=== PATIENT | male | born 1955 | race Caucasian/White ===

== ENCOUNTER → 2016-06-16 | Outpatient (CLI) | payer BC ==
[~2016-06-16] MED LIST: ACET50TAOT PO; ALDA25TA2 PO; ASPI325T PO; ASPI325T28 PO; BACT800T5 PO; BAYE325T12 PO; BUPIVACAINE HCL 0.25% 10 ML VIAL As Ordered ONE; BUPIVACAINE HCL 0.25% 30 ML VIAL As Ordered ONE; CARV3.12 PO; CLEO300C2 PO; CLOP75TA2 PO; CORE25TA PO; CRES20TA PO; CRES5TAB PO; CYCL10TA PO; DOCU100C PO; DOCU10CA PO; FLAG500T PO; FLOM5CAP PO; ISOS30TA4 PO; LEVO750T33 PO; LISI-542 PO; LISI5TAB PO; MAGN400T PO; MAGN400T2 PO; METH-107 PO; MIRA255PW PO; MOM30SS PO; MORP15TASA PO; MULTTAB4 PO; NITR4TASL SL; NORCOTAB PO; NUCY75TA8 PO; OXYC5TAB2 PO; OYSCTAB PO; PANT40TA2 PO; PERC4TAB PO; SENN8.6C PO; SENO8.6T9 PO; SPIR25TA2 PO; TEST1INJ3 IM; TEST200I14 IM; TRAM50TA2 PO; TRIAMCINOLONE ACETONIDE SUSP 40 MG/ML VIAL (J3301) As Ordered ONE; ULTR50TA PO; VITA100066 PO; VITA1CAP2 PO; VITMTA PO; oxyCODONE 5MG TAB As Ordered ONE
--- NOTE | 2016-06-24 01:35 | ECWPNPC ---
PATIENT NAME: KAYLAN MCKOY : 1955 GENDER: MALE VISIT DATE: 06/16/2016 DISCHARGE DATE: 06/16/16 1413 VISIT LOCKED DATE TIME: PHYSICIAN: FILOMENA LAU RESOURCE: FILOMENA LAU REASON FOR APPOINTMENT 1. TPI CURRENT MEDICATIONS TAKING CARVEDILOL 3.125 MG TABLET 1 TABLET WITH FOOD ORALLY TWICE A DAY, NOTES: 06/16/16599 TAKING CRESTOR 20 MG TABLET 1 TABLET ORALLY ONCE A DAY, NOTES: 06/15/162099 TAKING ISOSORBIDE MONONITRATE CR 30 MG TABLET EXTENDED RELEASE 24 HOUR 1 TABLET ORALLY ONCE A DAY, NOTES: 06/16/16599 TAKING TESTOSTERONE CYPIONATE 100 MG/ML SOLUTION 1 ML INTRAMUSCULAR Q 2 WEEKS, NOTES: 3 WEEKS TAKING SPIRONOLACTONE 25 MG TABLET 1/2 TABLET ORALLY ONCE A DAY, NOTES: 06/16/16599 TAKING PANTOPRAZOLE SODIUM 40 MG TABLET DELAYED RELEASE 1 TABLET ORALLY ONCE A DAY, NOTES: 06/16/16599 TAKING PLAVIX 75 MG TABLET 1 TABLET ORALLY ONCE A DAY, NOTES: 06/15/162099 TAKING LISINOPRIL 5 MG TABLET 1 TABLET ORALLY TWICE A DAY, NOTES: 06/16/16599 TAKING MAGNESIUM 400 MG CAPSULE ORALLY TWICE A DAY, NOTES: 06/16/16599 TAKING VITAMIN D 2000 UNIT TABLET ORALLY BID, NOTES: 06/16/16599 TAKING MULTIPLE VITAMIN TABLET 1 TABLET ORALLY ONCE A DAY, NOTES: 06/16/16599 TAKING ASPIRIN 325 MG TABLET 1 TABLET ORALLY ONCE A DAY, NOTES: 06/16/16599 TAKING NITROGLYCERIN 0.4 MG TABLET SUBLINGUAL SUBLINGUAL DIRECTED FOR CHEST DISCOMFORT, NOTES: NONE RECENTLY TAKING DULCOLAX 100 MG TABLET 1 TABLET NEEDED P.O. QHS, NOTES: 06 TAKING SENNA PLUS 8.6-50 MG TABLET 1 TABLET ORALLY ONCE A DAY, NOTES: 06/15/152099 TAKING TAMSULOSIN HCL 0.4 MG CAPSULE EXTENDED RELEASE ORALLY DAILY, NOTES: 06/15/162099 TAKING TRAMADOL HCL 50 MG TABLET 1-2 TABLET ORALLY EVERY 6 HRS PRN PAIN MDD=6, NOTES: 06/15/16 1430 TAKING OXYCODONE-ACETAMINOPHEN 5-325 MG TABLET 1 TABLET NEEDED ORALLY EVERY 6 HRS PRN PAIN MDD=4, NOTES: 06/15/16 1430 TAKING NUCYNTA 75 MG TABLET 1 TABLET ORALLY EVERY 6 HRS PRN PAIN MDD=2, NOTES: 06/15/16 2100 TAKING CYCLOBENZAPRINE HCL 10 MG TABLET 1 TABLET ORALLY BID, NOTES: 06/15/162099 NOT-TAKING FLEXERIL 1 TAB ORAL TWICE A DAY NEEDED NOT-TAKING CIPRO 250 MG TABLET 1 TABLET ORALLY EVERY 12 HRS NOT-TAKING SENNA LAX 8.6 MG TABLET 1 TABLETS AT BEDTIME NEEDED ORALLY ONCE A DAY NOT-TAKING BACTRIM DS 800-160 MG TABLET 1 TABLET ORALLY EVERY 12 HOURS NOT-TAKING CUSTOM DO NOT USE TRAMADOL 50 MG TABLET ONE TAB ORALLY EVERY 4-6 HOURS PRN PAIN NOT-TAKING BACTRIM DS 800-160 MG TABLET 1 TABLET ORALLY EVERY 12 HOURS MEDICATION LIST REVIEWED AND RECONCILED WITH THE PATIENT PAST MEDICAL HISTORY HYPERTENSION HEART ATTACK HYPERCHOLESTEROLEMIA SHOULDER PAIN ALLERGIES AMOXICILLIN: RASH SURGICAL HISTORY BILALTERAL SHOULDER SURGERY CARDIAC STENTS X3 I & D [facility] HOSPITALIZATION/MAJOR DIAGNOSTIC PROCEDURE [facility]OTAL [facility] CARDIAC STENTS 2012 VITAL SIGNS WT 185 LBS, HT 66 IN, BMI 29.86 INDEX, BP 124/77 MM HG, HR 73 /MIN, RR 16 /MIN, TEMP 96.0 F, OXYGEN SAT % 96, NA INITIALS TL 1127, REVIEWED BY: LAYNE. ASSESSMENTS MYALGIA - M79.1 (PRIMARY) PROCEDURES PN TRIGGER POINT INJECTION WITH STEROIDS PRE PROCEDURE DIAGNOSIS 1. MYALGIA 2. PAIN AT BILATERAL NECK AREA, SHOULDER AREA, AND THORACIC AREA. POST PROCEDURE DIAGNOSIS 1. MYALGIA 2. PAIN AT BILATERAL NECK AREA, SHOULDER AREA, AND THORACIC AREA. PROCEDURE TRIGGER POINT INJECTION AT BILATERAL NECK AREA, SHOULDER AREA, AND THORACIC AREA. SURGEON DR. FILOMENA LAU SALVAGE MEND WORKER NONE ANESTHESIA LOCAL PRE PROCEDURE NOTE THE PATIENT HAS A HISTORY OF CHRONIC PAIN AT THE RIGHT AND LEFT NECK AREA, SHOULDER AREA, AND THORACIC AREA. I EVALUATE THE PATIENT AND REVIEWED THE CHART. THERE IS EVIDENCE OF BANDS OF TISSUE WITH RESTRICTION OF MOVEMENT AND PRESENCE OF TRIGGER POINT AT THE AFFECTED AREA. I WENT OVER THE RISKS, ALTERNATIVES, AND BENEFITS ASSOCIATED WITH THIS PROCEDURE. THE PATIENT WOULD LIKE TO PROCEED AND GIVE CONSENT TO PERFORMED THE PROCEDURE. THE PATIENT DENIES UNEXPLAINABLE WEIGHT LOSS, FEVER, CHILLS, OR NEW CHANGES IN URINARY OR BOWEL CONTROL DESCRIPTION OF PROCEDURE THE PATIENT WAS BROUGHT TO THE PROCEDURE ROOM AND PLACED IN THE SITTING POSITION. THE AREA WAS CLEANED WITH ALCOHOL. THE PROCEDURE WAS DONE USING ASEPTIC STERILE TECHNIQUE. I CHECKED LATERALITY AND THE LEVEL WHERE THE PROCEDURE WAS GOING TO BE PERFORMED WITH THE PATIENT AND THE SUPPORTING STAFF AT THE MOMENT OF THE TIME OUT IN THE PROCEDURE ROOM. USING A 25-GAUGE NEEDLE, TRIGGER POINTS WERE INJECTED AT THE RIGHT AND LEFT NECK AREA, SHOULDER AREA, AND THORACIC AREA WITH A TOTAL OF 40 ML OF BUPIVACAINE 0.25% AND KENALOG 40 MG. THERE WAS NO EVIDENCE OF BLOOD, PARESTHESIA OR CEREBROSPINAL FLUID DURING THE PROCEDURE. THE PATIENT WAS SENT TO THE RECOVERY ROOM. THE PATIENT WAS MOVING THE EXTREMITIES AND DOING WELL. THERE WAS NO COMPLICATION DURING THE PROCEDURE POST PROCEDURE NOTE THE PATIENT WILL BE SEEN IN A FOLLOW UP IN THE NEXT FEW WEEKS. INSTRUCTIONS WERE GIVEN, QUESTIONS WERE ANSWERED, AND THE PATIENT EXPRESSED UNDERSTANDING AND AGREES WITH THE PLAN. PROCEDURE CODES 65566 INJECT TRIGGER POINTS, =/> 3 FOLLOW UP 3 WEEKS ELECTRONICALLY SIGNED BY FILOMENA LAU MD ON 06/23/2016 AT 02:37 PM EST DISCLAIMER : THIS IS A VISIT SUMMARY EXTRACTED FROM THE [employer] CHART. IT IS NOT A COPY OF THE [employer] PROGRESS NOTE. MARI
== END ==
LOC: M PAIN 11:20
PROVIDERS: ATTEND Anesthesiology
DX: G89.29 Other chronic pain (principal); M79.1 Myalgia; M54.2 Cervicalgia; M25.511 Pain in right shoulder; M25.512 Pain in left shoulder; M54.6 Pain in thoracic spine; I10 Essential (primary) hypertension; I25.2 Old myocardial infarction; E78.00 Pure hypercholesterolemia, unspecified; Z88.8 Allergy status to other drugs, medicaments and biological substances; Z79.82 Long term (current) use of aspirin; Z79.891 Long term (current) use of opiate analgesic; Z79.899 Other long term (current) drug therapy
CPT/HCPCS: 20553; J3301

== ENCOUNTER → 2016-07-07 | Outpatient (CLI) | payer BC ==
[~2016-07-07] MED LIST changes: -BUPIVACAINE HCL 0.25% 10 ML VIAL As Ordered ONE; -BUPIVACAINE HCL 0.25% 30 ML VIAL As Ordered ONE; -TRIAMCINOLONE ACETONIDE SUSP 40 MG/ML VIAL (J3301) As Ordered ONE; -oxyCODONE 5MG TAB As Ordered ONE
--- NOTE | 2016-07-08 00:04 | ECWPNPC ---
PATIENT NAME: KAYLAN MCKOY : 1955 GENDER: MALE VISIT DATE: 07/07/2016 DISCHARGE DATE: 07/07/16 0959 VISIT LOCKED DATE TIME: PHYSICIAN: ADELINE JOHANSEN RESOURCE: ADELINE JOHANSEN REASON FOR APPOINTMENT 1. POST PROCEDURE-BACK HISTORY OF PRESENT ILLNESS HISTORY OF PRESENT ILLNESS: PAIN THE PATIENT DESCRIBES THE PAIN... FALL RISK SCREENING: SCREENING :NO FALLS IN THE PAST YEAR TODAY'S VISIT: NOTES: S/P TRIGGER POINT INJECTION TO UPPER SHOULDERS COMPLETED ON 06/16/16. NOTES PAIN WAS 8/10 AND PAIN DECREASED TO NEAR 0/10 FOR THE DAY. PAIN WAS BETTER IN THE MORNING AND INCREASED AFTER ACTIVITY AND BY BEDTIME. HAS FAIR MOVEMENT IN ROM OF BOTH ARMS. NOTES PAIN IS MORE CENTERED AT NECK WITH RADIATION INTO BOTH ARMS. IS HAVING INCREASING DIFFICULTY HOLDING OBJECTS AND WITH FINE MOTOT COORDINATION RIGHT GREATER THAN LEFT.. CURRENT MEDICATIONS TAKING CARVEDILOL 3.125 MG TABLET 1 TABLET WITH FOOD ORALLY TWICE A DAY, NOTES: 06/16/16599 TAKING CRESTOR 20 MG TABLET 1 TABLET ORALLY ONCE A DAY, NOTES: 06/15/16 2100 TAKING ISOSORBIDE MONONITRATE CR 30 MG TABLET EXTENDED RELEASE 24 HOUR 1 TABLET ORALLY ONCE A DAY, NOTES: 06/16/16599 TAKING TESTOSTERONE CYPIONATE 100 MG/ML SOLUTION 1 ML INTRAMUSCULAR Q 2 WEEKS, NOTES: 3 WEEKS TAKING SPIRONOLACTONE 25 MG TABLET 1/2 TABLET ORALLY ONCE A DAY, NOTES: 06/16/16599 TAKING PANTOPRAZOLE SODIUM 40 MG TABLET DELAYED RELEASE 1 TABLET ORALLY ONCE A DAY, NOTES: 06/16/16599 TAKING PLAVIX 75 MG TABLET 1 TABLET ORALLY ONCE A DAY, NOTES: 06/15/16 2100 TAKING LISINOPRIL 5 MG TABLET 1 TABLET ORALLY TWICE A DAY, NOTES: 06/16/16599 TAKING MAGNESIUM 400 MG CAPSULE ORALLY TWICE A DAY, NOTES: 06/16/16599 TAKING VITAMIN D 2000 UNIT TABLET ORALLY BID, NOTES: 06/16/16599 TAKING MULTIPLE VITAMIN TABLET 1 TABLET ORALLY ONCE A DAY, NOTES: 06/16/16599 TAKING ASPIRIN 325 MG TABLET 1 TABLET ORALLY ONCE A DAY, NOTES: 06/16/16599 TAKING NITROGLYCERIN 0.4 MG TABLET SUBLINGUAL SUBLINGUAL DIRECTED FOR CHEST DISCOMFORT, NOTES: NONE RECENTLY TAKING SENNA PLUS 8.6-50 MG TABLET 1 TABLET ORALLY ONCE A DAY, NOTES: 06/15/15 2100 TAKING TAMSULOSIN HCL 0.4 MG CAPSULE EXTENDED RELEASE ORALLY DAILY, NOTES: 06/15/16 2100 TAKING TRAMADOL HCL 50 MG TABLET 1-2 TABLET ORALLY EVERY 6 HRS PRN PAIN MDD=6, NOTES: 06/15/16 1430 TAKING OXYCODONE-ACETAMINOPHEN 5-325 MG TABLET 1 TABLET NEEDED ORALLY EVERY 6 HRS PRN PAIN MDD=4, NOTES: 06/15/16 1430 TAKING NUCYNTA 75 MG TABLET 1 TABLET ORALLY EVERY 6 HRS PRN PAIN MDD=2, NOTES: 06/15/16 2100 TAKING CYCLOBENZAPRINE HCL 10 MG TABLET 1 TABLET ORALLY BID, NOTES: 06/15/16 2100 TAKING DOC-Q-LACE 100MG DAILY AT BEDTIME NOT-TAKING FLEXERIL 1 TAB ORAL TWICE A DAY NEEDED NOT-TAKING CIPRO 250 MG TABLET 1 TABLET ORALLY EVERY 12 HRS NOT-TAKING SENNA LAX 8.6 MG TABLET 1 TABLETS AT BEDTIME NEEDED ORALLY ONCE A DAY NOT-TAKING BACTRIM DS 800-160 MG TABLET 1 TABLET ORALLY EVERY 12 HOURS NOT-TAKING CUSTOM DO NOT USE TRAMADOL 50 MG TABLET ONE TAB ORALLY EVERY 4-6 HOURS PRN PAIN NOT-TAKING BACTRIM DS 800-160 MG TABLET 1 TABLET ORALLY EVERY 12 HOURS DISCONTINUED DULCOLAX 100 MG TABLET 1 TABLET NEEDED P.O. QHS, NOTES: 0600 MEDICATION LIST REVIEWED AND RECONCILED WITH THE PATIENT PAST MEDICAL HISTORY HYPERTENSION HEART ATTACK HYPERCHOLESTEROLEMIA SHOULDER PAIN ALLERGIES AMOXICILLIN: RASH SOCIAL HISTORY GENERAL: TOBACCO USE ARE YOU A:NONSMOKER LEARNING BARRIERS / SPECIAL NEEDS ORIENTED TO PLAN OF CARE: PATIENT, PAIN MANAGEMENT PATIENT, ORIENTED TO PLAN OF CARE: PATIENT, PAIN MANAGEMENT PATIENT. NEW PATIENT PAIN DIARY TODAY'S VISITNOTES FROM 0-10, WHAT LEVEL IS YOUR PAIN TODAY?0 PAIN CLINIC PFS, CLERGY, PUBLIC HEALTH REFERRALS PFS REFERRAL NEEDED?NO CLERGY REFERRAL NEEDED?NO PUBLIC HEALTH REFERRAL NEEDED?NO WAS THE PROVIDER NOTIFIED OF ANY PERTINENT INFO?NO PFS REFERRAL NEEDED?NO CLERGY REFERRAL NEEDED?NO PUBLIC HEALTH REFERRAL NEEDED?NO WAS THE PROVIDER NOTIFIED OF ANY PERTINENT INFO?NO REVIEW OF SYSTEMS CONSTITUTIONAL: ANY CHANGE IN YOUR MEDICAL CONDITION? NO . CHILLS NO . FEVER NO . INFECTION: DO YOU HAVE NEW INFECTIONS? NO . DO YOU HAVE HISTORY OF MRSA? NO . MUSCULOSKELETAL: ANY NEW PATTERNS OF PAIN OR NUMBNESS? NO . GASTROENTEROLOGY: ANY NEW CHANGE IN BOWEL CONTROL? NO . GENITOURINARY: ANY NEW CHANGE IN BLADDER CONTROL? NO . IS THERE A CHANCE YOU COULD BE ? NO . HEMATOLOGY/LYMPH: DO YOU TAKE ANY BLOOD THINNERS? (FOR EXAMPLE- COUMADIN, PLAVIX, AGGRENOX, PLATEL, PRADAXA, OR XARELTO) YES PLAVIX . WHEN WAS YOUR LAST DOSE? DATE: TIME: . NEUROLOGY: HAVE YOU FALLEN IN THE PAST 6 MONTHS? NO . ANY NEW EXTREMITY NUMBNESS OR WEAKNESS? NO . CARDIOLOGY: DO YOU HAVE A PACEMAKER OR DEFIBRILLATOR? NO . CHEST PAIN PATIENT DENIES . RESPIRATORY: HAVE YOU BEEN SICK IN THE PAST WEEK? NO . FEVER NO . FLU LIKE SYMPTOMS? NO . COUGH NO . INTEGUMENTARY: DO YOU HAVE ANY RASHES OR OPEN SORES? NO . ALLERGIC/IMMUNO: ARE YOU ALLERGIC TO SHELLFISH OR IV DYE? NO . ANY NEW ALLERGIES? NO . PSYCHIATRIC: DO YOU HAVE THOUGHTS OF HURTING YOURSELF OR SOMEONE ELSE? NO . ARE YOU ABUSED, NEGLECTED, OR IN AN UNSAFE ENVIRONMENT? NO . ENDOCRINOLOGY: ARE YOU DIABETIC? NO . OTHER: DO YOU NEED ANY PRESCRIPTIONS? YES NUCYNTA, DOC-Q-LACE . IF YES, PLEASE LIST: ____ . ANY NEW PROBLEMS WITH YOUR MEDICATIONS? NO . WHEN DID YOU LAST EAT? ____ . WHEN DID YOU LAST DRINK? ____ . WHAT DID YOU LAST DRINK? ____ . NAME OF PERSON DRIVING YOU HOME? ____ . DO YOU HAVE ANY OTHER QUESTIONS OR CONCERNS NO . REVIEWED BY: PROVIDER: ADELINE HERRMANN . VITAL SIGNS WT 196.8 LBS, HT 66 IN, BMI 31.76 INDEX, BP 175/80 MM HG, HR 87 /MIN, RR 18 /MIN, TEMP 97.4 F, OXYGEN SAT % 96%, NA INITIALS SC 09:04, REVIEWED BY: MLF. EXAMINATION GENERAL EXAMINATION: PSYCHALERT , ORIENTED X 3 , APPROPRIATE MOOD AND AFFECT . LUNGS:CLEAR TO AUSCULTATION BILATERALLY. HEART:HEART RATE REGULAR. JOINTS:BILATERAL, SHOULDER , PAIN WITH PALPATION AND RANGE OF MOTION. TRIGGERPOINTS OVER SHOULDERS AND AROUND SHOULDER INCISIONS. NUMBNESS REPORTED WITH RIGHT SHOULDER ELEVATION. MINE SURVEYOR STRENGTH DECREASED RUE>LUE. NEUROLOGIC EXAM:DECREASED SENSATION ENTIRE RIGHT UPPER EXTREMITY, AND OVER C6-7 DERMATONE, C5 DERMATONE LEFT UPPER EXTREMITY. DTR'S 1+ RUE, TRACE TO ABSENT LEFT UPPER EXTREMITY.. ASSESSMENTS MYALGIA - M79.1 (PRIMARY) SHOULDER PAIN, BILATERAL - M25.511 CERVICAL RADICULOPATHY AT C6 - M54.12 CERVICAL DISC DISPLACEMENT - M50.20 TREATMENT MYALGIA REFILL NUCYNTA TABLET, 75 MG, 1 TABLET, ORALLY, EVERY 6 HRS PRN PAIN MDD=2, 30 DAY(S), 60, REFILLS 0, NOTES: 06/15/16 2100 START COLACE CAPSULE, 100 MG, 1 CAPSULE, ORALLY, BID, 30 DAY(S), 60 CAPSULE, REFILLS 4 [facility] MRI SPINE, CERVICAL WITHOUT [id number],SUSAN M 07/07/2016 9:52:10 AM > INCREASING PARETHESIAS, RADICALAR PAIN NOTES: ISTOP REGISTRY REVIEWED AND DEMNOSTRATES COMPLLIANCE. BRINGS IN MEDICATIONS WHICH IS APPROPRIATE FOR WHAT WAS DISPENSED. RECENT URINE TOXICOLOGY REVIEWED. NO UNAUTHORIZED MEDICATIONS. NO ILLICIT SUBSTANCES AND PRESCRIBED MEDICATIONS WERE PRESENT. [facility] RE[facility]ON:KNOWN C6-7 NERVE ROOT COMPRESSION, INCREASING PROBLEMS WITH DISTAL COORDINATION, RUE WEAKNESS, RADICULAR PAIN PROCEDURE CODES FA211 ESTABILISHED PATIENT [facility] FAC[facility] CHARGE FOLLOW UP 6 WEEKS (REASON: CHECK AUTH FOR MRI CERVICAL SPINE) ELECTRONICALLY SIGNED BY KHOA MULLINS ON 07/07/2016 AT 05:57 PM EST DISCLAIMER : THIS IS A VISIT SUMMARY EXTRACTED FROM THE [employer] CHART. IT IS NOT A COPY OF THE [employer] PROGRESS NOTE. MTDD
== END ==
LOC: M PAIN 09:00
PROVIDERS: ATTEND Nurse Practitioner Family
DX: Z09 Encounter for follow-up examination after completed treatment for conditions other than malignant neoplasm (principal); G89.29 Other chronic pain; M79.1 Myalgia; M25.511 Pain in right shoulder; M54.12 Radiculopathy, cervical region; M50.20 Other cervical disc displacement, unspecified cervical region; I10 Essential (primary) hypertension; E78.00 Pure hypercholesterolemia, unspecified; Z88.1 Allergy status to other antibiotic agents; Z79.01 Long term (current) use of anticoagulants; Z79.82 Long term (current) use of aspirin; Z79.891 Long term (current) use of opiate analgesic; Z79.899 Other long term (current) drug therapy; Z86.79 Personal history of other diseases of the circulatory system

== ENCOUNTER → 2016-07-21 | Outpatient (CLI) | payer BC ==
--- NOTE | 2016-07-21 11:31 | REP ---
MRI CERVICAL SPINE WITHOUT CONTRAST: HISTORY: Neck and bilateral shoulder pain. COMPARISON: 12/31/2014. A disc bulge is present at the C3-4 level. There is minimal effacement of the thecal sac without spinal cord compression. Uncinate process hypertrophy is present on the left. This produces minimal narrowing of the left C3 neural foramen. The right C3 neural foramen is patent. A disc bulge with associated osteophyte formation is present at the C4-5 level. There is moderate effacement of the thecal sac without spinal cord compression. Bilateral uncinate process hypertrophy is present. This produces mild narrowing of the C4 neural foramina. A disc bulge with associated osteophyte formation is present at the C5-6 level. The disc bulge is decreased in size. There is moderate effacement of the thecal sac without spinal cord compression. The previously noted minimal spinal cord compression is not seen. Bilateral uncinate process hypertrophy is present. This produces mild narrowing of the C5 neural foramina. A disc bulge is present at the C6-7 level. There is mild effacement of the thecal sac without spinal cord compression. Bilateral uncinate process hypertrophy is present. This produces minimal and moderate narrowing of the right and left C6 neural foramina respectively. There is no other disc bulge or herniation. The remaining neural foramina are patent. The spinal cord is normal in signal intensity. There is no intradural extramedullary lesion. The C4-5 through C6-7 intervertebral discs are decreased in height consistent with disc degeneration. Normal signal intensity is present in the cervical vertebral bodies. IMPRESSION: There is cervical spondylosis at the C3-4 through C6-7 levels without spinal cord compression. The previously noted spinal cord compression at the C5-6 level is not seen. There is no other significant change. Signed by Amaury Barajas MD 07/21/2016 11:34 A
== END ==
LOC: M RAD 08:39
PROVIDERS: ATTEND Nurse Practitioner Family
DX: M47.812 Spondylosis without myelopathy or radiculopathy, cervical region (principal)

== ENCOUNTER → 2016-07-31 | Outpatient (CLI) | payer BC | LOC: M LAB 08:38 | PROVIDERS: ATTEND Family Medicine | DX: E29.1 Testicular hypofunction (principal) ==

== ENCOUNTER → 2016-08-18 | Outpatient (CLI) | payer BC ==
--- NOTE | 2016-08-25 01:33 | ECWPNPC ---
PATIENT NAME: KAYLAN MCKOY : 1955 GENDER: MALE VISIT DATE: 08/18/2016 DISCHARGE DATE: 08/18/16 0959 VISIT LOCKED DATE TIME: PHYSICIAN: ADELINE JOHANSEN RESOURCE: ADELINE JOHANSEN REASON FOR APPOINTMENT 1. CHECK AUTH FOR MRI CERVICAL SPINE HISTORY OF PRESENT ILLNESS HISTORY OF PRESENT ILLNESS: PAIN THE PATIENT DESCRIBES THE PAIN... FALL RISK SCREENING: SCREENING :NO FALLS IN THE PAST YEAR TODAY'S VISIT: NOTES: COMPLETED MRI OF CSPINE - REFERRED TO DR LIN AT [facility]. IS ATTENDING PT AND IS BEING CONSIDERD FOR INJECTION TREATMENT. DOES REMAIN ON PLAVIX. PT IS HELPING. RATES PAIN TODAY 4/10. DESCRIBES PAIN CONSTANT, ACHING, SHARP TENDER AND SORE. COMTINUES TO STRUGGLE WIT ROM OF THE SHOULDERS.. CURRENT MEDICATIONS TAKING CARVEDILOL 3.125 MG TABLET 1 TABLET WITH FOOD ORALLY TWICE A DAY TAKING CRESTOR 20 MG TABLET 1 TABLET ORALLY ONCE A DAY TAKING ISOSORBIDE MONONITRATE CR 30 MG TABLET EXTENDED RELEASE 24 HOUR 1 TABLET ORALLY ONCE A DAY TAKING TESTOSTERONE CYPIONATE 100 MG/ML SOLUTION 1 ML INTRAMUSCULAR Q 2 WEEKS TAKING SPIRONOLACTONE 25 MG TABLET 1/2 TABLET ORALLY ONCE A DAY TAKING PANTOPRAZOLE SODIUM 40 MG TABLET DELAYED RELEASE 1 TABLET ORALLY ONCE A DAY TAKING PLAVIX 75 MG TABLET 1 TABLET ORALLY ONCE A DAY TAKING LISINOPRIL 5 MG TABLET 1 TABLET ORALLY TWICE A DAY TAKING MAGNESIUM 400 MG CAPSULE ORALLY TWICE A DAY TAKING VITAMIN D 2000 UNIT TABLET ORALLY BID TAKING MULTIPLE VITAMIN TABLET 1 TABLET ORALLY ONCE A DAY TAKING ASPIRIN 325 MG TABLET 1 TABLET ORALLY ONCE A DAY TAKING NITROGLYCERIN 0.4 MG TABLET SUBLINGUAL SUBLINGUAL DIRECTED FOR CHEST DISCOMFORT TAKING SENNA PLUS 8.6-50 MG TABLET 1 TABLET ORALLY ONCE A DAY TAKING TAMSULOSIN HCL 0.4 MG CAPSULE EXTENDED RELEASE ORALLY DAILY TAKING TRAMADOL HCL 50 MG TABLET 1-2 TABLET ORALLY EVERY 6 HRS PRN PAIN MDD=6 TAKING OXYCODONE-ACETAMINOPHEN 5-325 MG TABLET 1 TABLET NEEDED ORALLY EVERY 6 HRS PRN PAIN MDD=4 TAKING CYCLOBENZAPRINE HCL 10 MG TABLET 1 TABLET ORALLY BID TAKING NUCYNTA 75 MG TABLET 1 TABLET ORALLY EVERY 6 HRS PRN PAIN MDD=2 TAKING COLACE 100 MG CAPSULE 1 CAPSULE ORALLY BID NOT-TAKING DOC-Q-LACE 100MG DAILY AT BEDTIME NOT-TAKING FLEXERIL 1 TAB ORAL TWICE A DAY NEEDED NOT-TAKING CIPRO 250 MG TABLET 1 TABLET ORALLY EVERY 12 HRS NOT-TAKING SENNA LAX 8.6 MG TABLET 1 TABLETS AT BEDTIME NEEDED ORALLY ONCE A DAY NOT-TAKING BACTRIM DS 800-160 MG TABLET 1 TABLET ORALLY EVERY 12 HOURS NOT-TAKING CUSTOM DO NOT USE TRAMADOL 50 MG TABLET ONE TAB ORALLY EVERY 4-6 HOURS PRN PAIN NOT-TAKING BACTRIM DS 800-160 MG TABLET 1 TABLET ORALLY EVERY 12 HOURS MEDICATION LIST REVIEWED AND RECONCILED WITH THE PATIENT PAST MEDICAL HISTORY HYPERTENSION HEART ATTACK HYPERCHOLESTEROLEMIA SHOULDER PAIN ALLERGIES AMOXICILLIN: RASH SOCIAL HISTORY GENERAL: TOBACCO USE ARE YOU A:NONSMOKER LEARNING BARRIERS / SPECIAL NEEDS ORIENTED TO PLAN OF CARE: PATIENT, PAIN MANAGEMENT PATIENT, ORIENTED TO PLAN OF CARE: PATIENT, PAIN MANAGEMENT PATIENT. NEW PATIENT PAIN DIARY TODAY'S VISITNOTES FROM 0-10, WHAT LEVEL IS YOUR PAIN TODAY?0 PAIN CLINIC PFS, CLERGY, PUBLIC HEALTH REFERRALS PFS REFERRAL NEEDED?NO CLERGY REFERRAL NEEDED?NO PUBLIC HEALTH REFERRAL NEEDED?NO WAS THE PROVIDER NOTIFIED OF ANY PERTINENT INFO?NO PFS REFERRAL NEEDED?NO CLERGY REFERRAL NEEDED?NO PUBLIC HEALTH REFERRAL NEEDED?NO WAS THE PROVIDER NOTIFIED OF ANY PERTINENT INFO?NO REVIEW OF SYSTEMS CONSTITUTIONAL: ANY CHANGE IN YOUR MEDICAL CONDITION? NO . CHILLS NO . FEVER NO . INFECTION: DO YOU HAVE NEW INFECTIONS? NO . DO YOU HAVE HISTORY OF MRSA? NO . MUSCULOSKELETAL: ANY NEW PATTERNS OF PAIN OR NUMBNESS? NO . GASTROENTEROLOGY: ANY NEW CHANGE IN BOWEL CONTROL? NO . GENITOURINARY: ANY NEW CHANGE IN BLADDER CONTROL? NO . IS THERE A CHANCE YOU COULD BE ? NO . HEMATOLOGY/LYMPH: DO YOU TAKE ANY BLOOD THINNERS? (FOR EXAMPLE- COUMADIN, PLAVIX, AGGRENOX, PLATEL, PRADAXA, OR XARELTO) YES, PLAVIX . WHEN WAS YOUR LAST DOSE? DATE:08/18/16 TIME: 0600 . NEUROLOGY: HAVE YOU FALLEN IN THE PAST 6 MONTHS? NO . ANY NEW EXTREMITY NUMBNESS OR WEAKNESS? NO . CARDIOLOGY: DO YOU HAVE A PACEMAKER OR DEFIBRILLATOR? NO . CHEST PAIN NONE RECENT . RESPIRATORY: HAVE YOU BEEN SICK IN THE PAST WEEK? NO . FEVER NO . FLU LIKE SYMPTOMS? NO . COUGH NO . INTEGUMENTARY: DO YOU HAVE ANY RASHES OR OPEN SORES? NO . ALLERGIC/IMMUNO: ARE YOU ALLERGIC TO SHELLFISH OR IV DYE? NO . ANY NEW ALLERGIES? NO . PSYCHIATRIC: DO YOU HAVE THOUGHTS OF HURTING YOURSELF OR SOMEONE ELSE? NO . ARE YOU ABUSED, NEGLECTED, OR IN AN UNSAFE ENVIRONMENT? NO . ENDOCRINOLOGY: ARE YOU DIABETIC? NO . OTHER: DO YOU NEED ANY PRESCRIPTIONS? NO . IF YES, PLEASE LIST: ____ . ANY NEW PROBLEMS WITH YOUR MEDICATIONS? NO . WHEN DID YOU LAST EAT? ____ . WHEN DID YOU LAST DRINK? ____ . WHAT DID YOU LAST DRINK? ____ . NAME OF PERSON DRIVING YOU HOME? ____ . DO YOU HAVE ANY OTHER QUESTIONS OR CONCERNS NO . SKIN: DO YOU HAVE ANY RASHES OR OPEN SORES? ETREMELY DRY AND CRACKED SKIN OVER HANDS . REVIEWED BY: PROVIDER: ADELINE HERRMANN . VITAL SIGNS WT 196.8 LBS, HT 66 IN, BMI 31.76 INDEX, BP 152/96 MM HG, HR 89 /MIN, RR 16 /MIN, TEMP 96.6 F, OXYGEN SAT % 97, NA INITIALS TL 0859, REVIEWED BY: YENNI BP- RN C.S. AWARE- TL. EXAMINATION GENERAL EXAMINATION: PSYCHALERT , ORIENTED X 3 , APPROPRIATE MOOD AND AFFECT . LUNGS:CLEAR TO AUSCULTATION BILATERALLY. HEART:HEART RATE REGULAR. JOINTS:BILATERAL, SHOULDER , PAIN WITH PALPATION AND RANGE OF MOTION. TRIGGERPOINTS OVER SHOULDERS AND AROUND SHOULDER INCISIONS. NUMBNESS REPORTED WITH RIGHT SHOULDER ELEVATION. SWITCHBOARD OPERATOR SUPERVISOR STRENGTH DECREASED RUE>LUE. NEUROLOGIC EXAM:DECREASED SENSATION ENTIRE RIGHT UPPER EXTREMITY, AND OVER C6-7 DERMATONE, C5 DERMATONE LEFT UPPER EXTREMITY. DTR'S 1+ RUE, TRACE TO ABSENT LEFT UPPER EXTREMITY.. ASSESSMENTS MYALGIA - M79.1 (PRIMARY) SHOULDER PAIN, BILATERAL - M25.511 CERVICAL RADICULOPATHY AT C6 - M54.12 CERVICAL DISC DISPLACEMENT - M50.20 TREATMENT MYALGIA NOTES: CONTINUE PHYSICAL THERAPY. FOLLOW UP WITH DR HEATON AND SOS. CALL WHEN MEDS DUE. PROCEDURE CODES FA211 ESTABILISHED PATIENT [facility] FACILITY CHARGE DISPOSITION & COMMUNICATION FOLLOW UP 2-3 MONTHS ELECTRONICALLY SIGNED BY KHOA MULLINS ON 08/22/2016 AT 09:54 AM EDT DISCLAIMER : THIS IS A VISIT SUMMARY EXTRACTED FROM THE [employer] CHART. IT IS NOT A COPY OF THE [employer] PROGRESS NOTE. MARI
== END ==
LOC: M PAIN 09:00
PROVIDERS: ATTEND Nurse Practitioner Family
DX: Z09 Encounter for follow-up examination after completed treatment for conditions other than malignant neoplasm (principal); G89.29 Other chronic pain; M79.1 Myalgia; M25.511 Pain in right shoulder; M54.12 Radiculopathy, cervical region; M50.20 Other cervical disc displacement, unspecified cervical region; I10 Essential (primary) hypertension; Z86.79 Personal history of other diseases of the circulatory system; E78.00 Pure hypercholesterolemia, unspecified; Z88.0 Allergy status to penicillin; Z79.01 Long term (current) use of anticoagulants; Z79.82 Long term (current) use of aspirin; Z79.891 Long term (current) use of opiate analgesic; Z79.899 Other long term (current) drug therapy

== ENCOUNTER → 2016-11-03 | Outpatient (CLI) | payer BC ==
--- NOTE | 2016-11-25 00:31 | ECWPNPC ---
PATIENT NAME: KAYLAN MCKOY : 1955 GENDER: MALE VISIT DATE: 11/03/2016 DISCHARGE DATE: 11/03/16 1129 VISIT LOCKED DATE TIME: PHYSICIAN: ADELINE JOHANSEN RESOURCE: ADELINE JOHANSEN HISTORY OF PRESENT ILLNESS HISTORY OF PRESENT ILLNESS: PAIN THE PATIENT DESCRIBES THE PAIN... FALL RISK SCREENING: SCREENING :NO FALLS IN THE PAST YEAR TODAY'S VISIT: NOTES: RATES PAIN TODAY 2/10. NOTES WORST AREA IS BILATERAL SHOULDERS. IS ATTENDING PT FOR NECK. . CURRENT MEDICATIONS TAKING CARVEDILOL 3.125 MG TABLET 1 TABLET WITH FOOD ORALLY TWICE A DAY TAKING CRESTOR 20 MG TABLET 1 TABLET ORALLY ONCE A DAY TAKING ISOSORBIDE MONONITRATE ER 30 MG TABLET EXTENDED RELEASE 24 HOUR 1 TABLET ORALLY ONCE A DAY TAKING TESTOSTERONE CYPIONATE 100 MG/ML SOLUTION 1 ML INTRAMUSCULAR Q 2 WEEKS TAKING SPIRONOLACTONE 25 MG TABLET 1/2 TABLET ORALLY ONCE A DAY TAKING PANTOPRAZOLE SODIUM 40 MG TABLET DELAYED RELEASE 1 TABLET ORALLY ONCE A DAY TAKING PLAVIX 75 MG TABLET 1 TABLET ORALLY ONCE A DAY TAKING LISINOPRIL 5 MG TABLET 1 TABLET ORALLY TWICE A DAY TAKING MAGNESIUM 400 MG CAPSULE ORALLY TWICE A DAY TAKING VITAMIN D 2000 UNIT TABLET ORALLY BID TAKING MULTIPLE VITAMIN TABLET 1 TABLET ORALLY ONCE A DAY TAKING ASPIRIN 325 MG TABLET 1 TABLET ORALLY ONCE A DAY TAKING NITROGLYCERIN 0.4 MG TABLET SUBLINGUAL SUBLINGUAL DIRECTED FOR CHEST DISCOMFORT TAKING SENNA PLUS 8.6-50 MG TABLET 1 TABLET ORALLY ONCE A DAY TAKING TAMSULOSIN HCL 0.4 MG CAPSULE EXTENDED RELEASE ORALLY DAILY TAKING TRAMADOL HCL 50 MG TABLET 1-2 TABLET ORALLY EVERY 6 HRS PRN PAIN MDD=6 TAKING OXYCODONE-ACETAMINOPHEN 5-325 MG TABLET 1 TABLET NEEDED ORALLY EVERY 6 HRS PRN PAIN MDD=4 TAKING CYCLOBENZAPRINE HCL 10 MG TABLET 1 TABLET ORALLY BID TAKING NUCYNTA 75 MG TABLET 1 TABLET ORALLY EVERY 6 HRS PRN PAIN MDD=2 TAKING COLACE 100 MG CAPSULE 1 CAPSULE ORALLY BID NOT-TAKING BACTRIM DS 800-160 TABLET 1 TABLET ORALLY EVERY 12 HOURS NOT-TAKING DOC-Q-LACE 100MG DAILY AT BEDTIME NOT-TAKING FLEXERIL 1 TAB ORAL TWICE A DAY NEEDED NOT-TAKING CIPRO 250 MG TABLET 1 TABLET ORALLY EVERY 12 HRS NOT-TAKING SENNA LAX 8.6 MG TABLET 1 TABLETS AT BEDTIME NEEDED ORALLY ONCE A DAY NOT-TAKING BACTRIM DS 800-160 MG TABLET 1 TABLET ORALLY EVERY 12 HOURS NOT-TAKING CUSTOM DO NOT USE TRAMADOL 50 MG TABLET ONE TAB ORALLY EVERY 4-6 HOURS PRN PAIN DISCONTINUED BACTRIM DS 800-160 MG TABLET 1 TABLET ORALLY EVERY 12 HOURS NEEDED FOR 7 DAYS WHEN YOU GET A GROIN INFECTION MEDICATION LIST REVIEWED AND RECONCILED WITH THE PATIENT PAST MEDICAL HISTORY HYPERTENSION HEART ATTACK HYPERCHOLESTEROLEMIA SHOULDER PAIN ALLERGIES AMOXICILLIN: RASH REVIEW OF SYSTEMS CONSTITUTIONAL: ANY CHANGE IN YOUR MEDICAL CONDITION? UTI A MONTH AGO TREATED WITH BACTRIM DS . CHILLS NO . FEVER NO . INFECTION: DO YOU HAVE NEW INFECTIONS? NO . DO YOU HAVE HISTORY OF MRSA? NO . MUSCULOSKELETAL: ANY NEW PATTERNS OF PAIN OR NUMBNESS? NO . GASTROENTEROLOGY: ANY NEW CHANGE IN BOWEL CONTROL? NO . GENITOURINARY: ANY NEW CHANGE IN BLADDER CONTROL? NO . IS THERE A CHANCE YOU COULD BE ? NO . HEMATOLOGY/LYMPH: DO YOU TAKE ANY BLOOD THINNERS? (FOR EXAMPLE- COUMADIN, PLAVIX, AGGRENOX, PLATEL, PRADAXA, OR XARELTO) YES, PLAVIX . WHEN WAS YOUR LAST DOSE? DATE: TIME: 11/03/16 0600 . NEUROLOGY: HAVE YOU FALLEN IN THE PAST 6 MONTHS? NO . ANY NEW EXTREMITY NUMBNESS OR WEAKNESS? NO . CARDIOLOGY: DO YOU HAVE A PACEMAKER OR DEFIBRILLATOR? NO . ANGINA NO . RESPIRATORY: HAVE YOU BEEN SICK IN THE PAST WEEK? NO . FEVER NO . FLU LIKE SYMPTOMS? NO . COUGH NO . INTEGUMENTARY: DO YOU HAVE ANY RASHES OR OPEN SORES? NO . ALLERGIC/IMMUNO: ARE YOU ALLERGIC TO SHELLFISH OR IV DYE? NO . ANY NEW ALLERGIES? NO . PSYCHIATRIC: DO YOU HAVE THOUGHTS OF HURTING YOURSELF OR SOMEONE ELSE? NO . ARE YOU ABUSED, NEGLECTED, OR IN AN UNSAFE ENVIRONMENT? NO . ENDOCRINOLOGY: ARE YOU DIABETIC? NO . OTHER: DO YOU NEED ANY PRESCRIPTIONS? YES . IF YES, PLEASE LIST: NUCYNTA . ANY NEW PROBLEMS WITH YOUR MEDICATIONS? NO . WHEN DID YOU LAST EAT? ____ . WHEN DID YOU LAST DRINK? ____ . WHAT DID YOU LAST DRINK? ____ . NAME OF PERSON DRIVING YOU HOME? ____ . DO YOU HAVE ANY OTHER QUESTIONS OR CONCERNS NO . REVIEWED BY: PROVIDER: ADELINE WALKER PAIL BAILER . VITAL SIGNS WT 185 LBS, HT 66 IN, BMI 29.86 INDEX, BP 142/81 MM HG, HR 72 /MIN, RR 18 /MIN, TEMP 98.3 F, OXYGEN SAT % 95%, NA INITIALS AW 1043, REVIEWED BY: AD. EXAMINATION GENERAL EXAMINATION: PSYCHALERT , ORIENTED X 3 , APPROPRIATE MOOD AND AFFECT . LUNGS:CLEAR TO AUSCULTATION BILATERALLY. HEART:HEART RATE REGULAR. JOINTS:BILATERAL, SHOULDER , PAIN WITH PALPATION AND RANGE OF MOTION. TRIGGERPOINTS OVER SHOULDERS AND AROUND SHOULDER INCISIONS. NUMBNESS REPORTED WITH RIGHT SHOULDER ELEVATION. BRINE MIXER OPERATOR STRENGTH DECREASED RUE>LUE. NEUROLOGIC EXAM:DECREASED SENSATION ENTIRE RIGHT UPPER EXTREMITY, AND OVER C6-7 DERMATONE, C5 DERMATONE LEFT UPPER EXTREMITY. DTR'S 1+ RUE, TRACE TO ABSENT LEFT UPPER EXTREMITY.. ASSESSMENTS MYALGIA - M79.1 (PRIMARY) SHOULDER PAIN, BILATERAL - M25.511 CERVICAL RADICULOPATHY AT C6 - M54.12 CERVICAL DISC DISPLACEMENT - M50.20 TREATMENT MYALGIA REFILL NUCYNTA TABLET, 75 MG, 1 TABLET, ORALLY, EVERY 6 HRS PRN PAIN MDD=2, 30 DAY(S), 60, REFILLS 0 NOTES: COMPLETE PHYSICAL THERAPY. CONTINUE WALKING, EXERCISES AND STRETCHES. CONTINUE CURRENT MEDS. CLINICAL NOTES: ISTOP REGISTRY REVIEWED AND DEMNOSTRATES COMPLLIANCE. BRINGS IN MEDICATIONS WHICH IS APPROPRIATE FOR WHAT WAS DISPENSED. RECENT URINE TOXICOLOGY REVIEWED. NO UNAUTHORIZED MEDICATIONS. NO ILLICIT SUBSTANCES AND PRESCRIBED MEDICATIONS WERE PRESENT. PROCEDURE CODES FA211 ESTABILISHED PATIENT [facility] CHARGE DISPOSITION & COMMUNICATION FOLLOW UP 3 MONTHS (REASON: NECK, SHOULDER PAIN) ELECTRONICALLY SIGNED BY KHOA MULLINS ON 11/24/2016 AT 08:05 PM EDT DISCLAIMER : THIS IS A VISIT SUMMARY EXTRACTED FROM THE [employer] CHART. IT IS NOT A COPY OF THE [employer] PROGRESS NOTE. MARI
== END ==
LOC: M PAIN 10:40
PROVIDERS: ATTEND Nurse Practitioner Family
DX: M79.1 Myalgia (principal); M25.511 Pain in right shoulder; M54.12 Radiculopathy, cervical region; M50.20 Other cervical disc displacement, unspecified cervical region; Z79.82 Long term (current) use of aspirin; Z79.891 Long term (current) use of opiate analgesic; Z79.899 Other long term (current) drug therapy; Z88.0 Allergy status to penicillin

== ENCOUNTER → 2016-11-17 | Outpatient (CLI) | payer BC ==
[2016-11-17 06:43] LABS: MEAN CORPUSCULAR HGB CONC 32.9 g/dl (32.0-36.5); MEAN CORPUSCULAR VOLUME 91.3 fl (80.0-96.0); RED CELL DISTRIBUTION WIDTH 13.2 % (11.5-14.5); WHITE BLOOD COUNT 4.7 K/mm3 (4.0-10.0)
[2016-11-17 06:58] LABS: ALBUMIN 3.7 GM/DL (3.2-5.2); ALBUMIN/GLOBULIN RATIO 1.09 (1.00-1.93); BILIRUBIN,TOTAL 0.5 MG/DL (0.2-1.0); CALCIUM LEVEL 8.5 MG/DL (8.8-10.2); CREATININE FOR GFR 1.3 MG/DL (0.70-1.30); GLOMERULAR FILTRATION RATE 59.7 (>49); POTASSIUM SERUM 4.6 MEQ/L (3.5-5.1); TOTAL PROTEIN 7.1 GM/DL (6.4-8.2)
== END ==
LOC: M LAB 06:11
PROVIDERS: ATTEND Physician Assistant
DX: I25.10 Atherosclerotic heart disease of native coronary artery without angina pectoris (principal); I25.5 Ischemic cardiomyopathy; E78.2 Mixed hyperlipidemia

== ENCOUNTER → 2017-02-01 | Outpatient (CLI) | payer BC ==
[~2017-02-01] MED LIST changes: -DOCU100C PO; +DOCU100C16 PO; +LEVO750T13 PO; -LEVO750T33 PO; -METH-107 PO; +METH1TAB40 PO; +NUCY75TA3 PO; -NUCY75TA8 PO
--- NOTE | 2017-02-11 23:54 | ECWPNPC ---
PATIENT NAME: KAYLAN MCKOY : 1955 GENDER: MALE VISIT DATE: 02/01/2017 DISCHARGE DATE: 02/01/17912 VISIT LOCKED DATE TIME: PHYSICIAN: ADELINE JOHANSEN RESOURCE: ADELINE JOHANSEN REASON FOR APPOINTMENT 1. SHOULDERS HISTORY OF PRESENT ILLNESS HISTORY OF PRESENT ILLNESS: PAIN THE PATIENT DESCRIBES THE PAIN... FALL RISK SCREENING: SCREENING :NO FALLS IN THE PAST YEAR TODAY'S VISIT: NOTES: RATES PAIN TODAY 3/10. DESCRIBES PAIN INTERMITTANT, ACHING, SHARP, STABBING TENDER AND SORE. PAIN IN CENTERED IN BOTH SHOULDERS. REPORTS MEDICATIONS ALLOW FOR SLEEP AND RELIEF OF PAIN. CONTINES WITH HIS HOME EXERCISE PROGRAM. CURRENT MEDICATIONS TAKING CARVEDILOL 3.125 MG TABLET 1 TABLET WITH FOOD ORALLY TWICE A DAY TAKING CRESTOR 20 MG TABLET 1 TABLET ORALLY ONCE A DAY TAKING ISOSORBIDE MONONITRATE ER 30 MG TABLET EXTENDED RELEASE 24 HOUR 1 TABLET ORALLY ONCE A DAY TAKING TESTOSTERONE CYPIONATE 100 MG/ML SOLUTION 1 ML INTRAMUSCULAR Q 2 WEEKS TAKING SPIRONOLACTONE 25 MG TABLET 1/2 TABLET ORALLY ONCE A DAY TAKING PANTOPRAZOLE SODIUM 40 MG TABLET DELAYED RELEASE 1 TABLET ORALLY ONCE A DAY TAKING PLAVIX 75 MG TABLET 1 TABLET ORALLY ONCE A DAY TAKING LISINOPRIL 5 MG TABLET 1 TABLET ORALLY TWICE A DAY TAKING MAGNESIUM 400 MG CAPSULE ORALLY TWICE A DAY TAKING VITAMIN D 2000 UNIT TABLET ORALLY BID TAKING MULTIPLE VITAMIN TABLET 1 TABLET ORALLY ONCE A DAY TAKING ASPIRIN 325 MG TABLET 1 TABLET ORALLY ONCE A DAY TAKING NITROGLYCERIN 0.4 MG TABLET SUBLINGUAL SUBLINGUAL DIRECTED FOR CHEST DISCOMFORT TAKING SENNA PLUS 8.6-50 MG TABLET 1 TABLET ORALLY ONCE A DAY TAKING TAMSULOSIN HCL 0.4 MG CAPSULE EXTENDED RELEASE ORALLY DAILY TAKING OXYCODONE-ACETAMINOPHEN 5-325 MG TABLET 1 TABLET NEEDED ORALLY EVERY 6 HRS PRN PAIN MDD=4 TAKING CYCLOBENZAPRINE HCL 10 MG TABLET 1 TABLET ORALLY BID TAKING COLACE 100 MG CAPSULE 1 CAPSULE ORALLY BID TAKING NUCYNTA 75 MG TABLET 1 TABLET ORALLY EVERY 6 HRS PRN PAIN MDD=2 TAKING TRAMADOL HCL 50 MG TABLET 1-2 TABLET ORALLY EVERY 6 HRS PRN PAIN MDD=6 NOT-TAKING BACTRIM DS 800-160 TABLET 1 TABLET ORALLY EVERY 12 HOURS NOT-TAKING DOC-Q-LACE 100MG DAILY AT BEDTIME NOT-TAKING FLEXERIL 1 TAB ORAL TWICE A DAY NEEDED NOT-TAKING CIPRO 250 MG TABLET 1 TABLET ORALLY EVERY 12 HRS NOT-TAKING SENNA LAX 8.6 MG TABLET 1 TABLETS AT BEDTIME NEEDED ORALLY ONCE A DAY NOT-TAKING BACTRIM DS 800-160 MG TABLET 1 TABLET ORALLY EVERY 12 HOURS NOT-TAKING CUSTOM DO NOT USE TRAMADOL 50 MG TABLET ONE TAB ORALLY EVERY 4-6 HOURS PRN PAIN MEDICATION LIST REVIEWED AND RECONCILED WITH THE PATIENT PAST MEDICAL HISTORY HYPERTENSION HEART ATTACK HYPERCHOLESTEROLEMIA SHOULDER PAIN ALLERGIES AMOXICILLIN: RASH SURGICAL HISTORY BILALTERAL SHOULDER SURGERY CARDIAC STENTS X3 I & D SCROTAL MASS HOSPITALIZATION/MAJOR DIAGNOSTIC PROCEDURE SCROTAL MASS CARDIAC STENTS 2013 REVIEW OF SYSTEMS REVIEWED BY: PROVIDER: ADELINE HERRMANN . CONSTITUTIONAL: ANY CHANGE IN YOUR MEDICAL CONDITION? NO . CHILLS NO . FEVER NO . INFECTION: DO YOU HAVE NEW INFECTIONS? NO . DO YOU HAVE HISTORY OF MRSA? NO . MUSCULOSKELETAL: ANY NEW PATTERNS OF PAIN OR NUMBNESS? NO . GASTROENTEROLOGY: ANY NEW CHANGE IN BOWEL CONTROL? NO . GENITOURINARY: ANY NEW CHANGE IN BLADDER CONTROL? NO . IS THERE A CHANCE YOU COULD BE ? NO . HEMATOLOGY/LYMPH: DO YOU TAKE ANY BLOOD THINNERS? (FOR EXAMPLE- COUMADIN, PLAVIX, AGGRENOX, PLATEL, PRADAXA, OR XARELTO) YES, PLAVIX . WHEN WAS YOUR LAST DOSE? DATE: TIME: . NEUROLOGY: HAVE YOU FALLEN IN THE PAST 6 MONTHS? NO . ANY NEW EXTREMITY NUMBNESS OR WEAKNESS? NO . CARDIOLOGY: DO YOU HAVE A PACEMAKER OR DEFIBRILLATOR? NO . RESPIRATORY: HAVE YOU BEEN SICK IN THE PAST WEEK? NO . FEVER NO . FLU LIKE SYMPTOMS? NO . COUGH NO . INTEGUMENTARY: DO YOU HAVE ANY RASHES OR OPEN SORES? NO . ALLERGIC/IMMUNO: ARE YOU ALLERGIC TO SHELLFISH OR IV DYE? NO . ANY NEW ALLERGIES? NO . PSYCHIATRIC: DO YOU HAVE THOUGHTS OF HURTING YOURSELF OR SOMEONE ELSE? NO . ARE YOU ABUSED, NEGLECTED, OR IN AN UNSAFE ENVIRONMENT? NO . ENDOCRINOLOGY: ARE YOU DIABETIC? NO . OTHER: DO YOU NEED ANY PRESCRIPTIONS? YES, NUCYNTA, TRAMADOL . IF YES, PLEASE LIST: ____ . ANY NEW PROBLEMS WITH YOUR MEDICATIONS? NO . WHEN DID YOU LAST EAT? ____ . WHEN DID YOU LAST DRINK? ____ . WHAT DID YOU LAST DRINK? ____ . NAME OF PERSON DRIVING YOU HOME? ____ . DO YOU HAVE ANY OTHER QUESTIONS OR CONCERNS NO . VITAL SIGNS WT 191.6 LBS, HT 66 IN, BMI 30.92 INDEX, BP 136/89 MM HG, HR 73 /MIN, RR 18 /MIN, TEMP 97.8 F, OXYGEN SAT % 96%, NA INITIALS CM 0840, REVIEWED BY: EM. EXAMINATION GENERAL EXAMINATION: PSYCHALERT , ORIENTED X 3 , APPROPRIATE MOOD AND AFFECT . LUNGS:CLEAR TO AUSCULTATION BILATERALLY. HEART:HEART RATE REGULAR. JOINTS:BILATERAL, SHOULDER , PAIN WITH PALPATION AND RANGE OF MOTION. TRIGGERPOINTS OVER SHOULDERS AND AROUND SHOULDER INCISIONS. NUMBNESS REPORTED WITH RIGHT SHOULDER ELEVATION. SENIOR MANAGER MERGERS & ACQUISITIONS STRENGTH DECREASED RUE>LUE. NEUROLOGIC EXAM:DECREASED SENSATION ENTIRE RIGHT UPPER EXTREMITY, AND OVER C6-7 DERMATONE, C5 DERMATONE LEFT UPPER EXTREMITY. DTR'S 1+ RUE, TRACE TO ABSENT LEFT UPPER EXTREMITY.. ASSESSMENTS MYALGIA - M79.1 (PRIMARY) SHOULDER PAIN, BILATERAL - M25.511 CERVICAL RADICULOPATHY AT C6 - M54.12 CERVICAL DISC DISPLACEMENT - M50.20 CHRONIC PRESCRIPTION OPIATE USE - Z79.891 TREATMENT MYALGIA REFILL NUCYNTA TABLET, 75 MG, 1 TABLET, ORALLY, EVERY 6 HRS PRN PAIN MDD=2, 30 DAY(S), 60, REFILLS 0 REFILL TRAMADOL HCL TABLET, 50 MG, 1-2 TABLET, ORALLY, EVERY 6 HRS PRN PAIN MDD=6, 30 DAY(S), 180, REFILLS 3 NOTES: CONTINUE EXERCISES AND STRETCHES. CONTINUE CURRENT MEDS. CLINICAL NOTES: ISTOP REGISTRY REVIEWED AND DEMNOSTRATES COMPLLIANCE. BRINGS IN MEDICATIONS WHICH IS APPROPRIATE FOR WHAT WAS DISPENSED. RECENT URINE TOXICOLOGY REVIEWED. NO UNAUTHORIZED MEDICATIONS. NO ILLICIT SUBSTANCES AND PRESCRIBED MEDICATIONS WERE PRESENT. PROCEDURE CODES FA211 ESTABILISHED PATIENT [facility] CHARGE DISPOSITION & COMMUNICATION FOLLOW UP 3 MONTHS (REASON: SHOULDER PAIN) ELECTRONICALLY SIGNED BY KHOA MULLINS ON 02/11/2017 AT 04:10 PM EDT DISCLAIMER : THIS IS A VISIT SUMMARY EXTRACTED FROM THE [employer] CHART. IT IS NOT A COPY OF THE [employer] PROGRESS NOTE. MARI
== END ==
LOC: M PAIN 08:40
PROVIDERS: ATTEND Nurse Practitioner Family
DX: M79.1 Myalgia (principal); M25.511 Pain in right shoulder; M25.512 Pain in left shoulder; M54.12 Radiculopathy, cervical region; M50.20 Other cervical disc displacement, unspecified cervical region; I10 Essential (primary) hypertension; E78.00 Pure hypercholesterolemia, unspecified; I25.2 Old myocardial infarction; Z79.891 Long term (current) use of opiate analgesic; Z79.899 Other long term (current) drug therapy; Z79.82 Long term (current) use of aspirin; Z88.0 Allergy status to penicillin

== ENCOUNTER → 2017-03-01 | Outpatient (CLI) | payer BC ==
--- NOTE | 2017-03-01 08:57 | REP ---
Right wrist four views : There is no fracture or dislocation. Mineralization and joint spaces are normal. There are no calcifications or foreign bodies. Impression: Negative right wrist . Signed by Edu Sterling MD 03/01/2017 08:49 A
--- NOTE | 2017-03-01 08:58 | REP ---
Right hand four views : There is no fracture or dislocation. Mineralization and joint spaces are normal. There are no calcifications or foreign bodies. Impression: Negative right hand . Signed by Edu Sterling MD 03/01/2017 08:49 A
[2017-03-01 09:09] LABS: URIC ACID 5.7 MG/DL (3.5-7.2)
== END ==
LOC: M LAB 07:47
PROVIDERS: ATTEND Family Medicine
DX: M10.9 Gout, unspecified (principal)

== ENCOUNTER → 2017-05-07 | Outpatient (CLI) | payer BC | LOC: M PAIN 08:30 | PROVIDERS: ATTEND Nurse Practitioner Family | DX: M79.1 Myalgia (principal); M25.511 Pain in right shoulder; M54.12 Radiculopathy, cervical region; M50.20 Other cervical disc displacement, unspecified cervical region; I10 Essential (primary) hypertension; E78.00 Pure hypercholesterolemia, unspecified; I25.2 Old myocardial infarction; R07.89 Other chest pain; Z79.01 Long term (current) use of anticoagulants; Z79.82 Long term (current) use of aspirin; Z79.891 Long term (current) use of opiate analgesic; Z79.899 Other long term (current) drug therapy; Z88.0 Allergy status to penicillin; Z95.5 Presence of coronary angioplasty implant and graft ==

== ENCOUNTER → 2017-05-22 | Outpatient (CLI) | payer BC ==
[2017-05-22 07:16] LABS: MEAN CORPUSCULAR HEMOGLOBIN 30.4 pg (27.0-33.0); MEAN CORPUSCULAR HGB CONC 33.7 g/dl (32.0-36.5); MEAN CORPUSCULAR VOLUME 90.2 fl (80.0-96.0); PLATELET COUNT, AUTOMATED 293 10^3/uL (150-450); RED CELL DISTRIBUTION WIDTH 13.2 % (11.5-14.5); WHITE BLOOD COUNT 4.2 10^3/uL (4.0-10.0)
[2017-05-22 07:39] LABS: ALBUMIN 3.8 GM/DL (3.2-5.2); ALBUMIN/GLOBULIN RATIO 1.12 (1.00-1.93); ALKALINE PHOSPHATASE 83 U/L (45-117); ALT/SGPT 36 U/L (12-78); ANION GAP 10 MEQ/L (8-16); AST/SGOT 23 U/L (7-37); BILIRUBIN,TOTAL 0.6 MG/DL (0.2-1.0); BLOOD UREA NITROGEN 17 MG/DL (7-18); CALCIUM LEVEL 8.7 MG/DL (8.8-10.2); CARBON DIOXIDE LEVEL 27 MEQ/L (21-32); CHLORIDE LEVEL 103 MEQ/L (98-107); GLOMERULAR FILTRATION RATE > 60.0 (>49); GLUCOSE, FASTING 118 MG/DL (80-110); POTASSIUM SERUM 4.2 MEQ/L (3.5-5.1); SODIUM LEVEL 140 MEQ/L (136-145); TOTAL PROTEIN 7.2 GM/DL (6.4-8.2)
== END ==
LOC: M LAB 06:22
PROVIDERS: ATTEND Physician Assistant
DX: I25.10 Atherosclerotic heart disease of native coronary artery without angina pectoris (principal); E78.2 Mixed hyperlipidemia; I25.5 Ischemic cardiomyopathy

== ENCOUNTER → 2017-08-02 | Outpatient (CLI) | payer BC | LOC: M PAIN 15:00 | DX: M79.1 Myalgia (principal); M25.511 Pain in right shoulder; M54.12 Radiculopathy, cervical region; M50.20 Other cervical disc displacement, unspecified cervical region; I10 Essential (primary) hypertension; I25.2 Old myocardial infarction; Z79.82 Long term (current) use of aspirin; Z79.891 Long term (current) use of opiate analgesic; Z79.899 Other long term (current) drug therapy; Z88.0 Allergy status to penicillin; Z95.818 Presence of other cardiac implants and grafts | CPT/HCPCS: G0463 ==

== ENCOUNTER → 2017-08-22 | Outpatient (CLI) | payer BC ==
[2017-08-22 07:09] LABS: HEMATOCRIT 47.4 % (42.0-52.0); MEAN CORPUSCULAR HEMOGLOBIN 31.1 pg (27.0-33.0); MEAN CORPUSCULAR HGB CONC 33.8 g/dl (32.0-36.5); PLATELET COUNT, AUTOMATED 226 10^3/uL (150-450); RED BLOOD COUNT 5.15 10^6/uL (4.30-6.10); RED CELL DISTRIBUTION WIDTH 14.9 % (11.5-14.5)
[2017-08-22 07:20] LABS: INR 0.94; PROTHROMBIN TIME 12.7 SECONDS (12.4-14.5)
[2017-08-22 07:30] LABS: ESTIMATED AVERAGE GLUCOSE 157 MG/DL (60-110); HEMOGLOBIN A1c 7.1 %
[2017-08-22 07:45] LABS: ALBUMIN/GLOBULIN RATIO 1.25 (1.00-1.93); ALKALINE PHOSPHATASE 61 U/L (45-117); ALT/SGPT 39 U/L (12-78); ANION GAP 7 MEQ/L (8-16); AST/SGOT 16 U/L (7-37); BILIRUBIN,TOTAL 0.7 MG/DL (0.2-1.0); BLOOD UREA NITROGEN 23 MG/DL (7-18); CALCIUM LEVEL 8.7 MG/DL (8.8-10.2); CARBON DIOXIDE LEVEL 27 MEQ/L (21-32); CHLORIDE LEVEL 106 MEQ/L (98-107); CHOLESTEROL LEVEL 177 MG/DL (<200); CHOLESTEROL RISK RATIO 3.339 (<5); CREATININE FOR GFR 1.31 MG/DL (0.70-1.30); GLUCOSE, FASTING 125 MG/DL (70-100); HDL CHOLESTEROL 53 MG/DL (>40); LDL CHOLESTEROL 86.6 MG/DL (<100); NON-HDL-C 124 MG/DL; POTASSIUM SERUM 4.6 MEQ/L (3.5-5.1); SODIUM LEVEL 140 MEQ/L (136-145); TOTAL PROTEIN 7.2 GM/DL (6.4-8.2); TRIGLYCERIDES LEVEL 187 MG/DL (<150)
== END ==
LOC: M LAB 06:36
DX: Z01.818 Encounter for other preprocedural examination (principal); I10 Essential (primary) hypertension
CPT/HCPCS: 71046

== ENCOUNTER → 2017-11-27 | Outpatient (CLI) | payer BC | LOC: M PAIN 08:30 | DX: M79.1 Myalgia (principal); M25.511 Pain in right shoulder; I10 Essential (primary) hypertension; M96.1 Postlaminectomy syndrome, not elsewhere classified; K59.03 Drug induced constipation; E78.00 Pure hypercholesterolemia, unspecified; Z79.01 Long term (current) use of anticoagulants; Z79.82 Long term (current) use of aspirin; Z79.891 Long term (current) use of opiate analgesic; Z79.899 Other long term (current) drug therapy; Z88.0 Allergy status to penicillin | CPT/HCPCS: G0463 ==

== ENCOUNTER → 2018-01-29 | Outpatient (CLI) | payer BC | LOC: M PAIN 08:30 | DX: M79.1 Myalgia (principal); M25.511 Pain in right shoulder; M96.1 Postlaminectomy syndrome, not elsewhere classified; K59.03 Drug induced constipation; I10 Essential (primary) hypertension; E78.00 Pure hypercholesterolemia, unspecified; M19.90 Unspecified osteoarthritis, unspecified site; Z79.82 Long term (current) use of aspirin; Z79.01 Long term (current) use of anticoagulants; Z79.891 Long term (current) use of opiate analgesic; Z79.899 Other long term (current) drug therapy; Z88.1 Allergy status to other antibiotic agents; Z86.79 Personal history of other diseases of the circulatory system | CPT/HCPCS: G0463 ==

== ENCOUNTER → 2018-02-28 | Outpatient (CLI) | payer BC ==
[2018-02-28 07:33] LABS: HEMATOCRIT 42.1 % (42.0-52.0); HEMOGLOBIN 14.2 g/dl (13.5-17.5); MEAN CORPUSCULAR HEMOGLOBIN 30.5 pg (27.0-33.0); MEAN CORPUSCULAR HGB CONC 33.7 g/dl (32.0-36.5); MEAN CORPUSCULAR VOLUME 90.3 fl (80.0-96.0); PLATELET COUNT, AUTOMATED 259 10^3/uL (150-450); RED BLOOD COUNT 4.66 10^6/uL (4.30-6.10); RED CELL DISTRIBUTION WIDTH 12.5 % (11.5-14.5); WHITE BLOOD COUNT 3.9 10^3/uL (4.0-10.0)
[2018-02-28 08:15] LABS: ALBUMIN 3.8 GM/DL (3.2-5.2); ALBUMIN/GLOBULIN RATIO 1.19 (1.00-1.93); ALKALINE PHOSPHATASE 71 U/L (45-117); ALT/SGPT 38 U/L (12-78); ANION GAP 9 MEQ/L (8-16); AST/SGOT 23 U/L (7-37); BILIRUBIN,TOTAL 0.5 MG/DL (0.2-1.0); BLOOD UREA NITROGEN 18 MG/DL (7-18); CALCIUM LEVEL 8.5 MG/DL (8.8-10.2); CARBON DIOXIDE LEVEL 26 MEQ/L (21-32); CHLORIDE LEVEL 105 MEQ/L (98-107); CHOLESTEROL LEVEL 163 MG/DL (<200); CHOLESTEROL RISK RATIO 4.657 (<5); CREATININE FOR GFR 1.07 MG/DL (0.70-1.30); GLOMERULAR FILTRATION RATE > 60.0 (>49); GLUCOSE, FASTING 127 MG/DL (70-100); HDL CHOLESTEROL 35 MG/DL (>40); LDL CHOLESTEROL 55 MG/DL (<100); NON-HDL-C 128 MG/DL; POTASSIUM SERUM 4.1 MEQ/L (3.5-5.1); SODIUM LEVEL 140 MEQ/L (136-145); TRIGLYCERIDES LEVEL 363 MG/DL (<150)
== END ==
LOC: M LAB 06:31
DX: I25.10 Atherosclerotic heart disease of native coronary artery without angina pectoris (principal); E78.2 Mixed hyperlipidemia; I25.5 Ischemic cardiomyopathy
CPT/HCPCS: 80053

== ENCOUNTER → 2018-03-18 | Outpatient (CLI) | payer BC ==
[~2018-03-18] MED LIST changes: -ACET50TAOT PO; -ALDA25TA2 PO; -ASPI325T PO; -ASPI325T28 PO; -BACT800T5 PO; -BAYE325T12 PO; -CARV3.12 PO; -CLEO300C2 PO; -CLOP75TA2 PO; -CORE25TA PO; -CRES20TA PO; -CRES5TAB PO; -CYCL10TA PO; -DOCU100C16 PO; -DOCU10CA PO; +E-Z-GAS II EFFERVESCENT PACKET (SODIUM BICARB./CITRIC ACID/SIMETHICONE) As Ordered; +E-Z-HD 98% w/w 340GM SUSP BTL As Ordered; +E-Z-PAQUE 96% w/w SUSP 176GM BTL As Ordered; -FLAG500T PO; -FLOM5CAP PO; -ISOS30TA4 PO; -LEVO750T13 PO; -LISI-542 PO; -LISI5TAB PO; -MAGN400T PO; -MAGN400T2 PO; -METH1TAB40 PO; -MIRA255PW PO; -MOM30SS PO; -MORP15TASA PO; -MULTTAB4 PO; -NITR4TASL SL; -NORCOTAB PO; -NUCY75TA3 PO; -OXYC5TAB2 PO; -OYSCTAB PO; -PANT40TA2 PO; -PERC4TAB PO; -SENN8.6C PO; -SENO8.6T9 PO; -SPIR25TA2 PO; -TEST1INJ3 IM; -TEST200I14 IM; -TRAM50TA2 PO; -ULTR50TA PO; -VITA100066 PO; -VITA1CAP2 PO; -VITMTA PO
== END ==
LOC: M RAD 08:24
DX: R13.13 Dysphagia, pharyngeal phase (principal)
CPT/HCPCS: 74220

== ENCOUNTER 2018-03-29 12:43 | Emergency (ER) | payer BC ==
[2018-03-29 14:36] LABS: BASO % 0.3 % (0.0-1.0); EOS # 0.2 10^3/uL (0.0-0.50); EOS % 2.1 % (0.0-3.0); HEMATOCRIT 40.3 % (42.0-52.0); HEMOGLOBIN 13.3 g/dl (13.5-17.5); IMMATURE GRANULOCYTE % 0.4 % (0-3.0); LYMPH # 1.2 10^3/uL (1.5-4.5); MEAN CORPUSCULAR HEMOGLOBIN 30.8 pg (27.0-33.0); MEAN CORPUSCULAR VOLUME 93.3 fl (80.0-96.0); MONO % 13.8 % (0.0-5.0); NEUTROPHILS # 4.9 10^3/uL (1.8-7.7); NEUTROPHILS % 67.4 % (36.0-66.0); PLATELET COUNT, AUTOMATED 235 10^3/uL (150-450); RED BLOOD COUNT 4.32 10^6/uL (4.30-6.10); RED CELL DISTRIBUTION WIDTH 12.5 % (11.5-14.5); WHITE BLOOD COUNT 7.3 10^3/uL (4.0-10.0)
[2018-03-29] MEDS: dexameTHASONE 20 MG/5 ML VIAL (J1100) IV (14:42)
[2018-03-29] MEDS: NS 1,000 ML IV (14:43)
[2018-03-29] MEDS: fentaNYL 100 MCG/2 ML INJECTION (J3010) IM (14:47)
[2018-03-29 15:01] LABS: CONTROL LINE MONO INT CTR LINE PRESENT; MONO SCRN NEGATIVE (NEGATIVE)
[2018-03-29 15:07] LABS: ERYTHROCYTE SEDIMENTATION RATE 56 mm/hr (0-20)
[2018-03-29 15:15] LABS: ANION GAP 5 MEQ/L (8-16); BLOOD UREA NITROGEN 15 MG/DL (7-18); C REACTIVE PROTEIN QUANTITATIV 9.27 MG/DL (0.00-0.30); CALCIUM LEVEL 8.6 MG/DL (8.8-10.2); CARBON DIOXIDE LEVEL 30 MEQ/L (21-32); CHLORIDE LEVEL 103 MEQ/L (98-107); CREATININE FOR GFR 0.94 MG/DL (0.70-1.30); FREE THYROXINE INDEX 2.4 % (1.4-3.8); GLOMERULAR FILTRATION RATE > 60.0 (>49); GLUCOSE, FASTING 111 MG/DL (70-100); POTASSIUM SERUM 4.4 MEQ/L (3.5-5.1); SODIUM LEVEL 138 MEQ/L (136-145); T UPTAKE 30 % (33-40)
[2018-03-29] MEDS ORDERED: ISOVUE-370 76% 100ML VIAL (Q9967) As Ordered (15:17)
== END 2018-03-29 16:55 | disposition home or self-care (01) ==
LOC: M ED 12:43
DX: R13.10 Dysphagia, unspecified (principal); I25.10 Atherosclerotic heart disease of native coronary artery without angina pectoris; E11.9 Type 2 diabetes mellitus without complications; I11.9 Hypertensive heart disease without heart failure; I25.2 Old myocardial infarction; Z95.5 Presence of coronary angioplasty implant and graft; Z87.891 Personal history of nicotine dependence; Z88.0 Allergy status to penicillin; Z88.8 Allergy status to other drugs, medicaments and biological substances; Z79.899 Other long term (current) drug therapy; Z79.02 Long term (current) use of antithrombotics/antiplatelets; Z79.82 Long term (current) use of aspirin
CPT/HCPCS: J1100

== ENCOUNTER → 2018-04-02 | Outpatient (CLI) | payer BC | LOC: M PAIN 08:30 | DX: M79.18 Myalgia, other site (principal); M25.511 Pain in right shoulder; M96.1 Postlaminectomy syndrome, not elsewhere classified; K59.03 Drug induced constipation; I10 Essential (primary) hypertension; E78.00 Pure hypercholesterolemia, unspecified; M19.90 Unspecified osteoarthritis, unspecified site; Z79.01 Long term (current) use of anticoagulants; Z79.82 Long term (current) use of aspirin; Z79.891 Long term (current) use of opiate analgesic; Z79.899 Other long term (current) drug therapy; Z88.1 Allergy status to other antibiotic agents; Z86.79 Personal history of other diseases of the circulatory system | CPT/HCPCS: G0463 ==

== ENCOUNTER 2018-04-05 08:12 | Emergency (ER) | payer BC ==
[2018-04-05 09:13] LABS: BASO % 0.4 % (0.0-1.0); EOS # 0.1 10^3/uL (0.0-0.50); EOS % 0.8 % (0.0-3.0); HEMATOCRIT 41.6 % (42.0-52.0); HEMOGLOBIN 13.8 g/dl (13.5-17.5); IMMATURE GRANULOCYTE % 3.6 % (0-3.0); LYMPH # 1.2 10^3/uL (1.5-4.5); LYMPH % 14.8 % (24.0-44.0); MEAN CORPUSCULAR HEMOGLOBIN 30.6 pg (27.0-33.0); MEAN CORPUSCULAR HGB CONC 33.2 g/dl (32.0-36.5); MEAN CORPUSCULAR VOLUME 92.2 fl (80.0-96.0); MONO # 0.6 10^3/uL (0.0-0.8); MONO % 8.1 % (0.0-5.0); NEUTROPHILS # 5.6 10^3/uL (1.8-7.7); NEUTROPHILS % 72.3 % (36.0-66.0); PLATELET COUNT, AUTOMATED 353 10^3/uL (150-450); RED BLOOD COUNT 4.51 10^6/uL (4.30-6.10); RED CELL DISTRIBUTION WIDTH 12.8 % (11.5-14.5); WHITE BLOOD COUNT 7.8 10^3/uL (4.0-10.0)
[2018-04-05 09:24] LABS: INR 0.96; PROTHROMBIN TIME 12.9 SECONDS (12.1-14.4)
[2018-04-05 09:49] LABS: ERYTHROCYTE SEDIMENTATION RATE 9 mm/hr (0-20)
[2018-04-05 09:50] LABS: ALBUMIN 3.5 GM/DL (3.2-5.2); ALKALINE PHOSPHATASE 59 U/L (45-117); ALT/SGPT 47 U/L (12-78); ANION GAP 8 MEQ/L (8-16); AST/SGOT 14 U/L (7-37); BILIRUBIN,DIRECT 0.1 MG/DL (0.0-0.2); BILIRUBIN,TOTAL 0.4 MG/DL (0.2-1.0); BLOOD UREA NITROGEN 21 MG/DL (7-18); C REACTIVE PROTEIN QUANTITATIV < 0.30 MG/DL (0.00-0.30); CALCIUM LEVEL 8.8 MG/DL (8.8-10.2); CARBON DIOXIDE LEVEL 27 MEQ/L (21-32); CHLORIDE LEVEL 106 MEQ/L (98-107); CPK CREATINE PHOSPHOKINASE 52 U/L (39-308); CREATININE FOR GFR 0.98 MG/DL (0.70-1.30); GLOMERULAR FILTRATION RATE > 60.0 (>49); GLUCOSE, FASTING 133 MG/DL (70-100); LIPASE 111 U/L (73-393); MB/CK RELATIVE INDEX 3.46 (< OR =4); NT-PRO BNP 136 PG/ML (<125); POTASSIUM SERUM 4.5 MEQ/L (3.5-5.1); SODIUM LEVEL 141 MEQ/L (136-145); TOTAL PROTEIN 6.2 GM/DL (6.4-8.2); TROPONIN I < 0.02 NG/ML (< 0.10)
[2018-04-05] MEDS ORDERED: ISOVUE-370 76% 100ML VIAL (Q9967) As Ordered (10:20)
[2018-04-05 15:27] LABS: CPK CREATINE PHOSPHOKINASE 43 U/L (39-308); MB/CK RELATIVE INDEX 3.26 (< OR =4); TROPONIN I < 0.02 NG/ML (< 0.10)
== END 2018-04-05 16:00 | disposition home or self-care (01) ==
LOC: M ED 08:12
DX: R07.9 Chest pain, unspecified (principal); J06.9 Acute upper respiratory infection, unspecified; I10 Essential (primary) hypertension; E78.5 Hyperlipidemia, unspecified; Z95.5 Presence of coronary angioplasty implant and graft; Z87.891 Personal history of nicotine dependence; Z88.0 Allergy status to penicillin; Z88.8 Allergy status to other drugs, medicaments and biological substances; Z79.899 Other long term (current) drug therapy; Z79.52 Long term (current) use of systemic steroids; Z79.02 Long term (current) use of antithrombotics/antiplatelets; Z79.82 Long term (current) use of aspirin
CPT/HCPCS: Q9967

== ENCOUNTER 2018-05-10 07:59 | Day surgery (SDC) | payer BC ==
[~2018-05-10 07:59] MED LIST changes: -E-Z-GAS II EFFERVESCENT PACKET (SODIUM BICARB./CITRIC ACID/SIMETHICONE) As Ordered; -E-Z-HD 98% w/w 340GM SUSP BTL As Ordered; -E-Z-PAQUE 96% w/w SUSP 176GM BTL As Ordered; +PROPOFOL 200 MG/20 ML VIAL As Ordered
[2018-05-10] MEDS: NS 1,000 ML IV (08:37)
[2018-05-10] MEDS ORDERED: LIDOCAINE 2% INJ 100 MG/5 ML SDV (FOR ANES.) As Ordered (09:09)
[2018-05-10] MEDS ORDERED: fentaNYL 100 MCG/2 ML INJECTION (J3010) As Ordered (09:11)
[2018-05-10] MEDS ORDERED: PROPOFOL 200 MG/20 ML VIAL As Ordered (10:08)
== END 2018-05-10 11:59 | disposition home or self-care (01) ==
LOC: M OPP 07:59
DX: Z12.11 Encounter for screening for malignant neoplasm of colon (principal); D12.2 Benign neoplasm of ascending colon; K64.8 Other hemorrhoids; K20.8 Other esophagitis; I25.10 Atherosclerotic heart disease of native coronary artery without angina pectoris; I25.2 Old myocardial infarction; I10 Essential (primary) hypertension; E78.00 Pure hypercholesterolemia, unspecified; M19.90 Unspecified osteoarthritis, unspecified site; Z95.5 Presence of coronary angioplasty implant and graft; Z87.891 Personal history of nicotine dependence; Z79.899 Other long term (current) drug therapy; Z79.82 Long term (current) use of aspirin; Z79.01 Long term (current) use of anticoagulants; Z88.0 Allergy status to penicillin; Z88.8 Allergy status to other drugs, medicaments and biological substances; Z82.49 Family history of ischemic heart disease and other diseases of the circulatory system
CPT/HCPCS: 45380

== ENCOUNTER → 2018-07-03 | Outpatient (CLI) | payer BC ==
[~2018-07-03] MED LIST changes: +ACET500T15 PO; +ALDA25TA2 PO; +ASPI-222 PO; +ASPI325T PO; +BACT800T5 PO; +BAYE325T12 PO; +CARV3.12 PO; +CLEO300C2 PO; +CLOP75TA2 PO; +CORE25TA PO; +CRES20TA PO; +CRES5TAB PO; +CYCL10TA PO; +DOCU100C16 PO; +DOCU10CA PO; +FLAG500T PO; +FLOM0.4C39 PO; +ISOS30TA4 PO; +LEVO750T13 PO; +LISI-542 PO; +LISI5TAB PO; +MAGN400T PO; +MAGN400T2 PO; +METH1TAB40 PO; +MIRA255PW PO; +MOM30SS PO; +MORP15TASA PO; +MULTTAB4 PO; +NITR4TASL SL; +NORCOTAB PO; +NUCY75TA11 PO; +OXYC5TAB2 PO; +OYSCTAB PO; +PANT40TA2 PO; +PANT40TA3 PO; +PERC4TAB PO; +PERCOCET PO; +PRED10TA2 PO; +PRED20TA PO; -PROPOFOL 200 MG/20 ML VIAL As Ordered; +SENN8.6C PO; +SENN8.6T28 PO; +SENO8.6T9 PO; +SPIR-10 PO; +TEST1INJ3 IM; +TEST200I14 IM; +TRAM50TA2 PO; +ULTR50TA PO; +VITA100066 PO; +VITA1CAP2 PO; +VITMTA PO
--- NOTE | 2018-07-04 01:06 | ECWPNPC ---
PATIENT NAME: KAYLAN MCKOY : 1955 GENDER: MALE VISIT DATE: 07/03/2018 DISCHARGE DATE: 07/03/18 1042 VISIT LOCKED DATE TIME: PHYSICIAN: ANA OVIEDO RESOURCE: ANA OVIEDO REASON FOR APPOINTMENT 1. SW PT, NECK/SHOULDER PAIN HISTORY OF PRESENT ILLNESS HISTORY OF PRESENT ILLNESS: HERE FOR F/U OF CHRONIC NECK AND BILAT. SHOULDER PAIN.HISTORY OF CERVICAL SURGERY 2018 AND BILAT. SHOULDER REPLACEMENT.HAS CHRONIC INTERMITTENT ACHING AND SHARP PAIN.PAIN IS AGGEVATED BY LIFTING AND SHOVELING.CURENTLY USING NUCYNTA 75MG AT HS AND PEROCET 5/325 OR TRAMADOL DURING DAYTIME FOR PAIN.FINDS MEDIATION EFFECTIVE AT REDUCING PAIN AND KEEPING HIM COMFORTABLE.DENIES SIDE EFFECTS.CONTINUES TO WORK MEDICATION ASSISTANT.RATING PAIN VAS 6/10. PAIN THE PATIENT DESCRIBES THE PAIN... FALL RISK SCREENING: SCREENING :NO FALLS IN THE PAST YEAR CURRENT MEDICATIONS TAKING CARVEDILOL 3.125 MG TABLET 1 TABLET WITH FOOD ORALLY TWICE A DAY TAKING CRESTOR 20 MG TABLET 1 TABLET ORALLY ONCE A DAY TAKING SPIRONOLACTONE 25 MG TABLET 1/2 TABLET ORALLY ONCE A DAY TAKING PANTOPRAZOLE SODIUM 40 MG TABLET DELAYED RELEASE 1 TABLET ORALLY ONCE A DAY TAKING PLAVIX 75 MG TABLET 1 TABLET ORALLY ONCE A DAY TAKING LISINOPRIL 5 MG TABLET 1 TABLET ORALLY TWICE A DAY TAKING MAGNESIUM 400 MG CAPSULE ORALLY TWICE A DAY TAKING VITAMIN D 2000 UNIT TABLET ORALLY BID TAKING MULTIPLE VITAMIN TABLET 1 TABLET ORALLY ONCE A DAY TAKING ASPIRIN 325 MG TABLET 1 TABLET ORALLY ONCE A DAY TAKING NITROGLYCERIN 0.4 MG TABLET SUBLINGUAL SUBLINGUAL DIRECTED FOR CHEST DISCOMFORT TAKING SENNA PLUS 8.6-50 MG TABLET 1 TABLET ORALLY ONCE A DAY TAKING TAMSULOSIN HCL 0.4 MG CAPSULE EXTENDED RELEASE ORALLY DAILY TAKING CYCLOBENZAPRINE HCL 10 MG TABLET 1 TABLET ORALLY BID TAKING COLACE 100 MG CAPSULE 1 CAPSULE ORALLY BID TAKING NUCYNTA 75 MG TABLET 1 TABLET ORALLY EVERY 6 HRS PRN PAIN MDD=2 TAKING OXYCODONE-ACETAMINOPHEN 5-325 MG TABLET 1 TABLET NEEDED ORALLY MDD=2 TAKING TRAMADOL HCL 50 MG TABLET 1 TABLET NEEDED ORALLY EVERY 6 HRS NOT-TAKING ISOSORBIDE MONONITRATE ER 30 MG TABLET EXTENDED RELEASE 24 HOUR 1 TABLET ORALLY ONCE A DAY NOT-TAKING TESTOSTERONE CYPIONATE 100 MG/ML SOLUTION 1 ML INTRAMUSCULAR Q 2 WEEKS NOT-TAKING MOVANTIK 25 MG TABLET 1 TABLET IN THE MORNING ORALLY ONCE A DAY DISCONTINUED PREDNISONE 5 MG TABLET 2 1/2 TABLETS ORALLY ONCE A DAY, NOTES: ON TAPERIONG DOSE NOW DISCONTINUED PLAQUENIL 200 MG TABLET 1 TABLET WITH FOOD OR MILK ORALLY ONCE A DAY DISCONTINUED CIPRO 500 MG TABLET 1 TABLET ORALLY EVERY 12 HRS DISCONTINUED BENZONATATE 100 MG CAPSULE 1 CAPSULE NEEDED ORALLY THREE TIMES A DAY MEDICATION LIST REVIEWED AND RECONCILED WITH THE PATIENT PAST MEDICAL HISTORY HYPERTENSION HEART ATTACK HYPERCHOLESTEROLEMIA SHOULDER PAIN-BILATERAL ARTHRITS NECK PAIN ALLERGIES AMOXICILLIN: RASH METHOTREXATE: HEADACHES SURGICAL HISTORY BILALTERAL SHOULDER SURGERY CARDIAC STENTS X3 I & D SCROTAL MASS SPINAL FUSION C4,C5,C6 08/2017 FAMILY HISTORY FATHER: , DIAGNOSED WITH STROKE MOTHER: , DIAGNOSED WITH DIABETES, HYPERTENSION, HEART DISEASE 2 SON(S) , 2 DAUGHTER(S) . MOM-HYPERPERLIPEDEMIAOLDEST DAUGHTER-DIABETIC,HTN, HPERLIPEMEDIA. SOCIAL HISTORY GENERAL: TOBACCO USE ARE YOU A:NONSMOKER ALCOHOL SCREENING DID YOU HAVE A DRINK CONTAINING ALCOHOL IN THE PAST YEAR?NO POINTS0 INTERPRETATIONNEGATIVE RECREATIONAL DRUG USE DRUG USE?NO CAFFEINE CAFFEINE USE?YES HOW OFTEN AND HOW MUCH? 3CUPS COFFEE/DAY ANABAPTIST [id number] [employer]ANG[employer] LANGUAGES SPOKEN:[place]NADI[place] EDUCATION LEVEL OF EDUCATION:[employer] LEARNING BARRIERS / SPECIAL NEEDS CHANGE FROM LAST VISIT?NO BARRIERS TO LEARNING?NO HEARING IMPAIRED?NO VISION IMPAIRED?YES COGNITIVELY IMPAIRED?NO :CORRECTIVE LENSES READINESS TO LEARN?NO LEARNING PREFERENCES?NO LEARNING CAPABILITIES PRESENT?YES EMOTIONAL BARRIERS?NO SPECIAL DEVICES?NO BOWLING BALL PATCHER NEEDED?NO DOMESTIC VIOLENCE DO YOU FEEL SAFE IN YOUR ENVIRONMENT?YES NEW PATIENT PAIN DIARY TODAY'S VISITNOTES PAIN CLINIC PFS, CLERGY, PUBLIC HEALTH REFERRALS PFS REFERRAL NEEDED?NO CLERGY REFERRAL NEEDED?NO PUBLIC HEALTH REFERRAL NEEDED?NO WAS THE PROVIDER NOTIFIED OF ANY PERTINENT INFO?NO N/A HAS THE PATIENT BEEN EDUCATED REGARDING HIS/HER PLAN OF CARE?YES HAS THE PATIENT BEEN EDUCATED REGARDING PAIN, THE RISK FOR PAIN, THE IMPORTANCE OF EFFECTIVE PAIN MANAGEMENT, AND THE PAIN ASSESSMENT PROCESS?YES ADVANCE DIRECTIVE ADVANCE DIRECTIVE DISCUSSED WITH PATIENT:YES CRISTHIAN [phone](C) 04/02/18904 REVIEWED WITH PT. RILEY WITH PT [facility]. HOSPITALIZATION/MAJOR DIAGNOSTIC PROCEDURE SCROTAL MASS CARDIAC STENTS 2013 NECK FUSION 08/2017 REVIEW OF SYSTEMS REVIEWED BY: PROVIDER: ANA HERRMANN . CONSTITUTIONAL: ANY CHANGE IN YOUR MEDICAL CONDITION? NO . CHILLS NO . FEVER NO . INFECTION: DO YOU HAVE NEW INFECTIONS? NO . DO YOU HAVE HISTORY OF MRSA? NO . MUSCULOSKELETAL: ANY NEW PATTERNS OF PAIN OR NUMBNESS? NO . GASTROENTEROLOGY: ANY NEW CHANGE IN BOWEL CONTROL? NO . GENITOURINARY: ANY NEW CHANGE IN BLADDER CONTROL? NO . IS THERE A CHANCE YOU COULD BE ? NO . HEMATOLOGY/LYMPH: DO YOU TAKE ANY BLOOD THINNERS? (FOR EXAMPLE- COUMADIN, PLAVIX, AGGRENOX, PLATEL, PRADAXA, OR XARELTO) YES, PLAVIX LAST TAKEN 07/03/18 0630 . WHEN WAS YOUR LAST DOSE? DATE: TIME: . NEUROLOGY: HAVE YOU FALLEN IN THE PAST 6 MONTHS? NO . ANY NEW EXTREMITY NUMBNESS OR WEAKNESS? NO . CARDIOLOGY: DO YOU HAVE A PACEMAKER OR DEFIBRILLATOR? NO . RESPIRATORY: HAVE YOU BEEN SICK IN THE PAST WEEK? NO . FEVER NO . FLU LIKE SYMPTOMS? NO . COUGH NO . INTEGUMENTARY: DO YOU HAVE ANY RASHES OR OPEN SORES? NO . ALLERGIC/IMMUNO: ARE YOU ALLERGIC TO SHELLFISH OR IV DYE? NO . ANY NEW ALLERGIES? NO . PSYCHIATRIC: DO YOU HAVE THOUGHTS OF HURTING YOURSELF OR SOMEONE ELSE? NO . ARE YOU ABUSED, NEGLECTED, OR IN AN UNSAFE ENVIRONMENT? NO . ENDOCRINOLOGY: ARE YOU DIABETIC? NO . OTHER: DO YOU NEED ANY PRESCRIPTIONS? YES, NUCYNTA, TRAMADOL . IF YES, PLEASE LIST: ____ . ANY NEW PROBLEMS WITH YOUR MEDICATIONS? NO . WHEN DID YOU LAST EAT? ____ . WHEN DID YOU LAST DRINK? ____ . WHAT DID YOU LAST DRINK? ____ . NAME OF PERSON DRIVING YOU HOME? ____ . DO YOU HAVE ANY OTHER QUESTIONS OR CONCERNS NO . VITAL SIGNS WT 202.6 LBS, HT 66 IN, BMI 32.70 INDEX, BP 157/87 MM HG, HR 76 /MIN, RR 18 /MIN, TEMP 97.0 F, OXYGEN SAT % 97%, NA INITIALS SC 09:47. EXAMINATION GENERAL EXAMINATION: GENERAL APPEARANCE:AWAKE,ALERT ,PLEAASANT . PSYCHAFFECT NORMAL . LUNGS:LUNG COLLINS ARE CLEAR TO AUSCULTATION BILATERALLY. GOOD MOVEMENT OF AIR . HEART:S1, S2 IN A REGULAR RATE AND RHYTHM. NO SIGNIFICANT MURMURS, RUBS OR GALLOPS NOTED . CERVICALTENDER OVER CERVICAL SPINE AND CERVICAL PARASPINALS.. ASSESSMENTS MYALGIA - M79.1 (PRIMARY) SHOULDER PAIN, BILATERAL - M25.511 CERVICALGIA - M54.2 CHRONIC PRESCRIPTION OPIATE USE - Z79.891 TREATMENT MYALGIA REFILL NUCYNTA TABLET, 75 MG, 1 TABLET, ORALLY, EVERY 6 HRS PRN PAIN MDD=2, 30 DAY(S), 60, REFILLS 0 CONTINUE COLACE CAPSULE, 100 MG, 1 CAPSULE, ORALLY, BID CONTINUE CYCLOBENZAPRINE HCL TABLET, 10 MG, 1 TABLET, ORALLY, BID CONTINUE OXYCODONE-ACETAMINOPHEN TABLET, 5-325 MG, 1 TABLET NEEDED, ORALLY, MDD=2 START TRAMADOL HCL TABLET, 50 MG, 1 TABLET NEEDED, ORALLY, EVERY 6 HRS PRN MDD4, 30 DAY(S), 120, REFILLS 2 NOTES: ISTOP REGISTRY REVIEWED AND DEMONSTRATES COMPLLIANCE. (REF #[id number] ) BRINGS IN MEDICATIONS WHICH IS APPROPRIATE FOR WHAT WAS DISPENSED. RECENT URINE TOXICOLOGY REVIEWED. NO UNAUTHORIZED MEDICATIONS. NO ILLICIT SUBSTANCES AND PRESCRIBED MEDICATIONS WERE PRESENT. URINE TOX TODAY, RISKS AND BENEFITS OF NARCOTIC/OPIOD MEDICATIONS WERE REVIEWED WITH PATIENT - THIS INCLUDES BUT IS NOT LIMITED TO RISK OF DEPENDANCE/DEVELOPMENT OF ADDICTION, MOOD DISTURBANCE AND DEPRESSION, OSTEOPOROSIS, HORMONAL AND LABIDAL CHANGES, RESPIRATORY DEPRESSION AND . PATIENT IS ADVISED NOT TO DRIVE OR DRINK ALCOHOL WHILE ON THESE MEDICATIONSCONTINUE TRYING TO REPLACE OXYCODONE WITH TRAMADOL. DISPOSITION & COMMUNICATION FOLLOW UP 3 MONTHS ELECTRONICALLY SIGNED BY ALIZE MENEZES ON 07/03/2018 AT 10:42 AM EST DISCLAIMER : THIS IS A VISIT SUMMARY EXTRACTED FROM THE [employer] CHART. IT IS NOT A COPY OF THE [employer] PROGRESS NOTE. ALIZED
== END ==
LOC: M PAIN 09:30
PROVIDERS: ATTEND Nurse Practitioner Family
DX: M79.10 Myalgia, unspecified site (principal); M25.511 Pain in right shoulder; M54.2 Cervicalgia; I10 Essential (primary) hypertension; E78.00 Pure hypercholesterolemia, unspecified; M19.90 Unspecified osteoarthritis, unspecified site; Z79.01 Long term (current) use of anticoagulants; Z79.82 Long term (current) use of aspirin; Z79.891 Long term (current) use of opiate analgesic; Z79.899 Other long term (current) drug therapy; Z88.1 Allergy status to other antibiotic agents; Z88.8 Allergy status to other drugs, medicaments and biological substances; Z86.79 Personal history of other diseases of the circulatory system

== ENCOUNTER → 2018-08-19 | Outpatient (CLI) | payer BC ==
[2018-08-19 11:00] LABS: BASO % 0.9 % (0.0-1.0); EOS # 0.1 10^3/uL (0.0-0.50); EOS % 3.2 % (0.0-3.0); HEMATOCRIT 43.4 % (42.0-52.0); HEMOGLOBIN 14.5 g/dl (13.5-17.5); LYMPH # 1.4 10^3/uL (1.5-4.5); LYMPH % 41.9 % (24.0-44.0); MEAN CORPUSCULAR HEMOGLOBIN 30.3 pg (27.0-33.0); MEAN CORPUSCULAR HGB CONC 33.4 g/dl (32.0-36.5); MEAN CORPUSCULAR VOLUME 90.8 fl (80.0-96.0); MONO # 0.4 10^3/uL (0.0-0.8); MONO % 12.5 % (0.0-5.0); NEUTROPHILS # 1.4 10^3/uL (1.8-7.7); NEUTROPHILS % 41.5 % (36.0-66.0); PLATELET COUNT, AUTOMATED 238 10^3/uL (150-450); RED BLOOD COUNT 4.78 10^6/uL (4.30-6.10); WHITE BLOOD COUNT 3.4 10^3/uL (4.0-10.0)
[2018-08-19 11:27] LABS: ERYTHROCYTE SEDIMENTATION RATE 9 mm/hr (0-20)
[2018-08-19 11:35] LABS: C REACTIVE PROTEIN QUANTITATIV < 0.30 MG/DL (0.00-0.30); RHEUMATOID FACTOR QUANT < 10.0 IU/ML (<15.0); URIC ACID 6.2 MG/DL (3.5-7.2)
--- NOTE | 2018-08-19 12:21 | REP ---
BILATERAL HANDS, EIGHT VIEWS: HISTORY: Polyarthritis. RIGHT HAND: There is no acute fracture or dislocation. There is narrowing of the interphalangeal joint space of the first digit with associated osteophyte formation. A subchondral cyst is present in the head of the second metacarpal. There is slight irregularity of the head of the third metacarpal. The remaining joint spaces are normal in appearance. IMPRESSION: Degenerative change as described above. LEFT HAND: There is no acute or dislocation. There is narrowing of the first carpometacarpal joint space. The remaining joint spaces are normal in appearance. IMPRESSION: Degenerative change as described above. Electronically Signed by Amaury Barajas MD 08/19/2018 12:27 P
--- NOTE | 2018-08-20 02:22 | REP ---
Clinical: Polyarthritis and left hip pain. Technique: Five views of the bilateral sacroiliac joints. Findings: The bilateral sacroiliac joints are symmetric and normal. No significant arthritic degenerative changes are appreciated. Osseous structures are intact. Impression: Normal bilateral sacroiliac joints. Electronically Signed by Alpesh Bello MD 08/20/2018 02:14 A
--- NOTE | 2018-08-20 02:24 | REP ---
Clinical: Left hip pain. Technique: Neutral and frog lateral views of the left hip. Findings: Mild arthritic degenerative changes include increased sclerosis to the acetabulum with associated joint space narrowing and subtle spurring along the acetabular roof and along the femoral head/neck junction. No subchondral erosive or cystic changes. No periarticular calcifications. Impression: Mild arthritic degenerative changes. Electronically Signed by Alpesh Bello MD 08/20/2018 02:16 A
--- NOTE | 2018-08-20 02:41 | REP ---
Clinical: Arthritis and hip pain. Technique: AP, lateral, coned-down views of the lumbosacral spine. Findings: There is no evidence for acute fracture / compression injury or subluxation. Moderate multilevel degenerative changes include endplate sclerosis, disc space narrowing, marginal spurring and hypertrophic facet changes. Impression: Moderate multilevel degenerative changes. Electronically Signed by Alpesh Bello MD 08/20/2018 02:32 A
[2018-08-22 00:06] LABS: ANA (HEP2) Negative (.); CYCLIC CITRULLINATED PEPTIDE 3 units (0-19)
== END ==
LOC: M LAB 10:27
PROVIDERS: ATTEND Internal Medicine Rheumatology
DX: M13.0 Polyarthritis, unspecified (principal); M25.552 Pain in left hip

== ENCOUNTER → 2018-09-12 | Outpatient (CLI) | payer BC ==
[~2018-09-12] MED LIST changes: -CRES20TA PO; +CRES20TA2 PO; +HYDR-3715 PO; -MIRA255PW PO; -NORCOTAB PO; -PERC4TAB PO; +POLY1POW4 PO; +VITA-183 PO; -VITA1CAP2 PO
--- NOTE | 2018-09-12 11:26 | REP ---
LEFT KNEE, FIVE VIEWS: HISTORY: Knee pain. There is no acute fracture or dislocation. There minimal narrowing of the medial knee joint space. The lateral knee joint space and patellofemoral joint space are normal in appearance. IMPRESSION: Degenerative change as described above. Electronically Signed by Amaury Barajas MD 09/12/2018 11:28 A
== END ==
LOC: M RAD 08:53
PROVIDERS: ATTEND Family Medicine
DX: M17.12 Unilateral primary osteoarthritis, left knee (principal)

== ENCOUNTER → 2018-10-01 | Outpatient (CLI) | payer BC ==
--- NOTE | 2018-10-03 01:39 | ECWPNPC ---
PATIENT NAME: KAYLAN MCKOY : 1955 GENDER: MALE VISIT DATE: 10/01/2018 DISCHARGE DATE: 10/01/18926 VISIT LOCKED DATE TIME: PHYSICIAN: LORE GREEN RESOURCE: LORE GREEN REASON FOR APPOINTMENT 1. NECK/SHOULDERS HISTORY OF PRESENT ILLNESS HISTORY OF PRESENT ILLNESS: PAIN THE PATIENT DESCRIBES THE PAINDURING THE LAST MONTH 63 YR OLD MALE HERE FOR ROUTINE F/U OF RNECK AND SHOULDER PAIN. HIS VAS 4/10.HE IS TRYING TO DECREASE HIS PERCOCET AND USES IT 3-4 TIMES A WEEK. HE SAYS SHE DOES NOT NEED ANY REFILLS TODAY. FALL RISK SCREENING: SCREENING :NO FALLS REPORTED IN THE LAST YEAR CURRENT MEDICATIONS TAKING COLACE 100 MG CAPSULE 1 CAPSULE ORALLY BID TAKING CYCLOBENZAPRINE HCL 10 MG TABLET 1 TABLET ORALLY BID TAKING CARVEDILOL 3.125 MG TABLET 1 TABLET WITH FOOD ORALLY TWICE A DAY TAKING CRESTOR 20 MG TABLET 1 TABLET ORALLY ONCE A DAY TAKING SPIRONOLACTONE 25 MG TABLET 1/2 TABLET ORALLY ONCE A DAY TAKING PANTOPRAZOLE SODIUM 40 MG TABLET DELAYED RELEASE 1 TABLET ORALLY ONCE A DAY TAKING PLAVIX 75 MG TABLET 1 TABLET ORALLY ONCE A DAY TAKING LISINOPRIL 5 MG TABLET 1 TABLET ORALLY TWICE A DAY TAKING MAGNESIUM 400 MG CAPSULE ORALLY TWICE A DAY TAKING VITAMIN D 2000 UNIT TABLET ORALLY BID TAKING MULTIPLE VITAMIN TABLET 1 TABLET ORALLY ONCE A DAY TAKING ASPIRIN 325 MG TABLET 1 TABLET ORALLY ONCE A DAY TAKING NITROGLYCERIN 0.4 MG TABLET SUBLINGUAL SUBLINGUAL DIRECTED FOR CHEST DISCOMFORT TAKING SENNA PLUS 8.6-50 MG TABLET 1 TABLET ORALLY ONCE A DAY TAKING TRAMADOL HCL 50 MG TABLET 1 TABLET NEEDED ORALLY EVERY 6 HRS PRN MDD4 TAKING OXYCODONE-ACETAMINOPHEN 5-325 MG TABLET 1 TABLET NEEDED ORALLY MDD=2 TAKING NUCYNTA 75 MG TABLET 1 TABLET ORALLY EVERY 6 HRS PRN PAIN MDD=2 NOT-TAKING TAMSULOSIN HCL 0.4 MG CAPSULE EXTENDED RELEASE ORALLY DAILY NOT-TAKING ISOSORBIDE MONONITRATE ER 30 MG TABLET EXTENDED RELEASE 24 HOUR 1 TABLET ORALLY ONCE A DAY NOT-TAKING TESTOSTERONE CYPIONATE 100 MG/ML SOLUTION 1 ML INTRAMUSCULAR Q 2 WEEKS NOT-TAKING MOVANTIK 25 MG TABLET 1 TABLET IN THE MORNING ORALLY ONCE A DAY MEDICATION LIST REVIEWED AND RECONCILED WITH THE PATIENT PAST MEDICAL HISTORY HYPERTENSION HEART ATTACK HYPERCHOLESTEROLEMIA SHOULDER PAIN-BILATERAL ARTHRITS NECK PAIN ALLERGIES AMOXICILLIN: RASH METHOTREXATE: HEADACHES SURGICAL HISTORY BILALTERAL SHOULDER SURGERY CARDIAC STENTS X3 I & D SCROTAL MASS SPINAL FUSION C4,C5,C6 08/2017 FAMILY HISTORY FATHER: , DIAGNOSED WITH STROKE MOTHER: , DIABETES, HYPERTENSION, HEART DISEASE 2 SON(S) , 2 DAUGHTER(S) . MOM-HYPERPERLIPEDEMIA\\NOLDEST DAUGHTER-DIABETIC,HTN, HPERLIPEMEDIA\\NSISTER AND OLDER BROTHER- HEART DISEASE. SOCIAL HISTORY GENERAL: TOBACCO USE ARE YOU A:FORMER SMOKER HOW LONG HAS IT BEEN SINCE YOU LAST SMOKED?> 10 YEARS LATEX QUESTIONNAIRE LATEX ALLERGY : HAVE YOU EVER DEVELOPED ANY TYPE OF REACTION AFTER HANDLING LATEX PRODUCTS SUCH RUBBER GLOVES, CONDOMS, DIAPHRAGMS, BALLOONS, SOCKS, OR UNDERWEAR?NO LATEX ALLERGY : HAVE YOU EVER DEVELOPED ANY TYPE OF REACTION DURING OR AFTER DENTAL APPOINTMENT, VAGINAL/RECTAL EXAMINATION, SURGICAL PROCEDURE, OR ANY OTHER EXPOSURE?NO LATEX RISK : HAVE YOU EVER HAD ANY DIFFICULTY BREATHING OR HIVES AFTER EATING OR HANDLING ANY FRUITS, OR VEGETABLES; SUCH KIWI, BANANAS, STONE FRUITS, OR CHESTNUTSNO LATEX RISK : DO YOU HAVE A PREVIOUS PERSONAL HISTORY OF MORE THAN NINE SURGERIES, SPINA BIFIDA, OR REPEATED CATHERTIZATIONS? NO LATEX RISK : ARE YOU FREQUENTLY EXPOSED TO LATEX PRODUCTS IN YOUR OCCUPATION?NO DATE ASKED : 09/03/2018 ALCOHOL SCREENING DID YOU HAVE A DRINK CONTAINING ALCOHOL IN THE PAST YEAR?NO POINTS0 INTERPRETATIONNEGATIVE RECREATIONAL DRUG USE DRUG USE?NO CAFFEINE CAFFEINE USE?YES HOW OFTEN AND HOW MUCH? 3CUPS COFFEE/DAY ORIENTAL ORTHODOX [id number] TENRIISM LANGUAGE LANGUAGES SPOKEN:BANGLADESHI EDUCATION LEVEL OF EDUCATION:COLLEGE ASSOSSIATES LEARNING BARRIERS / SPECIAL NEEDS CHANGE FROM LAST VISIT?NO BARRIERS TO LEARNING?NO HEARING IMPAIRED?NO VISION IMPAIRED?YES :CORRECTIVE LENSES COGNITIVELY IMPAIRED?NO READINESS TO LEARN?NO LEARNING PREFERENCES?NO LEARNING CAPABILITIES PRESENT?YES EMOTIONAL BARRIERS?NO SPECIAL DEVICES?NO LOAN PROCESSOR NEEDED?NO DOMESTIC VIOLENCE DO YOU FEEL SAFE IN YOUR ENVIRONMENT?YES NEW PATIENT PAIN DIARY TODAY'S VISITNOTES PAIN CLINIC PFS, CLERGY, PUBLIC HEALTH REFERRALS PFS REFERRAL NEEDED?NO CLERGY REFERRAL NEEDED?NO PUBLIC HEALTH REFERRAL NEEDED?NO WAS THE PROVIDER NOTIFIED OF ANY PERTINENT INFO?NO N/A HAS THE PATIENT BEEN EDUCATED REGARDING HIS/HER PLAN OF CARE?YES HAS THE PATIENT BEEN EDUCATED REGARDING PAIN, THE RISK FOR PAIN, THE IMPORTANCE OF EFFECTIVE PAIN MANAGEMENT, AND THE PAIN ASSESSMENT PROCESS?YES ADVANCE DIRECTIVE ADVANCE DIRECTIVE DISCUSSED WITH PATIENT:YES HCP-[facility]ORE [phone](C) 04/02/18904 REVIEWED WITH PT. RITOD WITH PT 07/03/18 0958 BV. HOSPITALIZATION/MAJOR DIAGNOSTIC PROCEDURE SCROTAL MASS CARDIAC STENTS 2013 NECK FUSION 08/2017 REVIEW OF SYSTEMS REVIEWED BY: PROVIDER: CH . CONSTITUTIONAL: ANY CHANGE IN YOUR MEDICAL CONDITION? YES - LEFT HIP AND KNEE ARTHRITIS. STATES IS SUPPOSED TO BE HAVING AN MRI OF THE KNEE AND THEN TREATMENT. . CHILLS NO . FEVER NO . INFECTION: DO YOU HAVE NEW INFECTIONS? NO . DO YOU HAVE HISTORY OF MRSA? NO . MUSCULOSKELETAL: ANY NEW PATTERNS OF PAIN OR NUMBNESS? NO . GASTROENTEROLOGY: ANY NEW CHANGE IN BOWEL CONTROL? NO . GENITOURINARY: ANY NEW CHANGE IN BLADDER CONTROL? NO . IS THERE A CHANCE YOU COULD BE ? NO . HEMATOLOGY/LYMPH: DO YOU TAKE ANY BLOOD THINNERS? (FOR EXAMPLE- COUMADIN, PLAVIX, AGGRENOX, PLATEL, PRADAXA, OR XARELTO) YES - PLAVIX . WHEN WAS YOUR LAST DOSE? DATE: TIME: . NEUROLOGY: HAVE YOU FALLEN IN THE PAST 12 MONTHS? NO . ANY NEW EXTREMITY NUMBNESS OR WEAKNESS? YES - LEFT KNEE WEAKNESS . CARDIOLOGY: DO YOU HAVE A PACEMAKER OR DEFIBRILLATOR? NO . RESPIRATORY: HAVE YOU BEEN SICK IN THE PAST WEEK? NO . FEVER NO . FLU LIKE SYMPTOMS? NO . COUGH NO . INTEGUMENTARY: DO YOU HAVE ANY RASHES OR OPEN SORES? NO . ALLERGIC/IMMUNO: ARE YOU ALLERGIC TO IV DYE? NO . ANY NEW ALLERGIES? NO . PSYCHIATRIC: DO YOU HAVE THOUGHTS OF HURTING YOURSELF OR SOMEONE ELSE? NO . ARE YOU ABUSED, NEGLECTED, OR IN AN UNSAFE ENVIRONMENT? NO . ENDOCRINOLOGY: ARE YOU DIABETIC? NO . OTHER: DO YOU NEED ANY PRESCRIPTIONS? NO . IF YES, PLEASE LIST: ____ . ANY NEW PROBLEMS WITH YOUR MEDICATIONS? NO . WHEN DID YOU LAST EAT? ____ . WHEN DID YOU LAST DRINK? ____ . WHAT DID YOU LAST DRINK? ____ . NAME OF PERSON DRIVING YOU HOME? ____ . DO YOU HAVE ANY OTHER QUESTIONS OR CONCERNS NO . VITAL SIGNS WT 197.4 LBS, HT 66 IN, BMI 31.86 INDEX, BP 167/91 MM HG, HR 82 /MIN, RR 18 /MIN, TEMP 97.1 F, OXYGEN SAT % 97%, NA INITIALS SC 09:10. EXAMINATION GENERAL EXAMINATION: GENERAL APPEARANCE:NO ACUTE DISTRESS, WELL NOURISHED AND HYDRATED. PSYCHAPPROPRIATE MOOD AND AFFECT . NECK: FROM TENDER TO PALPATION ALONG BILATERAL PARACERVICAL MUSCLES.. LUNGS:CLEAR TO AUSCULTATION BILATERALLY, NO WHEEZES, RHONCHI, RALES. HEART:NO MURMURS, REGULAR RATE AND RHYTHM. ASSESSMENTS SHOULDER PAIN, BILATERAL - M25.511 (PRIMARY) MYALGIA - M79.1 CERVICAL RADICULOPATHY AT C6 - M54.12 TREATMENT SHOULDER PAIN, BILATERAL CLINICAL NOTES: ISTOP REGISTRY REVIEWED AND DEMONSTRATES COMPLLIANCE. (REF # [id number] ) BRINGS IN MEDICATIONS WHICH IS APPROPRIATE FOR WHAT WAS DISPENSED. RECENT URINE TOXICOLOGY REVIEWED. NO UNAUTHORIZED MEDICATIONS. NO ILLICIT SUBSTANCES AND PRESCRIBED MEDICATIONS WERE PRESENT. , RISKS AND BENEFITS OF NARCOTIC/OPIOD MEDICATIONS WERE REVIEWED WITH PATIENT - THIS INCLUDES BUT IS NOT LIMITED TO RISK OF DEPENDANCE/DEVELOPMENT OF ADDICTION, MOOD DISTURBANCE AND DEPRESSION, OSTEOPOROSIS, HORMONAL AND LABIDAL CHANGES, RESPIRATORY DEPRESSION AND . PATIENT IS ADVISED NOT TO DRIVE OR DRINK ALCOHOL WHILE ON THESE MEDICATIONSCONTINUE WITH MEDICATION TREATMENT AND CONTINUE TO DECREASE PERCOCET. DECLINED PROCEDURES AT THIS POINT. PROCEDURE CODES FA211 ESTABILISHED PATIENT [facility] CHARGE DISPOSITION & COMMUNICATION FOLLOW UP 3 MONTHS ELECTRONICALLY SIGNED BY ALIZE SÁNCHEZ ON 10/01/2018 AT 04:14 PM EDT DISCLAIMER : THIS IS A VISIT SUMMARY EXTRACTED FROM THE [employer] CHART. IT IS NOT A COPY OF THE [employer] PROGRESS NOTE. MTDD
== END ==
LOC: M PAIN 08:30
PROVIDERS: ATTEND Nurse Practitioner Family
DX: M25.511 Pain in right shoulder (principal); M54.12 Radiculopathy, cervical region; M79.18 Myalgia, other site; I10 Essential (primary) hypertension; E78.00 Pure hypercholesterolemia, unspecified; M19.90 Unspecified osteoarthritis, unspecified site; Z79.01 Long term (current) use of anticoagulants; Z79.82 Long term (current) use of aspirin; Z79.899 Other long term (current) drug therapy; Z88.1 Allergy status to other antibiotic agents; Z88.8 Allergy status to other drugs, medicaments and biological substances; Z87.891 Personal history of nicotine dependence; Z86.79 Personal history of other diseases of the circulatory system

== ENCOUNTER → 2018-11-21 | Outpatient (CLI) | payer BC ==
[2018-11-21 06:46] LABS: HEMATOCRIT 45.9 % (42.0-52.0); HEMOGLOBIN 15.2 g/dl (13.5-17.5); MEAN CORPUSCULAR HEMOGLOBIN 31.3 pg (27.0-33.0); MEAN CORPUSCULAR HGB CONC 33.1 g/dl (32.0-36.5); MEAN CORPUSCULAR VOLUME 94.4 fl (80.0-96.0); PLATELET COUNT, AUTOMATED 230 10^3/uL (150-450); RED BLOOD COUNT 4.86 10^6/uL (4.30-6.10); WHITE BLOOD COUNT 7.6 10^3/uL (4.0-10.0)
[2018-11-21 07:26] LABS: ALBUMIN 3.6 GM/DL (3.2-5.2); ALT/SGPT 42 U/L (12-78); BILIRUBIN,TOTAL 0.4 MG/DL (0.2-1.0); BLOOD UREA NITROGEN 27 MG/DL (7-18); CALCIUM LEVEL 8.3 MG/DL (8.8-10.2); CARBON DIOXIDE LEVEL 27 MEQ/L (21-32); CHLORIDE LEVEL 107 MEQ/L (98-107); CHOLESTEROL LEVEL 193 MG/DL (<200); CHOLESTEROL RISK RATIO 3.574 (<5); CREATININE FOR GFR 1.07 MG/DL (0.70-1.30); GLOMERULAR FILTRATION RATE > 60.0 (>49); GLUCOSE, FASTING 105 MG/DL (70-100); HDL CHOLESTEROL 54 MG/DL (>40); LDL CHOLESTEROL 88 MG/DL (<100); NON-HDL-C 139 MG/DL; POTASSIUM SERUM 4.3 MEQ/L (3.5-5.1); PROSTATIC SPECIFIC AG MONITOR 0.23 NG/ML (< 4.00); SODIUM LEVEL 140 MEQ/L (136-145); TOTAL PROTEIN 6.9 GM/DL (6.4-8.2); TRIGLYCERIDES LEVEL 253 MG/DL (<150)
[2018-11-21 10:05] LABS: TESTOSTERONE 276 NG/DL (241-827)
== END ==
LOC: M LAB 06:20
PROVIDERS: ATTEND Family Medicine
DX: N40.0 Benign prostatic hyperplasia without lower urinary tract symptoms (principal); I10 Essential (primary) hypertension; R53.83 Other fatigue

== ENCOUNTER → 2018-12-31 | Outpatient (CLI) | payer BC ==
--- NOTE | 2019-01-02 00:41 | ECWPNPC ---
PATIENT NAME: KAYLAN MCKOY : 1955 GENDER: MALE VISIT DATE: 12/31/2018 DISCHARGE DATE: 12/31/18919 VISIT LOCKED DATE TIME: PHYSICIAN: OSVALDO MCKINNEY RESOURCE: OSVALDO MCKINNEY REASON FOR APPOINTMENT 1. NECK/SHOULDERS HISTORY OF PRESENT ILLNESS HISTORY OF PRESENT ILLNESS: PAIN THE PATIENT DESCRIBES THE PAIN... 63 YEAR OLD MALE IN FOR CHRONIC PAIN FOLLOW UP. HE RATES HIS PAIN AT A 4/10 CURRENTLY. HE STATES THE MEDICATIONS ARE WORKING WELL. HE DOES REPORT A MED SIDE EFFECT OF CONSTIPATION BUT FURTHER STATES HE IS CURRENTLY TAKING COLACE FOR THIS. HE HAS AN APPT AT THE END OF JANUARY TO DISCUSS SHOULDER SURGERY ON THE LEFT SIDE. FALL RISK SCREENING: SCREENING :NO FALLS REPORTED IN THE LAST YEAR CURRENT MEDICATIONS TAKING COLACE 100 MG CAPSULE 1 CAPSULE ORALLY BID TAKING CYCLOBENZAPRINE HCL 10 MG TABLET 1 TABLET ORALLY BID TAKING CARVEDILOL 3.125 MG TABLET 1 TABLET WITH FOOD ORALLY TWICE A DAY TAKING CRESTOR 20 MG TABLET 1 TABLET ORALLY ONCE A DAY TAKING SPIRONOLACTONE 25 MG TABLET 1/2 TABLET ORALLY ONCE A DAY TAKING PANTOPRAZOLE SODIUM 40 MG TABLET DELAYED RELEASE 1 TABLET ORALLY ONCE A DAY TAKING PLAVIX 75 MG TABLET 1 TABLET ORALLY ONCE A DAY TAKING MAGNESIUM 400 MG CAPSULE ORALLY TWICE A DAY TAKING VITAMIN D 2000 UNIT TABLET ORALLY BID TAKING MULTIPLE VITAMIN TABLET 1 TABLET ORALLY ONCE A DAY TAKING ASPIRIN 325 MG TABLET 1 TABLET ORALLY ONCE A DAY TAKING NITROGLYCERIN 0.4 MG TABLET SUBLINGUAL SUBLINGUAL DIRECTED FOR CHEST DISCOMFORT TAKING SENNA PLUS 8.6-50 MG TABLET 1 TABLET ORALLY ONCE A DAY TAKING TRAMADOL HCL 50 MG TABLET 1 TABLET NEEDED ORALLY EVERY 6 HRS PRN MDD4 TAKING NUCYNTA 75 MG TABLET 1 TABLET ORALLY EVERY 6 HRS PRN PAIN MDD=2 TAKING OXYCODONE-ACETAMINOPHEN 5-325 MG TABLET 1 TABLET EVERY 8 HOURS NEEDED ORALLY 1 TAB Q8H PRN MDD3 #60 TAB SHOULD LAST 30 DAYS TAKING ENTRESTO 24-26 MG TABLET 1 TABLET ORALLY TWICE A DAY TAKING LEVOTHYROXINE SODIUM 75 MCG TABLET 1 TABLET ON AN EMPTY STOMACH IN THE MORNING ORALLY ONCE A DAY NOT-TAKING TAMSULOSIN HCL 0.4 MG CAPSULE EXTENDED RELEASE ORALLY DAILY NOT-TAKING ISOSORBIDE MONONITRATE ER 30 MG TABLET EXTENDED RELEASE 24 HOUR 1 TABLET ORALLY ONCE A DAY NOT-TAKING TESTOSTERONE CYPIONATE 100 MG/ML SOLUTION 1 ML INTRAMUSCULAR Q 2 WEEKS NOT-TAKING MOVANTIK 25 MG TABLET 1 TABLET IN THE MORNING ORALLY ONCE A DAY DISCONTINUED LISINOPRIL 5 MG TABLET 1 TABLET ORALLY TWICE A DAY MEDICATION LIST REVIEWED AND RECONCILED WITH THE PATIENT PAST MEDICAL HISTORY HYPERTENSION HEART ATTACK HYPERCHOLESTEROLEMIA SHOULDER PAIN-BILATERAL ARTHRITS NECK PAIN ALLERGIES AMOXICILLIN: RASH METHOTREXATE: HEADACHES SURGICAL HISTORY BILALTERAL SHOULDER SURGERY CARDIAC STENTS X3 I & D SCROTAL MASS SPINAL FUSION C4,C5,C6 08/2017 FAMILY HISTORY FATHER: , DIAGNOSED WITH STROKE MOTHER: , DIABETES, HYPERTENSION, HEART DISEASE 2 SON(S) , 2 DAUGHTER(S) . MOM-HYPERPERLIPEDEMIA\\NOLDEST DAUGHTER-DIABETIC,HTN, HPERLIPEMEDIA\\NSISTER AND OLDER BROTHER- HEART DISEASE. SOCIAL HISTORY GENERAL: TOBACCO USE ARE YOU A:FORMER SMOKER HOW LONG HAS IT BEEN SINCE YOU LAST SMOKED?> 10 YEARS EDUCATION LEVEL OF EDUCATION:[employer] LANGUAGE LANGUAGES SPOKEN:EGYPTIAN DOMESTIC VIOLENCE DO YOU FEEL SAFE IN YOUR ENVIRONMENT?YES NEW PATIENT PAIN DIARY TODAY'S VISITNOTES RECREATIONAL DRUG USE DRUG USE?NO LEARNING BARRIERS / SPECIAL NEEDS CHANGE FROM LAST VISIT?NO BARRIERS TO LEARNING?NO HEARING IMPAIRED?NO VISION IMPAIRED?YES :CORRECTIVE LENSES COGNITIVELY IMPAIRED?NO READINESS TO LEARN?NO LEARNING PREFERENCES?NO LEARNING CAPABILITIES PRESENT?YES EMOTIONAL BARRIERS?NO SPECIAL DEVICES?NO EL TEACHER NEEDED?NO PAIN CLINIC PFS, CLERGY, PUBLIC HEALTH REFERRALS PFS REFERRAL NEEDED?NO CLERGY REFERRAL NEEDED?NO PUBLIC HEALTH REFERRAL NEEDED?NO WAS THE PROVIDER NOTIFIED OF ANY PERTINENT INFO?NO N/A HAS THE PATIENT BEEN EDUCATED REGARDING HIS/HER PLAN OF CARE?YES HAS THE PATIENT BEEN EDUCATED REGARDING PAIN, THE RISK FOR PAIN, THE IMPORTANCE OF EFFECTIVE PAIN MANAGEMENT, AND THE PAIN ASSESSMENT PROCESS?YES LATEX QUESTIONNAIRE LATEX ALLERGY : HAVE YOU EVER DEVELOPED ANY TYPE OF REACTION AFTER HANDLING LATEX PRODUCTS SUCH RUBBER GLOVES, CONDOMS, DIAPHRAGMS, BALLOONS, SOCKS, OR UNDERWEAR?NO LATEX ALLERGY : HAVE YOU EVER DEVELOPED ANY TYPE OF REACTION DURING OR AFTER DENTAL APPOINTMENT, VAGINAL/RECTAL EXAMINATION, SURGICAL PROCEDURE, OR ANY OTHER EXPOSURE?NO LATEX RISK : HAVE YOU EVER HAD ANY DIFFICULTY BREATHING OR HIVES AFTER EATING OR HANDLING ANY FRUITS, OR VEGETABLES; SUCH KIWI, BANANAS, STONE FRUITS, OR CHESTNUTSNO LATEX RISK : DO YOU HAVE A PREVIOUS PERSONAL HISTORY OF MORE THAN NINE SURGERIES, SPINA BIFIDA, OR REPEATED CATHERIZATIONS? NO LATEX RISK : ARE YOU FREQUENTLY EXPOSED TO LATEX PRODUCTS IN YOUR OCCUPATION?NO DATE ASKED : 09/03/2018 CAFFEINE CAFFEINE USE?YES HOW OFTEN AND HOW MUCH? 3CUPS COFFEE/DAY ADVANCE DIRECTIVE ADVANCE DIRECTIVE DISCUSSED WITH PATIENT:YES HCP-[facility] [phone](C) SCIENTOLOGIST [id number] QUAKER ALCOHOL SCREENING DID YOU HAVE A DRINK CONTAINING ALCOHOL IN THE PAST YEAR?NO POINTS0 INTERPRETATIONNEGATIVE 04/02/18904 REVIEWED WITH PT. ADREVIEWED WITH PT 07/03/1858 BV. HOSPITALIZATION/MAJOR DIAGNOSTIC PROCEDURE SCROTAL MASS CARDIAC STENTS 2013 NECK FUSION 08/2017 REVIEW OF SYSTEMS REVIEWED BY: PROVIDER: LUCIEN COUCH . CONSTITUTIONAL: ANY CHANGE IN YOUR MEDICAL CONDITION? YES, HYPOTHYROIDISM . CHILLS NO . FEVER NO . INFECTION: DO YOU HAVE NEW INFECTIONS? NO . DO YOU HAVE HISTORY OF MRSA? NO . MUSCULOSKELETAL: ANY NEW PATTERNS OF PAIN OR NUMBNESS? YES ,LEFT SHOULDER RADIATING DOWN LEFT ARM WORSENING X 2 MOS . GASTROENTEROLOGY: ANY NEW CHANGE IN BOWEL CONTROL? NO . GENITOURINARY: ANY NEW CHANGE IN BLADDER CONTROL? NO . IS THERE A CHANCE YOU COULD BE ? NO . HEMATOLOGY/LYMPH: DO YOU TAKE ANY BLOOD THINNERS? (FOR EXAMPLE- COUMADIN, PLAVIX, AGGRENOX, PLATEL, PRADAXA, OR XARELTO) YES, PLAVIX . WHEN WAS YOUR LAST DOSE? DATE: TIME: . NEUROLOGY: HAVE YOU FALLEN IN THE PAST 12 MONTHS? NO . ANY NEW EXTREMITY NUMBNESS OR WEAKNESS? NO . CARDIOLOGY: DO YOU HAVE A PACEMAKER OR DEFIBRILLATOR? NO . RESPIRATORY: HAVE YOU BEEN SICK IN THE PAST WEEK? YES, BRONCHITIS TX'D W ABX RESOLVED . FEVER YES . FLU LIKE SYMPTOMS? NO . COUGH YES . INTEGUMENTARY: DO YOU HAVE ANY RASHES OR OPEN SORES? NO . ALLERGIC/IMMUNO: ARE YOU ALLERGIC TO IV DYE? NO . ANY NEW ALLERGIES? NO . PSYCHIATRIC: DO YOU HAVE THOUGHTS OF HURTING YOURSELF OR SOMEONE ELSE? NO . ARE YOU ABUSED, NEGLECTED, OR IN AN UNSAFE ENVIRONMENT? NO . ENDOCRINOLOGY: ARE YOU DIABETIC? NO . OTHER: DO YOU NEED ANY PRESCRIPTIONS? YES, FLEXARIL, NUCYNTA, SENNA . IF YES, PLEASE LIST: ____ . ANY NEW PROBLEMS WITH YOUR MEDICATIONS? NO . WHEN DID YOU LAST EAT? ____ . WHEN DID YOU LAST DRINK? ____ . WHAT DID YOU LAST DRINK? ____ . NAME OF PERSON DRIVING YOU HOME? ____ . DO YOU HAVE ANY OTHER QUESTIONS OR CONCERNS NO . VITAL SIGNS WT 197 LBS, HT 66 IN, BMI 31.79 INDEX, BP 147/78 MM HG, HR 81 /MIN, RR 18 /MIN, TEMP 94.9 F, OXYGEN SAT % 96%, NA INITIALS SC 09:04, REVIEWED BY: EM. EXAMINATION GENERAL EXAMINATION: GENERALNO ACUTE DISTRESS, WELL NOURISHED AND HYDRATED. PSYCHAPPROPRIATE MOOD AND AFFECT . LUNGS:CLEAR TO AUSCULTATION BILATERALLY, NO WHEEZES, RHONCHI, RALES. HEART:NO MURMURS, REGULAR RATE AND RHYTHM. ASSESSMENTS SHOULDER PAIN, BILATERAL - M25.511 (PRIMARY) TREATMENT SHOULDER PAIN, BILATERAL CLINICAL NOTES: 63 YEAR OLD MALE IN FOR CHRONIC PAIN FOLLOW UP. GIVEN PRESENTING SYMPTOMS AND RESULTS OF PHYSICAL EXAMINATION RECOMMENDED CONTINUATION OF CURRENT MEDICATION REGIMEN WITH FOLLOW UP IN 2 MONTHS. PATIENT HAS EXPRESSED UNDERSTANDING OF AND WAS IN AGREEMENT WITH TX PLAN. GIVEN TIME TO ASK QUESTIONS AND EXPRESS CONCERNS. ISTOP REGISTRY REVIEWED AND DEMONSTRATES COMPLLIANCE. (REF #[id number] ) BRINGS IN MEDICATIONS WHICH IS APPROPRIATE FOR WHAT WAS DISPENSED. RECENT URINE TOXICOLOGY REVIEWED. NO UNAUTHORIZED MEDICATIONS. NO ILLICIT SUBSTANCES AND PRESCRIBED MEDICATIONS WERE PRESENT. , RISKS AND BENEFITS OF NARCOTIC/OPIOD MEDICATIONS WERE REVIEWED WITH PATIENT - THIS INCLUDES BUT IS NOT LIMITED TO RISK OF DEPENDANCE/DEVELOPMENT OF ADDICTION, MOOD DISTURBANCE AND DEPRESSION, OSTEOPOROSIS, HORMONAL AND LABIDAL CHANGES, RESPIRATORY DEPRESSION AND . PATIENT IS ADVISED NOT TO DRIVE OR DRINK ALCOHOL WHILE ON THESE MEDICATIONS. PROCEDURE CODES FA211 ESTABILISHED PATIENT [facility] CHARGE DISPOSITION & COMMUNICATION FOLLOW UP 2 MONTHS (REASON: CHRONIC PAIN ) ELECTRONICALLY SIGNED BY ALIZE ADAIR ON 01/01/2019 AT 10:01 AM EDT DISCLAIMER : THIS IS A VISIT SUMMARY EXTRACTED FROM THE [employer] CHART. IT IS NOT A COPY OF THE [employer] PROGRESS NOTE. MARI
== END ==
LOC: M PAIN 08:45
PROVIDERS: ATTEND Family Medicine
DX: M25.511 Pain in right shoulder (principal); I10 Essential (primary) hypertension; I25.2 Old myocardial infarction; E78.00 Pure hypercholesterolemia, unspecified; M25.512 Pain in left shoulder; M19.90 Unspecified osteoarthritis, unspecified site; M54.2 Cervicalgia; Z87.891 Personal history of nicotine dependence; Z79.02 Long term (current) use of antithrombotics/antiplatelets; Z79.891 Long term (current) use of opiate analgesic; Z79.899 Other long term (current) drug therapy; Z88.1 Allergy status to other antibiotic agents; Z88.8 Allergy status to other drugs, medicaments and biological substances; Z95.5 Presence of coronary angioplasty implant and graft; Z98.1 Arthrodesis status

== ENCOUNTER → 2019-01-09 | Outpatient (CLI) | payer BC ==
[2019-01-09 07:16] LABS: HEMATOCRIT 44.2 % (42.0-52.0); HEMOGLOBIN 14.4 g/dl (13.5-17.5); MEAN CORPUSCULAR HGB CONC 32.6 g/dl (32.0-36.5); MEAN CORPUSCULAR VOLUME 95.3 fl (80.0-96.0); PLATELET COUNT, AUTOMATED 293 10^3/uL (150-450); RED BLOOD COUNT 4.64 10^6/uL (4.30-6.10); WHITE BLOOD COUNT 4.4 10^3/uL (4.0-10.0)
[2019-01-09 07:45] LABS: ALBUMIN 3.8 GM/DL (3.2-5.2); ALT/SGPT 37 U/L (12-78); BILIRUBIN,TOTAL 0.3 MG/DL (0.2-1.0); BLOOD UREA NITROGEN 12 MG/DL (7-18); CALCIUM LEVEL 8.9 MG/DL (8.8-10.2); CARBON DIOXIDE LEVEL 31 MEQ/L (21-32); CHLORIDE LEVEL 105 MEQ/L (98-107); CHOLESTEROL LEVEL 172 MG/DL (<200); CREATININE FOR GFR 1.04 MG/DL (0.70-1.30); GLOMERULAR FILTRATION RATE > 60.0 (>49); GLUCOSE, FASTING 144 MG/DL (70-100); HDL CHOLESTEROL 39 MG/DL (>40); LDL CHOLESTEROL 72 MG/DL (<100); MAGNESIUM LEVEL 2.5 MG/DL (1.8-2.4); NON-HDL-C 133 MG/DL; POTASSIUM SERUM 4.2 MEQ/L (3.5-5.1); SODIUM LEVEL 140 MEQ/L (136-145); TOTAL PROTEIN 7.1 GM/DL (6.4-8.2); TRIGLYCERIDES LEVEL 305 MG/DL (<150)
== END ==
LOC: M LAB 06:25
PROVIDERS: ATTEND Physician Assistant
DX: I25.10 Atherosclerotic heart disease of native coronary artery without angina pectoris (principal)

== ENCOUNTER → 2019-01-09 | Outpatient (CLI) | payer BC ==
[2019-01-09 07:17] LABS: HEMATOCRIT 42.5 % (42.0-52.0); HEMOGLOBIN 14.1 g/dl (13.5-17.5); MEAN CORPUSCULAR HEMOGLOBIN 30.9 pg (27.0-33.0); MEAN CORPUSCULAR HGB CONC 33.2 g/dl (32.0-36.5); PLATELET COUNT, AUTOMATED 300 10^3/uL (150-450); RED BLOOD COUNT 4.57 10^6/uL (4.30-6.10); WHITE BLOOD COUNT 4.4 10^3/uL (4.0-10.0)
[2019-01-09 07:56] LABS: ALBUMIN 3.9 GM/DL (3.2-5.2); ALT/SGPT 37 U/L (12-78); BILIRUBIN,TOTAL 0.3 MG/DL (0.2-1.0); BLOOD UREA NITROGEN 13 MG/DL (7-18); CALCIUM LEVEL 9.1 MG/DL (8.8-10.2); CARBON DIOXIDE LEVEL 31 MEQ/L (21-32); CHLORIDE LEVEL 105 MEQ/L (98-107); CHOLESTEROL LEVEL 162 MG/DL (<200); CHOLESTEROL RISK RATIO 4.263 (<5); CREATININE FOR GFR 1.05 MG/DL (0.70-1.30); GLOMERULAR FILTRATION RATE > 60.0 (>49); GLUCOSE, FASTING 147 MG/DL (70-100); HDL CHOLESTEROL 38 MG/DL (>40); LDL CHOLESTEROL 66 MG/DL (<100); NON-HDL-C 124 MG/DL; POTASSIUM SERUM 4.3 MEQ/L (3.5-5.1); SODIUM LEVEL 141 MEQ/L (136-145); THYROID STIMULATING HORMONE 0.954 uIU/ML (0.358-3.740); TOTAL PROTEIN 6.8 GM/DL (6.4-8.2); TRIGLYCERIDES LEVEL 288 MG/DL (<150)
[2019-01-09 09:17] LABS: TESTOSTERONE 303 NG/DL (241-827); TOTAL 25(OH) VITAMIN D 41.4 NG/ML (30.0-100.0)
== END ==
LOC: M LAB 06:21
PROVIDERS: ATTEND Family Medicine
DX: E11.9 Type 2 diabetes mellitus without complications (principal); D64.9 Anemia, unspecified

== ENCOUNTER → 2019-03-05 | Outpatient (CLI) | payer BC ==
[~2019-03-05] MED LIST changes: -ASPI-222 PO; +ASPI-527 PO
[2019-03-05 10:28] LABS: ALT/SGPT 41 U/L (12-78); BILIRUBIN,TOTAL 0.4 MG/DL (0.2-1.0); BLOOD UREA NITROGEN 13 MG/DL (7-18); CALCIUM LEVEL 8.9 MG/DL (8.8-10.2); CARBON DIOXIDE LEVEL 26 MEQ/L (21-32); CHLORIDE LEVEL 106 MEQ/L (98-107); CHOLESTEROL LEVEL 164 MG/DL (<200); CHOLESTEROL RISK RATIO 3.813 (<5); CREATININE FOR GFR 0.93 MG/DL (0.70-1.30); GLOMERULAR FILTRATION RATE > 60.0 (>49); GLUCOSE, FASTING 107 MG/DL (70-100); HDL CHOLESTEROL 43 MG/DL (>40); LDL CHOLESTEROL 77 MG/DL (<100); MAGNESIUM LEVEL 2.3 MG/DL (1.8-2.4); NON-HDL-C 121 MG/DL; POTASSIUM SERUM 4.3 MEQ/L (3.5-5.1); SODIUM LEVEL 142 MEQ/L (136-145); TRIGLYCERIDES LEVEL 218 MG/DL (<150)
== END ==
LOC: M LAB 07:49
PROVIDERS: ATTEND Physician Assistant
DX: I25.10 Atherosclerotic heart disease of native coronary artery without angina pectoris (principal); I25.5 Ischemic cardiomyopathy; E78.2 Mixed hyperlipidemia

== ENCOUNTER → 2019-04-07 | Outpatient (CLI) | payer BC ==
[2019-04-07 07:15] LABS: BLOOD UREA NITROGEN 13 MG/DL (7-18); CALCIUM LEVEL 8.8 MG/DL (8.8-10.2); CARBON DIOXIDE LEVEL 26 MEQ/L (21-32); CHLORIDE LEVEL 106 MEQ/L (98-107); CREATININE FOR GFR 0.98 MG/DL (0.70-1.30); GLOMERULAR FILTRATION RATE > 60.0 (>49); GLUCOSE, FASTING 101 MG/DL (70-100); SODIUM LEVEL 140 MEQ/L (136-145)
== END ==
LOC: M LAB 06:17
PROVIDERS: ATTEND Physician Assistant
DX: I25.5 Ischemic cardiomyopathy (principal)

== ENCOUNTER → 2019-04-08 | Outpatient (CLI) | payer BC ==
--- NOTE | 2019-04-10 01:46 | ECWPNPC ---
PATIENT NAME: KAYLAN MCKOY : 1955 GENDER: MALE VISIT DATE: 04/08/2019 DISCHARGE DATE: 04/08/19913 VISIT LOCKED DATE TIME: PHYSICIAN: OSVALDO MCKINNEY RESOURCE: OSVALDO MCKINNEY REASON FOR APPOINTMENT 1. CHRONIC PAIN HISTORY OF PRESENT ILLNESS HISTORY OF PRESENT ILLNESS: PAIN THE PATIENT DESCRIBES THE PAIN... 64-YEAR-OLD MALE IN FOR CHRONIC PAIN FOLLOW-UP. HE RATES HIS PAIN CURRENTLY AT A 9 OUT OF 10 AND DESCRIBES IT ACHING, SHARP, SHOOTING, CONSTANT HE FURTHER STATES IT IS CONTINUOUS LASTING ALL DAY AND WAKES HIM FROM HIS SLEEP. HE FEELS MEDICATIONS ARE WORKING WELL AND DENIES MED SIDE EFFECTS AT THIS TIME. HE DOES ADMIT TO AN UPCOMING SHOULDER SURGERY ON MAY 02. FALL RISK SCREENING: SCREENING :NO FALLS REPORTED IN THE LAST YEAR CURRENT MEDICATIONS TAKING CARVEDILOL 3.125 MG TABLET 1 TABLET WITH FOOD ORALLY TWICE A DAY TAKING CRESTOR 20 MG TABLET 1 TABLET ORALLY ONCE A DAY TAKING SPIRONOLACTONE 25 MG TABLET 1/2 TABLET ORALLY ONCE A DAY TAKING PANTOPRAZOLE SODIUM 40 MG TABLET DELAYED RELEASE 1 TABLET ORALLY ONCE A DAY TAKING PLAVIX 75 MG TABLET 1 TABLET ORALLY ONCE A DAY TAKING MAGNESIUM 400 MG CAPSULE ORALLY TWICE A DAY TAKING VITAMIN D 2000 UNIT TABLET ORALLY BID TAKING MULTIPLE VITAMIN TABLET 1 TABLET ORALLY ONCE A DAY TAKING ASPIRIN 325 MG TABLET 1 TABLET ORALLY ONCE A DAY TAKING NITROGLYCERIN 0.4 MG TABLET SUBLINGUAL SUBLINGUAL DIRECTED FOR CHEST DISCOMFORT TAKING SENNA PLUS 8.6-50 MG TABLET 1 TABLET ORALLY ONCE A DAY TAKING TRAMADOL HCL 50 MG TABLET 1 TABLET NEEDED ORALLY EVERY 6 HRS PRN MDD4 TAKING ENTRESTO 24-26 MG TABLET 1 TABLET ORALLY TWICE A DAY TAKING LEVOTHYROXINE SODIUM 75 MCG TABLET 1 TABLET ON AN EMPTY STOMACH IN THE MORNING ORALLY ONCE A DAY TAKING NUCYNTA 75 MG TABLET 1 TABLET ORALLY EVERY 6 HRS PRN PAIN MDD=2 TAKING CYCLOBENZAPRINE HCL 10 MG TABLET 1 TABLET ORALLY BID TAKING COLACE 100 MG CAPSULE 1 CAPSULE ORALLY BID TAKING OXYCODONE-ACETAMINOPHEN 5-325 MG TABLET 1 TABLET EVERY 8 HOURS NEEDED ORALLY 1 TAB Q8H PRN MDD3 #60 TAB SHOULD LAST 30 DAYS NOT-TAKING TAMSULOSIN HCL 0.4 MG CAPSULE EXTENDED RELEASE ORALLY DAILY NOT-TAKING ISOSORBIDE MONONITRATE ER 30 MG TABLET EXTENDED RELEASE 24 HOUR 1 TABLET ORALLY ONCE A DAY NOT-TAKING TESTOSTERONE CYPIONATE 100 MG/ML SOLUTION 1 ML INTRAMUSCULAR Q 2 WEEKS NOT-TAKING MOVANTIK 25 MG TABLET 1 TABLET IN THE MORNING ORALLY ONCE A DAY MEDICATION LIST REVIEWED AND RECONCILED WITH THE PATIENT PAST MEDICAL HISTORY HYPERTENSION HEART ATTACK HYPERCHOLESTEROLEMIA SHOULDER PAIN-BILATERAL ARTHRITS NECK PAIN ALLERGIES AMOXICILLIN: RASH METHOTREXATE: HEADACHES SURGICAL HISTORY BILALTERAL SHOULDER SURGERY CARDIAC STENTS X3 I & D SCROTAL MASS SPINAL FUSION C4,C5,C6 08/2017 LEFT SHOULDER REPLACEMENT 04/2019 FAMILY HISTORY FATHER: , DIAGNOSED WITH UNSPECIFIED CEREBRAL ARTERY OCCLUSION WITH CEREBRAL INFARCTION MOTHER: , UNSPECIFIED HEART DISEASE, DIABETES, HYPERTENSION 2 SON(S) , 2 DAUGHTER(S) . MOM-HYPERPERLIPEDEMIA\\NOLDEST DAUGHTER-DIABETIC,HTN, HPERLIPEMEDIA\\NSISTER AND OLDER BROTHER- HEART DISEASE. SOCIAL HISTORY GENERAL: TOBACCO USE ARE YOU A:FORMER SMOKER HOW LONG HAS IT BEEN SINCE YOU LAST SMOKED?> 10 YEARS EDUCATION LEVEL OF EDUCATION:[employer] LANGUAGE LANGUAGES SPOKEN:ICELANDIC DOMESTIC VIOLENCE DO YOU FEEL SAFE IN YOUR ENVIRONMENT?YES NEW PATIENT PAIN DIARY TODAY'S VISITNOTES RECREATIONAL DRUG USE DRUG USE?NO LEARNING BARRIERS / SPECIAL NEEDS CHANGE FROM LAST VISIT?NO BARRIERS TO LEARNING?NO HEARING IMPAIRED?NO VISION IMPAIRED?YES COGNITIVELY IMPAIRED?NO :CORRECTIVE LENSES READINESS TO LEARN?NO LEARNING PREFERENCES?NO LEARNING CAPABILITIES PRESENT?YES EMOTIONAL BARRIERS?NO SPECIAL DEVICES?NO HEALTH INFORMATION ASSISTANT NEEDED?NO PAIN CLINIC PFS, CLERGY, PUBLIC HEALTH REFERRALS PFS REFERRAL NEEDED?NO CLERGY REFERRAL NEEDED?NO PUBLIC HEALTH REFERRAL NEEDED?NO WAS THE PROVIDER NOTIFIED OF ANY PERTINENT INFO?NO N/A HAS THE PATIENT BEEN EDUCATED REGARDING HIS/HER PLAN OF CARE?YES HAS THE PATIENT BEEN EDUCATED REGARDING PAIN, THE RISK FOR PAIN, THE IMPORTANCE OF EFFECTIVE PAIN MANAGEMENT, AND THE PAIN ASSESSMENT PROCESS?YES LATEX QUESTIONNAIRE LATEX ALLERGY : HAVE YOU EVER DEVELOPED ANY TYPE OF REACTION AFTER HANDLING LATEX PRODUCTS SUCH RUBBER GLOVES, CONDOMS, DIAPHRAGMS, BALLOONS, SOCKS, OR UNDERWEAR?NO LATEX ALLERGY : HAVE YOU EVER DEVELOPED ANY TYPE OF REACTION DURING OR AFTER DENTAL APPOINTMENT, VAGINAL/RECTAL EXAMINATION, SURGICAL PROCEDURE, OR ANY OTHER EXPOSURE?NO LATEX RISK : HAVE YOU EVER HAD ANY DIFFICULTY BREATHING OR HIVES AFTER EATING OR HANDLING ANY FRUITS, OR VEGETABLES; SUCH KIWI, BANANAS, STONE FRUITS, OR CHESTNUTSNO LATEX RISK : DO YOU HAVE A PREVIOUS PERSONAL HISTORY OF MORE THAN NINE SURGERIES, SPINA BIFIDA, OR REPEATED CATHERIZATIONS? NO LATEX RISK : ARE YOU FREQUENTLY EXPOSED TO LATEX PRODUCTS IN YOUR OCCUPATION?NO DATE ASKED : 09/03/2018 CAFFEINE CAFFEINE USE?YES HOW OFTEN AND HOW MUCH? 3CUPS COFFEE/DAY ADVANCE DIRECTIVE ADVANCE DIRECTIVE DISCUSSED WITH PATIENT:YES [facility] [phone](C) JAIN [id number] ZOROASTRIAN ALCOHOL SCREENING DID YOU HAVE A DRINK CONTAINING ALCOHOL IN THE PAST YEAR?NO POINTS0 INTERPRETATIONNEGATIVE 04/02/18 0905 REVIEWED WITH PT. ADREVIEWED WITH PT 07/03/18 0958 BVREVIEWED WITH PATIENT 04/08/19 0857 JS. HOSPITALIZATION/MAJOR DIAGNOSTIC PROCEDURE SCROTAL MASS CARDIAC STENTS 2013 NECK FUSION 08/2017 REVIEW OF SYSTEMS REVIEWED BY: PROVIDER: LUCIEN COUCH . CONSTITUTIONAL: ANY CHANGE IN YOUR MEDICAL CONDITION? NO . CHILLS NO . FEVER NO . INFECTION: DO YOU HAVE NEW INFECTIONS? NO . DO YOU HAVE HISTORY OF MRSA? NO . MUSCULOSKELETAL: ANY NEW PATTERNS OF PAIN OR NUMBNESS? YES, STATES LEFT SHOULDER PAIN IS WORSENING - SCHEDULED FOR SHOULDER REPLACEMENT NEXT MONTH . GASTROENTEROLOGY: ANY NEW CHANGE IN BOWEL CONTROL? NO . GENITOURINARY: ANY NEW CHANGE IN BLADDER CONTROL? NO . IS THERE A CHANCE YOU COULD BE ? NO . HEMATOLOGY/LYMPH: DO YOU TAKE ANY BLOOD THINNERS? (FOR EXAMPLE- COUMADIN, PLAVIX, AGGRENOX, PLATEL, PRADAXA, OR XARELTO) YES, PLAVIX . WHEN WAS YOUR LAST DOSE? DATE: 04/08/19TIME: 0630 . NEUROLOGY: HAVE YOU FALLEN IN THE PAST 12 MONTHS? NO . ANY NEW EXTREMITY NUMBNESS OR WEAKNESS? NO . CARDIOLOGY: DO YOU HAVE A PACEMAKER OR DEFIBRILLATOR? NO . RESPIRATORY: HAVE YOU BEEN SICK IN THE PAST WEEK? NO . FEVER NO . FLU LIKE SYMPTOMS? NO . COUGH NO . INTEGUMENTARY: DO YOU HAVE ANY RASHES OR OPEN SORES? NO . ALLERGIC/IMMUNO: ARE YOU ALLERGIC TO IV DYE? NO . ANY NEW ALLERGIES? NO . PSYCHIATRIC: DO YOU HAVE THOUGHTS OF HURTING YOURSELF OR SOMEONE ELSE? NO . ARE YOU ABUSED, NEGLECTED, OR IN AN UNSAFE ENVIRONMENT? NO . ENDOCRINOLOGY: ARE YOU DIABETIC? NO . OTHER: DO YOU NEED ANY PRESCRIPTIONS? YES, FLEXERIL, COLACE, NUCYNTA . IF YES, PLEASE LIST: ____ . ANY NEW PROBLEMS WITH YOUR MEDICATIONS? NO . WHEN DID YOU LAST EAT? ____ . WHEN DID YOU LAST DRINK? ____ . WHAT DID YOU LAST DRINK? ____ . NAME OF PERSON DRIVING YOU HOME? ____ . DO YOU HAVE ANY OTHER QUESTIONS OR CONCERNS NO . VITAL SIGNS WT 196.8 LBS, HT 66 IN, BMI 31.76 INDEX, BP 122/79 MM HG, HR 86 /MIN, RR 18 /MIN, TEMP 96.4 F, OXYGEN SAT % 97%, SAFE IN ENV? (Y/N) YES, NA INITIALS SC 09:09, REVIEWED BY: JYOTI. EXAMINATION GENERAL EXAMINATION: GENERALNO ACUTE DISTRESS, WELL NOURISHED AND HYDRATED. PSYCHAPPROPRIATE MOOD AND AFFECT . LUNGS:CLEAR TO AUSCULTATION BILATERALLY, NO WHEEZES, RHONCHI, RALES. HEART:NO MURMURS, REGULAR RATE AND RHYTHM. ASSESSMENTS SHOULDER PAIN, BILATERAL - M25.511 (PRIMARY) TREATMENT SHOULDER PAIN, BILATERAL REFILL NUCYNTA TABLET, 75 MG, 1 TABLET, ORALLY, EVERY 6 HRS PRN PAIN MDD=2, 30 DAY(S), 60, REFILLS 0 REFILL CYCLOBENZAPRINE HCL TABLET, 10 MG, 1 TABLET, ORALLY, BID, 30 DAYS, 60 TABLET, REFILLS 3 REFILL COLACE CAPSULE, 100 MG, 1 CAPSULE, ORALLY, BID, 30 DAYS, 60 CAPSULE, REFILLS 3 CLINICAL NOTES: 64-YEAR-OLD MALE IN FOR CHRONIC PAIN FOLLOW-UP. GIVEN PRESENTING SYMPTOMS AND RESULTS OF PHYSICAL EXAMINATION RECOMMENDED CONTINUATION OF CURRENT MEDICATION REGIMEN WITH FOLLOW-UP IN 3 MONTHS. PATIENT HAS EXPRESSED UNDERSTANDING OF AND WAS IN AGREEMENT WITH TREATMENT PLAN. GIVEN TIME TO ASK QUESTIONS AND EXPRESS CONCERNS., ISTOP REGISTRY REVIEWED AND DEMONSTRATES COMPLLIANCE. (REF # [id number] ) BRINGS IN MEDICATIONS WHICH IS APPROPRIATE FOR WHAT WAS DISPENSED. RECENT URINE TOXICOLOGY REVIEWED. NO UNAUTHORIZED MEDICATIONS. NO ILLICIT SUBSTANCES AND PRESCRIBED MEDICATIONS WERE PRESENT. -. PROCEDURE CODES FA211 ESTABILISHED PATIENT FORMERLY [facility] CHARGE DISPOSITION & COMMUNICATION FOLLOW UP 3 MONTHS (REASON: CHRONIC PAIN) ELECTRONICALLY SIGNED BY ALIZE ADAIR ON 04/09/2019 AT 08:27 AM EDT DISCLAIMER : THIS IS A VISIT SUMMARY EXTRACTED FROM THE [employer] CHART. IT IS NOT A COPY OF THE [employer] PROGRESS NOTE. MARI
== END ==
LOC: M PAIN 08:45
PROVIDERS: ATTEND Family Medicine
DX: M25.511 Pain in right shoulder (principal); I10 Essential (primary) hypertension; E78.00 Pure hypercholesterolemia, unspecified; I25.2 Old myocardial infarction; M25.512 Pain in left shoulder; M54.2 Cervicalgia; M19.90 Unspecified osteoarthritis, unspecified site; Z87.891 Personal history of nicotine dependence; Z79.02 Long term (current) use of antithrombotics/antiplatelets; Z79.891 Long term (current) use of opiate analgesic; Z79.82 Long term (current) use of aspirin; Z79.899 Other long term (current) drug therapy; Z88.0 Allergy status to penicillin; Z88.8 Allergy status to other drugs, medicaments and biological substances; Z95.5 Presence of coronary angioplasty implant and graft; Z98.1 Arthrodesis status; Z96.612 Presence of left artificial shoulder joint

== ENCOUNTER → 2019-04-15 | Outpatient (CLI) | payer BC ==
[2019-04-15 07:21] LABS: HEMATOCRIT 42.8 % (42.0-52.0); HEMOGLOBIN 14.6 g/dl (13.5-17.5); MEAN CORPUSCULAR HEMOGLOBIN 30.8 pg (27.0-33.0); MEAN CORPUSCULAR HGB CONC 34.1 g/dl (32.0-36.5); MEAN CORPUSCULAR VOLUME 90.3 fl (80.0-96.0); PLATELET COUNT, AUTOMATED 261 10^3/uL (150-450); RED BLOOD COUNT 4.74 10^6/uL (4.30-6.10); WHITE BLOOD COUNT 4.5 10^3/uL (4.0-10.0)
[2019-04-15 07:32] LABS: INR 1.04; PROTHROMBIN TIME 13.3 SECONDS (11.8-14.0)
[2019-04-15 07:42] LABS: HEMOGLOBIN A1c 6.6 %
[2019-04-15 07:59] LABS: ALBUMIN 3.8 GM/DL (3.2-5.2); ALT/SGPT 38 U/L (12-78); BILIRUBIN,TOTAL 0.5 MG/DL (0.2-1.0); BLOOD UREA NITROGEN 13 MG/DL (7-18); CALCIUM LEVEL 8.9 MG/DL (8.8-10.2); CARBON DIOXIDE LEVEL 27 MEQ/L (21-32); CHLORIDE LEVEL 108 MEQ/L (98-107); CHOLESTEROL LEVEL 129 MG/DL (<200); CHOLESTEROL RISK RATIO 3.583 (<5); CREATININE FOR GFR 1.02 MG/DL (0.70-1.30); GLOMERULAR FILTRATION RATE > 60.0 (>49); GLUCOSE, FASTING 130 MG/DL (70-100); HDL CHOLESTEROL 36 MG/DL (>40); LDL CHOLESTEROL 44 MG/DL (<100); NON-HDL-C 93 MG/DL; POTASSIUM SERUM 4.1 MEQ/L (3.5-5.1); SODIUM LEVEL 141 MEQ/L (136-145); THYROID STIMULATING HORMONE 0.014 uIU/ML (0.358-3.740); TOTAL PROTEIN 6.6 GM/DL (6.4-8.2); TRIGLYCERIDES LEVEL 245 MG/DL (<150)
--- NOTE | 2019-04-15 09:18 | REP ---
Two-view chest: 04/15/2019. Indication: Preoperative assessment. Comparison: 04/05/2018. Findings: Minimal plate-like atelectasis of the right lower lobe is redemonstrated. The lungs are otherwise clear. There is no pleural effusion or pneumothorax. Postoperative sequelae are redemonstrated. The cardiac silhouette is unremarkable. Impression: No acute cardiopulmonary process. Electronically Signed by Gary Schneider DO 04/15/2019 09:10 A
== END ==
LOC: M LAB 06:44
PROVIDERS: ATTEND Family Medicine
DX: Z01.818 Encounter for other preprocedural examination (principal); I10 Essential (primary) hypertension; E11.9 Type 2 diabetes mellitus without complications

== ENCOUNTER → 2019-05-01 | Outpatient (CLI) | payer BC ==
[2019-05-01 07:30] LABS: BLOOD UREA NITROGEN 15 MG/DL (7-18); CALCIUM LEVEL 9.1 MG/DL (8.8-10.2); CARBON DIOXIDE LEVEL 27 MEQ/L (21-32); CHLORIDE LEVEL 109 MEQ/L (98-107); CREATININE FOR GFR 0.99 MG/DL (0.70-1.30); GLOMERULAR FILTRATION RATE > 60.0 (>49); GLUCOSE, FASTING 129 MG/DL (70-100); POTASSIUM SERUM 4.1 MEQ/L (3.5-5.1); SODIUM LEVEL 142 MEQ/L (136-145)
== END ==
LOC: M LAB 06:13
PROVIDERS: ATTEND Physician Assistant
DX: I25.5 Ischemic cardiomyopathy (principal)

== ENCOUNTER → 2019-07-09 | Outpatient (CLI) | payer BC ==
--- NOTE | 2019-07-11 04:02 | ECWPNPC ---
PATIENT NAME: KAYLAN MCKOY : 1955 GENDER: MALE VISIT DATE: 07/09/2019 DISCHARGE DATE: 07/09/19 0937 VISIT LOCKED DATE TIME: PHYSICIAN: OSVALDO MCKINNEY RESOURCE: OSVALDO MCKINNEY REASON FOR APPOINTMENT 1. CHRONIC PAIN HISTORY OF PRESENT ILLNESS HISTORY OF PRESENT ILLNESS: PAIN THE PATIENT DESCRIBES THE PAIN... 64-YEAR-OLD MALE IN FOR CHRONIC PAIN FOLLOW-UP. HE RATES HIS PAIN CURRENTLY AT A 6 OUT OF 10 AND DESCRIBES IT ACHING, SHARP, SORE, AND TENDER. WHEN HE WAS ON THE NUCYNTA AND OXYCODONE HE STATES THIS MEDICATIONS WORKED WELL AND HELPS RELIEVE HIS SYMPTOMS. HOWEVER, HE HAS NOT BEEN ON THESE MEDICATIONS SINCE MARCH HE RECEIVED RECENT SHOULDER SURGERY AND HIS SURGEON HAD URGED HIM TO DISCONTINUE USE. FALL RISK SCREENING: SCREENING :NO FALLS REPORTED IN THE LAST YEAR CURRENT MEDICATIONS TAKING CARVEDILOL 3.125 MG TABLET 1 TABLET WITH FOOD ORALLY TWICE A DAY TAKING CRESTOR 20 MG TABLET 1 TABLET ORALLY ONCE A DAY TAKING SPIRONOLACTONE 25 MG TABLET 1/2 TABLET ORALLY ONCE A DAY TAKING PANTOPRAZOLE SODIUM 40 MG TABLET DELAYED RELEASE 1 TABLET ORALLY ONCE A DAY TAKING PLAVIX 75 MG TABLET 1 TABLET ORALLY ONCE A DAY TAKING MAGNESIUM 400 MG CAPSULE ORALLY TWICE A DAY TAKING VITAMIN D 2000 UNIT TABLET ORALLY BID TAKING MULTIPLE VITAMIN TABLET 1 TABLET ORALLY ONCE A DAY TAKING ASPIRIN 325 MG TABLET 1 TABLET ORALLY ONCE A DAY TAKING NITROGLYCERIN 0.4 MG TABLET SUBLINGUAL SUBLINGUAL DIRECTED FOR CHEST DISCOMFORT TAKING SENNA PLUS 8.6-50 MG TABLET 1 TABLET ORALLY ONCE A DAY TAKING TRAMADOL HCL 50 MG TABLET 1 TABLET NEEDED ORALLY EVERY 6 HRS PRN MDD4 TAKING ENTRESTO 97-103 MG TABLET 1 TABLET ORALLY TWICE A DAY TAKING LEVOTHYROXINE SODIUM 75 MCG TABLET 1 TABLET ON AN EMPTY STOMACH IN THE MORNING ORALLY ONCE A DAY TAKING OXYCODONE-ACETAMINOPHEN 5-325 MG TABLET 1 TABLET EVERY 8 HOURS NEEDED ORALLY 1 TAB Q8H PRN MDD3 #60 TAB SHOULD LAST 30 DAYS TAKING NUCYNTA 75 MG TABLET 1 TABLET ORALLY EVERY 6 HRS PRN PAIN MDD=2 TAKING CYCLOBENZAPRINE HCL 10 MG TABLET 1 TABLET ORALLY BID TAKING COLACE 100 MG CAPSULE 1 CAPSULE ORALLY BID NOT-TAKING TAMSULOSIN HCL 0.4 MG CAPSULE EXTENDED RELEASE ORALLY DAILY NOT-TAKING ISOSORBIDE MONONITRATE ER 30 MG TABLET EXTENDED RELEASE 24 HOUR 1 TABLET ORALLY ONCE A DAY NOT-TAKING TESTOSTERONE CYPIONATE 100 MG/ML SOLUTION 1 ML INTRAMUSCULAR Q 2 WEEKS NOT-TAKING MOVANTIK 25 MG TABLET 1 TABLET IN THE MORNING ORALLY ONCE A DAY MEDICATION LIST REVIEWED AND RECONCILED WITH THE PATIENT PAST MEDICAL HISTORY HYPERTENSION HEART ATTACK HYPERCHOLESTEROLEMIA SHOULDER PAIN-BILATERAL ARTHRITS NECK PAIN ALLERGIES AMOXICILLIN: RASH METHOTREXATE: HEADACHES SURGICAL HISTORY BILALTERAL SHOULDER SURGERY CARDIAC STENTS X3 I & D SCROTAL MASS SPINAL FUSION C4,C5,C6 08/2017 LEFT SHOULDER REPLACEMENT 04/2019 FAMILY HISTORY FATHER: , DIAGNOSED WITH UNSPECIFIED CEREBRAL ARTERY OCCLUSION WITH CEREBRAL INFARCTION MOTHER: , DIABETES, HYPERTENSION, UNSPECIFIED HEART DISEASE 2 SON(S) , 2 DAUGHTER(S) . MOM-HYPERPERLIPEDEMIA\\NOLDEST DAUGHTER-DIABETIC,HTN, HPERLIPEMEDIA\\NSISTER AND OLDER BROTHER- HEART DISEASE. SOCIAL HISTORY GENERAL: TOBACCO USE ARE YOU A:FORMER SMOKER HOW LONG HAS IT BEEN SINCE YOU LAST SMOKED?> 10 YEARS EDUCATION LEVEL OF EDUCATION:[employer] LANGUAGE LANGUAGES SPOKEN:POLISH DOMESTIC VIOLENCE DO YOU FEEL SAFE IN YOUR ENVIRONMENT?YES NEW PATIENT PAIN DIARY TODAY'S VISITNOTES RECREATIONAL DRUG USE DRUG USE?NO LEARNING BARRIERS / SPECIAL NEEDS CHANGE FROM LAST VISIT?NO BARRIERS TO LEARNING?NO HEARING IMPAIRED?NO VISION IMPAIRED?YES COGNITIVELY IMPAIRED?NO :CORRECTIVE LENSES READINESS TO LEARN?NO LEARNING PREFERENCES?NO LEARNING CAPABILITIES PRESENT?YES EMOTIONAL BARRIERS?NO SPECIAL DEVICES?NO [employer]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 CLINIC PFS, CLERGY, PUBLIC HEALTH REFERRALS PFS REFERRAL NEEDED?NO CLERGY REFERRAL NEEDED?NO PUBLIC HEALTH REFERRAL NEEDED?NO WAS THE PROVIDER NOTIFIED OF ANY PERTINENT INFO?YES N/A HAS THE PATIENT BEEN EDUCATED REGARDING HIS/HER PLAN OF CARE?YES HAS THE PATIENT BEEN EDUCATED REGARDING PAIN, THE RISK FOR PAIN, THE IMPORTANCE OF EFFECTIVE PAIN MANAGEMENT, AND THE PAIN ASSESSMENT PROCESS?YES LATEX QUESTIONNAIRE LATEX ALLERGY : HAVE YOU EVER DEVELOPED ANY TYPE OF REACTION AFTER HANDLING LATEX PRODUCTS SUCH RUBBER GLOVES, CONDOMS, DIAPHRAGMS, BALLOONS, SOCKS, OR UNDERWEAR?NO LATEX ALLERGY : HAVE YOU EVER DEVELOPED ANY TYPE OF REACTION DURING OR AFTER DENTAL APPOINTMENT, VAGINAL/RECTAL EXAMINATION, SURGICAL PROCEDURE, OR ANY OTHER EXPOSURE?NO LATEX RISK : HAVE YOU EVER HAD ANY DIFFICULTY BREATHING OR HIVES AFTER EATING OR HANDLING ANY FRUITS, OR VEGETABLES; SUCH KIWI, BANANAS, STONE FRUITS, OR CHESTNUTSNO LATEX RISK : DO YOU HAVE A PREVIOUS PERSONAL HISTORY OF MORE THAN NINE SURGERIES, SPINA BIFIDA, OR REPEATED CATHERIZATIONS? NO LATEX RISK : ARE YOU FREQUENTLY EXPOSED TO LATEX PRODUCTS IN YOUR OCCUPATION?NO DATE ASKED : 07/09/2019 CAFFEINE CAFFEINE USE?YES HOW OFTEN AND HOW MUCH? 3CUPS COFFEE/DAY ADVANCE DIRECTIVE ADVANCE DIRECTIVE DISCUSSED WITH PATIENT:YES [facility] [phone](C) RESTORATIONISM [id number] [place] ALCOHOL SCREENING DID YOU HAVE A DRINK CONTAINING ALCOHOL IN THE PAST YEAR?NO POINTS0 INTERPRETATIONNEGATIVE 04/02/18 0905 REVIEWED WITH PT. ADREVIEWED WITH PT 07/03/18 0958 BVREVIEWED WITH PATIENT 04/08/19 0857 JSREVIEWED WITH PATIENT 07/09/2019 DS. HOSPITALIZATION/MAJOR DIAGNOSTIC PROCEDURE SCROTAL MASS CARDIAC STENTS 2013 NECK FUSION 08/2017 REVIEW OF SYSTEMS REVIEWED BY: PROVIDER: LUCIEN COUCH . CONSTITUTIONAL: ANY CHANGE IN YOUR MEDICAL CONDITION? NO . CHILLS NO . FEVER NO . INFECTION: DO YOU HAVE NEW INFECTIONS? NO . DO YOU HAVE HISTORY OF MRSA? NO . MUSCULOSKELETAL: ANY NEW PATTERNS OF PAIN OR NUMBNESS? YES, SURGERY ON LEFT SHOULDER, PAIN CHANGES IN SHOULDER SINCE SURGERY, CONTINUING WITH PHYSICAL THERAPY . GASTROENTEROLOGY: ANY NEW CHANGE IN BOWEL CONTROL? NO . GENITOURINARY: ANY NEW CHANGE IN BLADDER CONTROL? NO . IS THERE A CHANCE YOU COULD BE ? NO . HEMATOLOGY/LYMPH: DO YOU TAKE ANY BLOOD THINNERS? (FOR EXAMPLE- COUMADIN, PLAVIX, AGGRENOX, PLATEL, PRADAXA, OR XARELTO) YES, PLAVIX . WHEN WAS YOUR LAST DOSE? DATE: TIME: . NEUROLOGY: HAVE YOU FALLEN IN THE PAST 12 MONTHS? NO . ANY NEW EXTREMITY NUMBNESS OR WEAKNESS? NO . CARDIOLOGY: DO YOU HAVE A PACEMAKER OR DEFIBRILLATOR? NO . RESPIRATORY: HAVE YOU BEEN SICK IN THE PAST WEEK? YES, FEVER AND , SYMPTOMS HAVE RESOLVED . FEVER NO . FLU LIKE SYMPTOMS? NO . COUGH NO . INTEGUMENTARY: DO YOU HAVE ANY RASHES OR OPEN SORES? NO . ALLERGIC/IMMUNO: ARE YOU ALLERGIC TO IV DYE? NO . ANY NEW ALLERGIES? NO . PSYCHIATRIC: DO YOU HAVE THOUGHTS OF HURTING YOURSELF OR SOMEONE ELSE? NO . ARE YOU ABUSED, NEGLECTED, OR IN AN UNSAFE ENVIRONMENT? NO . ENDOCRINOLOGY: ARE YOU DIABETIC? NO . OTHER: DO YOU NEED ANY PRESCRIPTIONS? YES, PERCOCET AND ULTRAM . IF YES, PLEASE LIST: ____ . ANY NEW PROBLEMS WITH YOUR MEDICATIONS? NO . WHEN DID YOU LAST EAT? ____ . WHEN DID YOU LAST DRINK? ____ . WHAT DID YOU LAST DRINK? ____ . NAME OF PERSON DRIVING YOU HOME? ____ . DO YOU HAVE ANY OTHER QUESTIONS OR CONCERNS NO . VITAL SIGNS WT 194.4 LBS, HT 66 IN, BMI 31.37 INDEX, BP 126/63 MM HG, HR 55 /MIN, RR 18 /MIN, TEMP 96.5 F, OXYGEN SAT % 97, SAFE IN ENV? (Y/N) Y, REVIEWED BY: FREDI. EXAMINATION GENERAL EXAMINATION: GENERALNO ACUTE DISTRESS, WELL NOURISHED AND HYDRATED. PSYCHAPPROPRIATE MOOD AND AFFECT . LUNGS:CLEAR TO AUSCULTATION BILATERALLY, NO WHEEZES, RHONCHI, RALES. HEART:NO MURMURS, REGULAR RATE AND RHYTHM. ASSESSMENTS CERVICAL POST-LAMINECTOMY SYNDROME - M96.1 (PRIMARY) CHRONIC PRESCRIPTION OPIATE USE - Z79.891 TREATMENT CERVICAL POST-LAMINECTOMY SYNDROME STOP TRAMADOL HCL TABLET, 50 MG, 1 TABLET NEEDED, ORALLY, EVERY 6 HRS PRN MDD4 REFILL NUCYNTA TABLET, 75 MG, 1 TABLET, ORALLY, EVERY 6 HRS PRN PAIN MDD=2, 30 DAY(S), 60, REFILLS 0 REFILL CYCLOBENZAPRINE HCL TABLET, 10 MG, 1 TABLET, ORALLY, BID, 30 DAYS, 60 TABLET, REFILLS 3 REFILL COLACE CAPSULE, 100 MG, 1 CAPSULE, ORALLY, BID, 30 DAYS, 60 CAPSULE, REFILLS 3 REFILL OXYCODONE-ACETAMINOPHEN TABLET, 5-325 MG, 1 TABLET EVERY 8 HOURS NEEDED, ORALLY, 1 TAB Q8H PRN MDD3 #60 TAB SHOULD LAST 30 DAYS, 30 DAYS, 60, REFILLS 0 CLINICAL NOTES: 64-YEAR-OLD MALE IN FOR CHRONIC PAIN FOLLOW-UP. GIVEN PRESENTING SYMPTOMS AND RESULTS OF PHYSICAL EXAMINATION RECOMMENDED RESTARTING CHRONIC PAIN MEDICATIONS WITH FOLLOW-UP IN 2 MONTHS TO DETERMINE EFFICACY OF TREATMENT. PATIENT HAS EXPRESSED UNDERSTANDING OF AND WAS IN AGREEMENT WITH TREATMENT PLAN. GIVEN TIME TO ASK QUESTIONS AND EXPRESS CONCERNS., ISTOP REGISTRY REVIEWED AND DEMONSTRATES COMPLLIANCE. (REF # [id number] ) BRINGS IN MEDICATIONS WHICH IS APPROPRIATE FOR WHAT WAS DISPENSED. RECENT URINE TOXICOLOGY REVIEWED. NO UNAUTHORIZED MEDICATIONS. NO ILLICIT SUBSTANCES AND PRESCRIBED MEDICATIONS WERE PRESENT. PREVENTIVE MEDICINE PAIN CLINIC TEACHING: THE PATIENT HAS BEEN EDUCATED REGARDING PAIN, THE RISK FOR PAIN, THE IMPORTANCE OF EFFECTIVE PAIN MANAGEMENT, AND THE PAIN ASSESSMENT PROCESS. : REVIEWED AND DISCUSSED TREATMENT PLAN WITH PATIENT, FOLLOW UP IN 2 MONTHS, PT ACKNOWLEDGED UNDERSTANDING. DS PROCEDURE CODES FA211 ESTABILISHED PATIENT FORMERLY [facility] CHARGE DISPOSITION & COMMUNICATION FOLLOW UP 2 MONTHS (REASON: NECK PAIN) ELECTRONICALLY SIGNED BY ALIZE ADAIR ON 07/10/2019 AT 08:06 AM EST DISCLAIMER : THIS IS A VISIT SUMMARY EXTRACTED FROM THE [employer] CHART. IT IS NOT A COPY OF THE [employer] PROGRESS NOTE. MARI
== END ==
LOC: M PAIN 08:45
PROVIDERS: ATTEND Family Medicine
DX: M96.1 Postlaminectomy syndrome, not elsewhere classified (principal); I10 Essential (primary) hypertension; E78.00 Pure hypercholesterolemia, unspecified; Z96.612 Presence of left artificial shoulder joint; Z87.891 Personal history of nicotine dependence; Z88.1 Allergy status to other antibiotic agents; Z88.6 Allergy status to analgesic agent; Z79.01 Long term (current) use of anticoagulants; Z79.82 Long term (current) use of aspirin; Z79.891 Long term (current) use of opiate analgesic; Z79.899 Other long term (current) drug therapy

== ENCOUNTER → 2019-09-04 | Outpatient (CLI) | payer BC ==
--- NOTE | 2019-09-04 17:46 | REP ---
HISTORY: History of bronchitis. FINDINGS: The superior mediastinal structures are midline. The cardiac silhouette is unremarkable in size, shape and position. The diaphragmatic surfaces of the lungs are regular and the costophrenic angles are clear. The pulmonary candelario are clear. The imaged osseous structures are intact. IMPRESSION: There is no acute cardiopulmonary disease. Electronically Signed by Dagoberto Lynn DO 09/04/2019 06:33 P
== END ==
LOC: M WUC 15:00
PROVIDERS: ATTEND Family Medicine
DX: J40 Bronchitis, not specified as acute or chronic (principal)

== ENCOUNTER → 2019-10-01 | Outpatient (CLI) | payer BC ==
[~2019-10-01] MED LIST changes: +CYCL-707 PO; -CYCL10TA PO
--- NOTE | 2019-10-03 01:12 | ECWPNPC ---
PATIENT NAME: KAYLAN MCKOY : 1955 GENDER: MALE VISIT DATE: 10/01/2019 DISCHARGE DATE: 10/01/19 1035 VISIT LOCKED DATE TIME: PHYSICIAN: OSVALDO MCKINNEY RESOURCE: OSVALDO MCKINNEY REASON FOR APPOINTMENT 1. 2 MONTH FOLLOW UP HISTORY OF PRESENT ILLNESS .: NOTES: PT REPORTS HIS PAIN LEVEL IS A 4/10 IN LEFT SHOULDER. HE REPORTS HE HAS BEEN GOING TO PHYSICAL THERAPY, WHICH HAS BECOME MORE INTENSE AND IT IS INCREASING HIS PAIN. HE IS USING ICE AND HEAT. OCCASIONALLY HIS PAIN IS AN 8. DESCRIBED ACHING, SORE AND TENDER. LAS. PERMISSION REQUESTED AND RECEIVED FROM PATIENT TO PERFORM TELE HEALTH VISIT. 64 YEAR OLD MALE IN FOR CHRONIC PAIN FOLLOW UP. HE RATES HIS PAIN CURRENTLY AT A 4/10. HE FEELS HIS MEDICATIONS ARE WORKING WELL AND DENIES MED SIDE EFFECTS AT THIS TIME. HE DOES ADMIT TO SOME HIP PAIN. HISTORY OF PRESENT ILLNESS: PAIN THE PATIENT DESCRIBES THE PAIN... FALL RISK SCREENING: SCREENING :NO FALLS REPORTED IN THE LAST YEAR CURRENT MEDICATIONS TAKING CARVEDILOL 3.125 MG TABLET 1 TABLET WITH FOOD ORALLY TWICE A DAY TAKING CRESTOR 40 MG TABLET 1 TABLET ORALLY ONCE A DAY TAKING SPIRONOLACTONE 25 MG TABLET 1/2 TABLET ORALLY ONCE A DAY TAKING PANTOPRAZOLE SODIUM 40 MG TABLET DELAYED RELEASE 1 TABLET ORALLY ONCE A DAY TAKING PLAVIX 75 MG TABLET 1 TABLET ORALLY ONCE A DAY TAKING MAGNESIUM 400 MG CAPSULE ORALLY TWICE A DAY TAKING VITAMIN D 2000 UNIT TABLET ORALLY BID TAKING MULTIPLE VITAMIN TABLET 1 TABLET ORALLY ONCE A DAY TAKING ASPIRIN 325 MG TABLET 1 TABLET ORALLY ONCE A DAY TAKING NITROGLYCERIN 0.4 MG TABLET SUBLINGUAL SUBLINGUAL DIRECTED FOR CHEST DISCOMFORT TAKING SENNA PLUS 8.6-50 MG TABLET 1 TABLET ORALLY ONCE A DAY TAKING ENTRESTO 97-103 MG TABLET 1 TABLET ORALLY TWICE A DAY TAKING LEVOTHYROXINE SODIUM 75 MCG TABLET 1 TABLET ON AN EMPTY STOMACH IN THE MORNING ORALLY ONCE A DAY TAKING CYCLOBENZAPRINE HCL 10 MG TABLET 1 TABLET ORALLY BID TAKING COLACE 100 MG CAPSULE 1 CAPSULE ORALLY BID TAKING NUCYNTA 75 MG TABLET 1 TABLET ORALLY EVERY 6 HRS PRN PAIN MDD=2 TAKING OXYCODONE-ACETAMINOPHEN 5-325 MG TABLET 1 TABLET EVERY 8 HOURS NEEDED ORALLY 1 TAB Q8H PRN MDD3 #60 TAB SHOULD LAST 30 DAYS NOT-TAKING TAMSULOSIN HCL 0.4 MG CAPSULE EXTENDED RELEASE ORALLY DAILY NOT-TAKING ISOSORBIDE MONONITRATE ER 30 MG TABLET EXTENDED RELEASE 24 HOUR 1 TABLET ORALLY ONCE A DAY NOT-TAKING TESTOSTERONE CYPIONATE 100 MG/ML SOLUTION 1 ML INTRAMUSCULAR Q 2 WEEKS NOT-TAKING MOVANTIK 25 MG TABLET 1 TABLET IN THE MORNING ORALLY ONCE A DAY MEDICATION LIST REVIEWED AND RECONCILED WITH THE PATIENT PAST MEDICAL HISTORY HYPERTENSION HEART ATTACK HYPERCHOLESTEROLEMIA SHOULDER PAIN-BILATERAL ARTHRITS NECK PAIN ALLERGIES AMOXICILLIN: RASH METHOTREXATE: HEADACHES SURGICAL HISTORY BILALTERAL SHOULDER SURGERY CARDIAC STENTS X3 I & D SCROTAL MASS SPINAL FUSION C4,C5,C6 08/2017 LEFT SHOULDER REPLACEMENT 04/2019 FAMILY HISTORY FATHER: , DIAGNOSED WITH UNSPECIFIED CEREBRAL ARTERY OCCLUSION WITH CEREBRAL INFARCTION MOTHER: , HYPERTENSION, UNSPECIFIED HEART DISEASE, DIABETES 2 SON(S) , 2 DAUGHTER(S) . MOM-HYPERPERLIPEDEMIA\\NOLDEST DAUGHTER-DIABETIC,HTN, HPERLIPEMEDIA\\NSISTER AND OLDER BROTHER- HEART DISEASE. SOCIAL HISTORY GENERAL: TOBACCO USE ARE YOU A:FORMER SMOKER HOW LONG HAS IT BEEN SINCE YOU LAST SMOKED?> 10 YEARS LATEX QUESTIONNAIRE LATEX ALLERGY : HAVE YOU EVER DEVELOPED ANY TYPE OF REACTION AFTER HANDLING LATEX PRODUCTS SUCH RUBBER GLOVES, CONDOMS, DIAPHRAGMS, BALLOONS, SOCKS, OR UNDERWEAR?NO LATEX ALLERGY : HAVE YOU EVER DEVELOPED ANY TYPE OF REACTION DURING OR AFTER DENTAL APPOINTMENT, VAGINAL/RECTAL EXAMINATION, SURGICAL PROCEDURE, OR ANY OTHER EXPOSURE?NO DATE ASKED : 07/09/2019 LATEX RISK : HAVE YOU EVER HAD ANY DIFFICULTY BREATHING OR HIVES AFTER EATING OR HANDLING ANY FRUITS, OR VEGETABLES; SUCH KIWI, BANANAS, STONE FRUITS, OR CHESTNUTSNO LATEX RISK : DO YOU HAVE A PREVIOUS PERSONAL HISTORY OF MORE THAN NINE SURGERIES, SPINA BIFIDA, OR REPEATED CATHERIZATIONS? NO LATEX RISK : ARE YOU FREQUENTLY EXPOSED TO LATEX PRODUCTS IN YOUR OCCUPATION?NO ALCOHOL SCREENING DID YOU HAVE A DRINK CONTAINING ALCOHOL IN THE PAST YEAR?NO POINTS0 INTERPRETATIONNEGATIVE RECREATIONAL DRUG USE DRUG USE?NO CAFFEINE CAFFEINE USE?YES HOW OFTEN AND HOW MUCH? 3CUPS COFFEE/DAY TEMPLE [id number] [employer] LANGUAGE LANGUAGES SPOKEN:SERBIAN EDUCATION LEVEL OF EDUCATION:COLLEGE ASSOSSIATES LEARNING BARRIERS / SPECIAL NEEDS CHANGE FROM LAST VISIT?NO BARRIERS TO LEARNING?NO HEARING IMPAIRED?NO VISION IMPAIRED?YES :CORRECTIVE LENSES COGNITIVELY IMPAIRED?NO READINESS TO LEARN?NO LEARNING PREFERENCES?NO LEARNING CAPABILITIES PRESENT?YES EMOTIONAL BARRIERS?NO SPECIAL DEVICES?NO POWERHOUSE MECHANIC SUPERVISOR NEEDED?NO DOMESTIC VIOLENCE DO YOU FEEL SAFE IN YOUR ENVIRONMENT?YES NEW PATIENT PAIN DIARY TODAY'S VISITNOTES PAIN CLINIC PFS, CLERGY, PUBLIC HEALTH REFERRALS PFS REFERRAL NEEDED?NO CLERGY REFERRAL NEEDED?NO PUBLIC HEALTH REFERRAL NEEDED?NO WAS THE PROVIDER NOTIFIED OF ANY PERTINENT INFO?YES N/A HAS THE PATIENT BEEN EDUCATED REGARDING HIS/HER PLAN OF CARE?YES HAS THE PATIENT BEEN EDUCATED REGARDING PAIN, THE RISK FOR PAIN, THE IMPORTANCE OF EFFECTIVE PAIN MANAGEMENT, AND THE PAIN ASSESSMENT PROCESS?YES ADVANCE DIRECTIVE ADVANCE DIRECTIVE DISCUSSED WITH PATIENT:YES HCP-[facility] [phone](C) HOSPITALIZATION/MAJOR DIAGNOSTIC PROCEDURE SCROTAL MASS CARDIAC STENTS 2012 NECK FUSION 08/2017 REVIEW OF SYSTEMS REVIEWED BY: PROVIDER: LUCIEN MCKINNEY LOCK TENDER CHIEF OPERATOR-C . CONSTITUTIONAL: ANY CHANGE IN YOUR MEDICAL CONDITION? NO . CHILLS NO . FEVER NO . INFECTION: DO YOU HAVE NEW INFECTIONS? YES RECENT PNEUMONIA/ BRONCHITIS . DO YOU HAVE HISTORY OF MRSA? NO . MUSCULOSKELETAL: ANY NEW PATTERNS OF PAIN OR NUMBNESS? YES PT REPORTS HIP PAIN, TREATED WITH HEAT . GASTROENTEROLOGY: ANY NEW CHANGE IN BOWEL CONTROL? NO . GENITOURINARY: ANY NEW CHANGE IN BLADDER CONTROL? NO . IS THERE A CHANCE YOU COULD BE ? NO . HEMATOLOGY/LYMPH: DO YOU TAKE ANY BLOOD THINNERS? (FOR EXAMPLE- COUMADIN, PLAVIX, AGGRENOX, PLATEL, PRADAXA, OR XARELTO) YES PLAVIX . WHEN WAS YOUR LAST DOSE? DATE: TIME: . NEUROLOGY: HAVE YOU FALLEN IN THE PAST 12 MONTHS? NO . ANY NEW EXTREMITY NUMBNESS OR WEAKNESS? NO . CARDIOLOGY: DO YOU HAVE A PACEMAKER OR DEFIBRILLATOR? NO . RESPIRATORY: HAVE YOU BEEN SICK IN THE PAST WEEK? NO . FEVER NO . FLU LIKE SYMPTOMS? NO . COUGH CONSTANT COUGH SINCE JULY, DIAGNOSED WITH WALKING PNEUMONIA AND TREATED WITH A Z-PAC, AND THEN ROCEPHIN, STILL COUGHING. . INTEGUMENTARY: DO YOU HAVE ANY RASHES OR OPEN SORES? NO . ALLERGIC/IMMUNO: ARE YOU ALLERGIC TO IV DYE? NO . ANY NEW ALLERGIES? NO . PSYCHIATRIC: DO YOU HAVE THOUGHTS OF HURTING YOURSELF OR SOMEONE ELSE? NO . ARE YOU ABUSED, NEGLECTED, OR IN AN UNSAFE ENVIRONMENT? NO . ENDOCRINOLOGY: ARE YOU DIABETIC? NO . OTHER: DO YOU NEED ANY PRESCRIPTIONS? NO . IF YES, PLEASE LIST: ____ . ANY NEW PROBLEMS WITH YOUR MEDICATIONS? NO . WHEN DID YOU LAST EAT? ____ . WHEN DID YOU LAST DRINK? ____ . WHAT DID YOU LAST DRINK? ____ . NAME OF PERSON DRIVING YOU HOME? ____ . DO YOU HAVE ANY OTHER QUESTIONS OR CONCERNS NO . EXAMINATION GENERAL EXAMINATION: PSYCHAPPROPRIATE MOOD AND AFFECT , ORIENTED X 3 . ASSESSMENTS CERVICAL POST-LAMINECTOMY SYNDROME - M96.1 (PRIMARY) TREATMENT CERVICAL POST-LAMINECTOMY SYNDROME CLINICAL NOTES: 64 YEAR OLD MALE IN FOR CHRONIC PAIN FOLLOW UP. GIVEN PRESENTING SYMPTOMS RECOMMEND CONTINUATION OF CURRENT MEDICATION REGIMEN WITH FOLLOW UP IN 3 MONTHS. ENCOURAGED PATIENT TO DISCUSS HIP PAIN WITH HIS PCP. PATIENT HAS EXPRESSED UNDERSTANDING OF AND WAS IN AGREEMENT WITH TX PLAN. GIVEN TIME TO ASK QUESTIONS AND EXPRESS CONCERNS. , ISTOP REGISTRY REVIEWED AND DEMONSTRATES COMPLIANCE. (REF #[id number] ) BRINGS IN MEDICATIONS WHICH IS APPROPRIATE FOR WHAT WAS DISPENSED. RECENT URINE TOXICOLOGY REVIEWED. NO UNAUTHORIZED MEDICATIONS. NO ILLICIT SUBSTANCES AND PRESCRIBED MEDICATIONS WERE PRESENT. VISIT TO BE BILLED BASED ON TIME SPENT WITH PATIENT. TIME SPENT WITH PATIENT 11 MINUTES. . OTHERS NOTES: NO VITAL SIGNS TAKEN, THIS IS A TELEPHONE VISIT. DISPOSITION & COMMUNICATION FOLLOW UP 3 MONTHS (REASON: NECK PAIN ) ELECTRONICALLY SIGNED BY ALIZE ADAIR ON 10/02/2019 AT 08:02 AM EDT DISCLAIMER : THIS IS A VISIT SUMMARY EXTRACTED FROM THE [employer] CHART. IT IS NOT A COPY OF THE [employer] PROGRESS NOTE. MARI
== END ==
LOC: M PAIN 10:00
PROVIDERS: ATTEND Family Medicine
DX: M96.1 Postlaminectomy syndrome, not elsewhere classified (principal); I10 Essential (primary) hypertension; Z96.612 Presence of left artificial shoulder joint; Z87.891 Personal history of nicotine dependence; Z88.1 Allergy status to other antibiotic agents; Z88.8 Allergy status to other drugs, medicaments and biological substances; Z79.01 Long term (current) use of anticoagulants; Z79.82 Long term (current) use of aspirin; Z79.899 Other long term (current) drug therapy

== ENCOUNTER → 2020-02-03 | Outpatient (CLI) | payer BC ==
[~2020-02-03] MED LIST changes: +PANT40TA29 PO; -PANT40TA3 PO
== END ==
LOC: M PAIN 08:59
PROVIDERS: ATTEND Family Medicine
DX: M96.1 Postlaminectomy syndrome, not elsewhere classified (principal)

== ENCOUNTER → 2020-03-17 | Outpatient (CLI) | payer BC ==
[2020-03-17 07:21] LABS: HEMATOCRIT 40.8 % (42.0-52.0); HEMOGLOBIN 13.4 g/dl (13.5-17.5); MEAN CORPUSCULAR HEMOGLOBIN 30.6 pg (27.0-33.0); MEAN CORPUSCULAR HGB CONC 32.8 g/dl (32.0-36.5); MEAN CORPUSCULAR VOLUME 93.2 fl (80.0-96.0); PLATELET COUNT, AUTOMATED 214 10^3/uL (150-450); RED BLOOD COUNT 4.38 10^6/uL (4.30-6.10); WHITE BLOOD COUNT 4.1 10^3/uL (4.0-10.0)
[2020-03-17 07:51] LABS: ALBUMIN 3.8 GM/DL (3.2-5.2); ALT/SGPT 38 U/L (12-78); BILIRUBIN,TOTAL 0.5 MG/DL (0.2-1.0); BLOOD UREA NITROGEN 14 MG/DL (7-18); CALCIUM LEVEL 8.9 MG/DL (8.8-10.2); CARBON DIOXIDE LEVEL 30 MEQ/L (21-32); CHLORIDE LEVEL 108 MEQ/L (98-107); CHOLESTEROL LEVEL 170 MG/DL (<200); CHOLESTEROL RISK RATIO 4.594 (<5); CREATININE FOR GFR 1.01 MG/DL (0.70-1.30); GLOMERULAR FILTRATION RATE > 60.0 (>49); GLUCOSE, FASTING 129 MG/DL (70-100); HDL CHOLESTEROL 37 MG/DL (>40); LDL CHOLESTEROL 84 MG/DL (<100); NON-HDL-C 133 MG/DL; POTASSIUM SERUM 4.4 MEQ/L (3.5-5.1); PROSTATIC SPECIFIC AG MONITOR 0.32 NG/ML (< 4.00); SODIUM LEVEL 142 MEQ/L (136-145); TRIGLYCERIDES LEVEL 244 MG/DL (<150)
[2020-03-17 08:44] LABS: TESTOSTERONE 317 NG/DL (241-827)
[2020-03-17 12:19] LABS: HEMOGLOBIN A1c 6.2 %
== END ==
LOC: M LAB 06:32
PROVIDERS: ATTEND Family Medicine
DX: E03.9 Hypothyroidism, unspecified (principal); I10 Essential (primary) hypertension; R53.83 Other fatigue

== ENCOUNTER → 2020-04-01 | Outpatient (CLI) | payer BC ==
--- NOTE | 2020-04-05 14:14 | ECWPNPC ---
PATIENT NAME: KAYLAN MCKOY : 1955 GENDER: MALE VISIT DATE: 04/01/2020 DISCHARGE DATE: 04/01/20 1030 VISIT LOCKED DATE TIME: PHYSICIAN: OSVALDO MCKINNEY RESOURCE: OSVALDO MCKINNEY REASON FOR APPOINTMENT 1. SHOULDER HISTORY OF PRESENT ILLNESS GENERAL: - 65-YEAR-OLD MALE IN FOR CHRONIC PAIN FOLLOW-UP. HE FEELS MEDICATIONS ARE HELPFUL AND DENIES MED SIDE EFFECTS AT THIS TIME. HE RATES HIS PAIN CURRENTLY AT A 4 OUT OF 10 AND DESCRIBES IT TENDER, SORE, AND SHOOTING. FALL RISK SCREENING: SCREENING :NO FALLS REPORTED IN THE LAST YEAR PAIN SCREENING: PATIENT HAS A COMPLAINT OF ACUTE OR CHRONIC PAIN :YES LOCATION OF PAIN:BOTH SHOULDERS INTENSITY OF PAIN (SCALE OF 1 TO 10):4 WHAT DOES YOUR PAIN FEEL LIKE:TENDER, SORE, SHOOTING DURATION:CONSTANT, AWAKENS FROM SLEEP PAIN IS INCREASED BY:ACTIVITIES PAIN IS DECREASED BY:USE OF PAIN MEDICATIONS NURSING NOTE: -. PAIN CENTER INTAKE QUESTIONS: DO YOU HAVE A HISTORY OF MRSA? :NO DO YOU TAKE A BLOOD THINNERS? :YES PLAVIX DO YOU HAVE ANY BLEEDING DISORDERS? :NO ANY NEW NUMBNESS OR WEAKNESS IN YOUR LEGS OR ARMS? :NO ANY PACEMAKER,DEFIBRILLATOR, OR DORSAL COLUMN STIMULATOR? :NO DO YOU HAVE ANY RASHES OR OPEN SORES? :NO ARE YOU ALLERGIC TO IV DYE? :NO ARE YOU DIABETIC? :NO ANY NEW PROBLEMS WITH YOUR MEDICATIONS? :NO HAVE YOU RECEIVED A VACCINE IN THE PAST 30 DAYS? :NO DO YOU PLAN TO RECEIVE A VACCINE IN THE NEXT 21 DAYS? :NO DO YOU NEED ANY PRESCRIPTION? :YES OXYCODONE DO YOU TAKE ANY IMMUNOSUPPRESSIVE MEDICATIONS? :NO IS THERE A CHANCE YOU COULD BE ? :NO ARE YOU BREAST FEEDING? :NO CURRENT MEDICATIONS TAKING ASPIRIN 325 MG TABLET 1 TABLET ORALLY ONCE A DAY TAKING CARVEDILOL 3.125 MG TABLET 1 TABLET WITH FOOD ORALLY TWICE A DAY TAKING COLACE 100 MG CAPSULE 1 CAPSULE ORALLY BID TAKING CRESTOR 40 MG TABLET 1 TABLET ORALLY ONCE A DAY TAKING CYCLOBENZAPRINE HCL 10 MG TABLET 1 TABLET ORALLY BID TAKING ENTRESTO 97-103 MG TABLET 1 TABLET ORALLY TWICE A DAY TAKING ISOSORBIDE MONONITRATE ER 30 MG TABLET EXTENDED RELEASE 24 HOUR 1 TABLET ORALLY ONCE A DAY TAKING LEVOTHYROXINE SODIUM 75 MCG TABLET 1 TABLET ON AN EMPTY STOMACH IN THE MORNING ORALLY ONCE A DAY TAKING MAGNESIUM 400 MG CAPSULE ORALLY TWICE A DAY TAKING MULTIPLE VITAMIN TABLET 1 TABLET ORALLY ONCE A DAY TAKING NITROGLYCERIN 0.4 MG TABLET SUBLINGUAL SUBLINGUAL DIRECTED FOR CHEST DISCOMFORT TAKING NUCYNTA 75 MG TABLET 1 TABLET ORALLY EVERY 6 HRS PRN PAIN MDD=2 TAKING PANTOPRAZOLE SODIUM 40 MG TABLET DELAYED RELEASE 1 TABLET ORALLY ONCE A DAY TAKING PLAVIX 75 MG TABLET 1 TABLET ORALLY ONCE A DAY TAKING SENNA PLUS 8.6-50 MG TABLET 1 TABLET ORALLY ONCE A DAY TAKING SPIRONOLACTONE 25 MG TABLET 1/2 TABLET ORALLY ONCE A DAY TAKING TAMSULOSIN HCL 0.4 MG CAPSULE EXTENDED RELEASE ORALLY DAILY TAKING VITAMIN D 2000 UNIT TABLET ORALLY BID TAKING OXYCODONE-ACETAMINOPHEN 7.5-325 MG TABLET 1 TABLET EVERY 8 HOURS NEEDED ORALLY 1 TAB Q8H PRN MDD3 #60 TAB SHOULD LAST 30 DAYS NOT-TAKING TESTOSTERONE CYPIONATE 100 MG/ML SOLUTION 1 ML INTRAMUSCULAR Q 2 WEEKS NOT-TAKING MOVANTIK 25 MG TABLET 1 TABLET IN THE MORNING ORALLY ONCE A DAY MEDICATION LIST REVIEWED AND RECONCILED WITH THE PATIENT PAST MEDICAL HISTORY HYPERTENSION HEART ATTACK HYPERCHOLESTEROLEMIA SHOULDER PAIN-BILATERAL ARTHRITS NECK PAIN ALLERGIES AMOXICILLIN: RASH METHOTREXATE: HEADACHES SURGICAL HISTORY BILALTERAL SHOULDER SURGERY CARDIAC STENTS X3 I & D SCROTAL MASS SPINAL FUSION C4,C5,C6 08/2017 LEFT SHOULDER REPLACEMENT 04/2019 FAMILY HISTORY FATHER: , DIAGNOSED WITH UNSPECIFIED CEREBRAL ARTERY OCCLUSION WITH CEREBRAL INFARCTION MOTHER: , HYPERTENSION, UNSPECIFIED HEART DISEASE, DIABETES 2 SON(S) , 2 DAUGHTER(S) . MOM-HYPERPERLIPEDEMIA\\NOLDEST DAUGHTER-DIABETIC,HTN, HPERLIPEMEDIA\\NSISTER AND OLDER BROTHER- HEART DISEASE. SOCIAL HISTORY GENERAL: TOBACCO USE ARE YOU A:FORMER SMOKER HOW LONG HAS IT BEEN SINCE YOU LAST SMOKED?> 10 YEARS LATEX QUESTIONNAIRE LATEX ALLERGY : HAVE YOU EVER DEVELOPED ANY TYPE OF REACTION AFTER HANDLING LATEX PRODUCTS SUCH RUBBER GLOVES, CONDOMS, DIAPHRAGMS, BALLOONS, SOCKS, OR UNDERWEAR?NO LATEX ALLERGY : HAVE YOU EVER DEVELOPED ANY TYPE OF REACTION DURING OR AFTER DENTAL APPOINTMENT, VAGINAL/RECTAL EXAMINATION, SURGICAL PROCEDURE, OR ANY OTHER EXPOSURE?NO LATEX RISK : HAVE YOU EVER HAD ANY DIFFICULTY BREATHING OR HIVES AFTER EATING OR HANDLING ANY FRUITS, OR VEGETABLES; SUCH KIWI, BANANAS, STONE FRUITS, OR CHESTNUTSNO LATEX RISK : DO YOU HAVE A PREVIOUS PERSONAL HISTORY OF MORE THAN NINE SURGERIES, SPINA BIFIDA, OR REPEATED CATHERIZATIONS? NO LATEX RISK : ARE YOU FREQUENTLY EXPOSED TO LATEX PRODUCTS IN YOUR OCCUPATION?NO DATE ASKED : 04/01/2020 ALCOHOL SCREENING DID YOU HAVE A DRINK CONTAINING ALCOHOL IN THE PAST YEAR?NO POINTS0 INTERPRETATIONNEGATIVE RECREATIONAL DRUG USE DRUG USE?NO CAFFEINE CAFFEINE USE?YES HOW OFTEN AND HOW MUCH? 3CUPS COFFEE/DAY SIKHISM [id number] EVANGELICAL LANGUAGE LANGUAGES SPOKEN:[place] EDUCATION LEVEL OF EDUCATION:COLLEGE ASSOSSIATES LEARNING BARRIERS / SPECIAL NEEDS CHANGE FROM LAST VISIT?NO BARRIERS TO LEARNING?NO HEARING IMPAIRED?NO VISION IMPAIRED?YES COGNITIVELY IMPAIRED?NO :CORRECTIVE LENSES READINESS TO LEARN?NO LEARNING PREFERENCES?NO LEARNING CAPABILITIES PRESENT?YES EMOTIONAL BARRIERS?NO SPECIAL DEVICES?NO [employer] ARCHITECT NEEDED?NO DOMESTIC VIOLENCE DO YOU FEEL SAFE IN YOUR ENVIRONMENT?YES NEW PATIENT PAIN DIARY TODAY'S VISITNOTES PAIN CLINIC PFS, CLERGY, PUBLIC HEALTH REFERRALS PFS REFERRAL NEEDED?NO CLERGY REFERRAL NEEDED?NO PUBLIC HEALTH REFERRAL NEEDED?NO WAS THE PROVIDER NOTIFIED OF ANY PERTINENT INFO?YES N/A HAS THE PATIENT BEEN EDUCATED REGARDING HIS/HER PLAN OF CARE?YES HAS THE PATIENT BEEN EDUCATED REGARDING PAIN, THE RISK FOR PAIN, THE IMPORTANCE OF EFFECTIVE PAIN MANAGEMENT, AND THE PAIN ASSESSMENT PROCESS?YES ADVANCE DIRECTIVE ADVANCE DIRECTIVE DISCUSSED WITH PATIENT:YES [facility] [phone](C) HOSPITALIZATION/MAJOR DIAGNOSTIC PROCEDURE SCROTAL MASS CARDIAC STENTS 2013 NECK FUSION 08/2017 REVIEW OF SYSTEMS CONSTITUTIONAL: ANY RECENT FEVER NO . CHILLS NO . WEIGHT CHANGE OF UNKNOWN REASONS NO . GASTROENTEROLOGY: NEW UNEXPLAINABLE CHANGES IN BOWEL CONTROL NO . CONSTIPATION NO . GENITOURINARY: ANY NEW CHANGE IN BLADDER CONTROL? NO . NEUROLOGY: NEW ONSET DIZZINESS OR NEUROLOGICAL CHANGES NOT MENTIONED NO . NEW NUMBNESS OR PAIN PATTERNS NOT MENTIONED AND PERTINENT TO TODAY'S VISIT NO . CARDIOLOGY: NEW CHEST PRESSURE NO . NEW CHEST PAIN NO . RESPIRATORY: UNEXPLAINABLE COUGH NO . NEW SHORTNESS OF BREATH NO . VITAL SIGNS WT 194.8 LBS, HT 66 IN, BMI 31.44 INDEX, BP 141/67 MM HG, HR 78 /MIN, RR 18 /MIN, TEMP 95.9 F, OXYGEN SAT % 98%, SAFE IN ENV? (Y/N) YES, NA INITIALS [id number], REVIEWED BY: DM. EXAMINATION GENERAL EXAMINATION: GENERALNO ACUTE DISTRESS, WELL NOURISHED AND HYDRATED. PSYCHAPPROPRIATE MOOD AND AFFECT . LUNGS:CLEAR TO AUSCULTATION BILATERALLY, NO WHEEZES, RHONCHI, RALES. HEART:NO MURMURS, REGULAR RATE AND RHYTHM. ASSESSMENTS CERVICAL DISC DISPLACEMENT - M50.20 (PRIMARY) TREATMENT CERVICAL DISC DISPLACEMENT REFILL OXYCODONE-ACETAMINOPHEN TABLET, 7.5-325 MG, 1 TABLET EVERY 8 HOURS NEEDED, ORALLY, 1 TAB Q8H PRN MDD3 #60 TAB SHOULD LAST 30 DAYS, 30 DAYS, 60, REFILLS 0 NOTES: DISCUSSED CARE PLAN WITH PATIENT, PATIENT VERBALIZES UNDERSTANDING. -COLE WALLACE CMA . CLINICAL NOTES: 65-YEAR-OLD MALE IN FOR CHRONIC PAIN FOLLOW-UP. GIVEN PRESENTING SYMPTOMS RECOMMENDED CONTINUATION OF CURRENT MEDICATION REGIMEN WITH FOLLOW-UP IN 2 MONTHS. PATIENT HAS EXPRESSED UNDERSTANDING OF AND WAS IN AGREEMENT WITH TREATMENT PLAN. GIVEN TIME TO ASK QUESTIONS AND EXPRESS CONCERNS. , ISTOP REGISTRY REVIEWED AND DEMONSTRATES COMPLLIANCE. (REF #[id number] ) BRINGS IN MEDICATIONS WHICH IS APPROPRIATE FOR WHAT WAS DISPENSED. RECENT URINE TOXICOLOGY REVIEWED. NO UNAUTHORIZED MEDICATIONS. NO ILLICIT SUBSTANCES AND PRESCRIBED MEDICATIONS WERE PRESENT. PROCEDURE CODES [id number] ESTABILISHED PATIENT [facility] CHARGE DISPOSITION & COMMUNICATION FOLLOW UP 2 MONTHS (REASON: NECK PAIN) ELECTRONICALLY SIGNED BY ALIZE ADAIR ON 04/05/2020 AT 10:28 AM EDT DISCLAIMER : THIS IS A VISIT SUMMARY EXTRACTED FROM THE [employer] CHART. IT IS NOT A COPY OF THE [employer] PROGRESS NOTE. MTDD
== END ==
LOC: M PAIN 09:45
PROVIDERS: ATTEND Family Medicine
DX: M50.20 Other cervical disc displacement, unspecified cervical region (principal); G89.29 Other chronic pain; I10 Essential (primary) hypertension; Z95.5 Presence of coronary angioplasty implant and graft; Z96.612 Presence of left artificial shoulder joint; Z87.891 Personal history of nicotine dependence; Z88.1 Allergy status to other antibiotic agents; Z88.8 Allergy status to other drugs, medicaments and biological substances; Z79.01 Long term (current) use of anticoagulants; Z79.82 Long term (current) use of aspirin; Z79.891 Long term (current) use of opiate analgesic; Z79.899 Other long term (current) drug therapy

== ENCOUNTER → 2020-04-29 | Outpatient (CLI) | payer BC ==
[2020-04-29 07:14] LABS: HEMATOCRIT 42.8 % (42.0-52.0); HEMOGLOBIN 14.4 g/dl (13.5-17.5); MEAN CORPUSCULAR HEMOGLOBIN 30.9 pg (27.0-33.0); MEAN CORPUSCULAR HGB CONC 33.6 g/dl (32.0-36.5); MEAN CORPUSCULAR VOLUME 91.8 fl (80.0-96.0); PLATELET COUNT, AUTOMATED 253 10^3/uL (150-450); RED BLOOD COUNT 4.66 10^6/uL (4.30-6.10); WHITE BLOOD COUNT 4.2 10^3/uL (4.0-10.0)
[2020-04-29 07:34] LABS: ALBUMIN 3.8 GM/DL (3.2-5.2); ALT/SGPT 47 U/L (12-78); BILIRUBIN,TOTAL 0.5 MG/DL (0.2-1.0); BLOOD UREA NITROGEN 15 MG/DL (7-18); CARBON DIOXIDE LEVEL 26 MEQ/L (21-32); CHLORIDE LEVEL 108 MEQ/L (98-107); CHOLESTEROL LEVEL 137 MG/DL (<200); CHOLESTEROL RISK RATIO 3.805 (<5); CREATININE FOR GFR 1.14 MG/DL (0.70-1.30); GLOMERULAR FILTRATION RATE > 60.0 (>49); GLUCOSE, FASTING 140 MG/DL (70-100); HDL CHOLESTEROL 36 MG/DL (>40); LDL CHOLESTEROL 67 MG/DL (<100); MAGNESIUM LEVEL 2.5 MG/DL (1.8-2.4); NON-HDL-C 101 MG/DL; POTASSIUM SERUM 4.4 MEQ/L (3.5-5.1); SODIUM LEVEL 141 MEQ/L (136-145); TOTAL PROTEIN 6.9 GM/DL (6.4-8.2); TRIGLYCERIDES LEVEL 172 MG/DL (<150)
== END ==
LOC: M LAB 06:14
PROVIDERS: ATTEND Physician Assistant
DX: I25.10 Atherosclerotic heart disease of native coronary artery without angina pectoris (principal); I25.5 Ischemic cardiomyopathy; E78.2 Mixed hyperlipidemia

== ENCOUNTER → 2020-06-01 | Outpatient (CLI) | payer BC ==
--- NOTE | 2020-06-03 05:23 | ECWPNPC ---
PATIENT NAME: KAYLAN MCKOY : 1955 GENDER: MALE VISIT DATE: 06/01/2020 DISCHARGE DATE: 06/01/20 1017 VISIT LOCKED DATE TIME: PHYSICIAN: OSVALDO MCKINNEY RESOURCE: OSVALDO MCKINNEY REASON FOR APPOINTMENT 1. NECK PAIN HISTORY OF PRESENT ILLNESS FALL RISK SCREENING: SCREENING :NO FALLS REPORTED IN THE LAST YEAR 65-YEAR-OLD MALE IN FOR CHRONIC PAIN FOLLOW-UP. HE FEELS THE MEDICATIONS ARE HELPFUL AND DENIES MED SIDE EFFECTS AT THIS TIME. HE RATES HIS PAIN CURRENTLY AT A 4 OUT OF 10 AND DESCRIBES IT ACHING, BURNING, SHARP, STABBING, TENDER, THROBBING, AND SORE. PAIN SCREENING: PATIENT HAS A COMPLAINT OF ACUTE OR CHRONIC PAIN :YES LOCATION OF PAIN:NECK, BOTH SHOULDERS INTENSITY OF PAIN (SCALE OF 1 TO 10):4 WHAT DOES YOUR PAIN FEEL LIKE:ACHING, BURNING, SHARP, STABBING, TENDER, THROBBING, SORE DURATION:CONTINOUS, CONSTANT, ALL DAY, AWAKENS FROM SLEEP PAIN IS INCREASED BY:ACTIVITIES TRY REACH OVER HEAD PAIN IS DECREASED BY:USE OF PAIN MEDICATIONS OXYCODONE, ICE PACK, LAYING DOWN NURSING NOTE: -. PAIN CENTER INTAKE QUESTIONS: DO YOU HAVE A HISTORY OF MRSA? :NO DO YOU TAKE A BLOOD THINNERS? :YES PLAVIX DO YOU HAVE ANY BLEEDING DISORDERS? :NO ANY NEW NUMBNESS OR WEAKNESS IN YOUR LEGS OR ARMS? :NO ANY PACEMAKER,DEFIBRILLATOR, OR DORSAL COLUMN STIMULATOR? :NO DO YOU HAVE ANY RASHES OR OPEN SORES? :NO ARE YOU ALLERGIC TO IV DYE? :NO ARE YOU DIABETIC? :NO ANY NEW PROBLEMS WITH YOUR MEDICATIONS? :NO HAVE YOU RECEIVED A VACCINE IN THE PAST 30 DAYS? :NO DO YOU PLAN TO RECEIVE A VACCINE IN THE NEXT 21 DAYS? :NO DO YOU NEED ANY PRESCRIPTION? :NO DO YOU TAKE ANY IMMUNOSUPPRESSIVE MEDICATIONS? :NO IS THERE A CHANCE YOU COULD BE ? :NO ARE YOU BREAST FEEDING? :NO CURRENT MEDICATIONS TAKING ASPIRIN 325 MG TABLET 1 TABLET ORALLY ONCE A DAY TAKING CARVEDILOL 3.125 MG TABLET 1 TABLET WITH FOOD ORALLY TWICE A DAY TAKING COLACE 100 MG CAPSULE 1 CAPSULE ORALLY BID TAKING CRESTOR 40 MG TABLET 1 TABLET ORALLY ONCE A DAY TAKING ENTRESTO 97-103 MG TABLET 1 TABLET ORALLY TWICE A DAY TAKING ISOSORBIDE MONONITRATE ER 30 MG TABLET EXTENDED RELEASE 24 HOUR 1 TABLET ORALLY ONCE A DAY TAKING LEVOTHYROXINE SODIUM 75 MCG TABLET 1 TABLET ON AN EMPTY STOMACH IN THE MORNING ORALLY ONCE A DAY TAKING MAGNESIUM 400 MG CAPSULE ORALLY TWICE A DAY TAKING MULTIPLE VITAMIN TABLET 1 TABLET ORALLY ONCE A DAY TAKING NITROGLYCERIN 0.4 MG TABLET SUBLINGUAL SUBLINGUAL DIRECTED FOR CHEST DISCOMFORT TAKING PANTOPRAZOLE SODIUM 40 MG TABLET DELAYED RELEASE 1 TABLET ORALLY ONCE A DAY TAKING PLAVIX 75 MG TABLET 1 TABLET ORALLY ONCE A DAY TAKING SENNA PLUS 8.6-50 MG TABLET 1 TABLET ORALLY ONCE A DAY TAKING SPIRONOLACTONE 25 MG TABLET 1/2 TABLET ORALLY ONCE A DAY TAKING TAMSULOSIN HCL 0.4 MG CAPSULE EXTENDED RELEASE ORALLY DAILY TAKING VITAMIN D 2000 UNIT TABLET ORALLY BID TAKING CYCLOBENZAPRINE HCL 10 MG TABLET 1 TABLET ORALLY BID TAKING OXYCODONE-ACETAMINOPHEN 7.5-325 MG TABLET 1 TABLET EVERY 8 HOURS NEEDED ORALLY 1 TAB Q8H PRN MDD3 #60 TAB SHOULD LAST 30 DAYS TAKING NUCYNTA 75 MG TABLET 1 TABLET ORALLY EVERY 6 HRS PRN PAIN MDD=2 NOT-TAKING TESTOSTERONE CYPIONATE 100 MG/ML SOLUTION 1 ML INTRAMUSCULAR Q 2 WEEKS NOT-TAKING MOVANTIK 25 MG TABLET 1 TABLET IN THE MORNING ORALLY ONCE A DAY MEDICATION LIST REVIEWED AND RECONCILED WITH THE PATIENT PAST MEDICAL HISTORY HYPERTENSION HEART ATTACK HYPERCHOLESTEROLEMIA SHOULDER PAIN-BILATERAL ARTHRITS NECK PAIN ALLERGIES AMOXICILLIN: RASH METHOTREXATE: HEADACHES SURGICAL HISTORY BILALTERAL SHOULDER SURGERY CARDIAC STENTS X3 I & D SCROTAL MASS SPINAL FUSION C4,C5,C6 08/2017 LEFT SHOULDER REPLACEMENT 04/2019 FAMILY HISTORY FATHER: , DIAGNOSED WITH UNSPECIFIED CEREBRAL ARTERY OCCLUSION WITH CEREBRAL INFARCTION MOTHER: , UNSPECIFIED HEART DISEASE, DIABETES, HYPERTENSION 2 SON(S) , 2 DAUGHTER(S) . MOM-HYPERPERLIPEDEMIA\\NOLDEST DAUGHTER-DIABETIC,HTN, HPERLIPEMEDIA\\NSISTER AND OLDER BROTHER- HEART DISEASE. SOCIAL HISTORY GENERAL: TOBACCO USE ARE YOU A:FORMER SMOKER HOW LONG HAS IT BEEN SINCE YOU LAST SMOKED?> 10 YEARS LATEX QUESTIONNAIRE LATEX ALLERGY : HAVE YOU EVER DEVELOPED ANY TYPE OF REACTION AFTER HANDLING LATEX PRODUCTS SUCH RUBBER GLOVES, CONDOMS, DIAPHRAGMS, BALLOONS, SOCKS, OR UNDERWEAR?NO LATEX ALLERGY : HAVE YOU EVER DEVELOPED ANY TYPE OF REACTION DURING OR AFTER DENTAL APPOINTMENT, VAGINAL/RECTAL EXAMINATION, SURGICAL PROCEDURE, OR ANY OTHER EXPOSURE?NO LATEX RISK : HAVE YOU EVER HAD ANY DIFFICULTY BREATHING OR HIVES AFTER EATING OR HANDLING ANY FRUITS, OR VEGETABLES; SUCH KIWI, BANANAS, STONE FRUITS, OR CHESTNUTSNO LATEX RISK : DO YOU HAVE A PREVIOUS PERSONAL HISTORY OF MORE THAN NINE SURGERIES, SPINA BIFIDA, OR REPEATED CATHERIZATIONS? NO LATEX RISK : ARE YOU FREQUENTLY EXPOSED TO LATEX PRODUCTS IN YOUR OCCUPATION?NO ALCOHOL SCREENING DID YOU HAVE A DRINK CONTAINING ALCOHOL IN THE PAST YEAR?NO POINTS0 INTERPRETATIONNEGATIVE RECREATIONAL DRUG USE DRUG USE?NO CAFFEINE CAFFEINE USE?YES HOW OFTEN AND HOW MUCH? 3CUPS COFFEE/DAY ALEVISM [id number] ANGLICAN LANGUAGE LANGUAGES SPOKEN:LUX[place] EDUCATION LEVEL OF EDUCATION:COLLEGE ASSOSSIATES LEARNING BARRIERS / SPECIAL NEEDS CHANGE FROM LAST VISIT?NO BARRIERS TO LEARNING?NO HEARING IMPAIRED?NO VISION IMPAIRED?YES :CORRECTIVE LENSES COGNITIVELY IMPAIRED?NO READINESS TO LEARN?NO LEARNING PREFERENCES?NO LEARNING CAPABILITIES PRESENT?YES EMOTIONAL BARRIERS?NO SPECIAL DEVICES?NO SPORTS BOOK WRITER NEEDED?NO TODAY'S VISITNOTES PAIN CLINIC PFS, CLERGY, PUBLIC HEALTH REFERRALS PFS REFERRAL NEEDED?NO CLERGY REFERRAL NEEDED?NO PUBLIC HEALTH REFERRAL NEEDED?NO WAS THE PROVIDER NOTIFIED OF ANY PERTINENT INFO?YES N/A HAS THE PATIENT BEEN EDUCATED REGARDING HIS/HER PLAN OF CARE?YES HAS THE PATIENT BEEN EDUCATED REGARDING PAIN, THE RISK FOR PAIN, THE IMPORTANCE OF EFFECTIVE PAIN MANAGEMENT, AND THE PAIN ASSESSMENT PROCESS?YES ADVANCE DIRECTIVE ADVANCE DIRECTIVE DISCUSSED WITH PATIENT:YES [facility] [phone](C) HOSPITALIZATION/MAJOR DIAGNOSTIC PROCEDURE SCROTAL MASS CARDIAC STENTS 2013 NECK FUSION 08/2017 REVIEW OF SYSTEMS CONSTITUTIONAL: ANY RECENT FEVER NO . CHILLS NO . WEIGHT CHANGE OF UNKNOWN REASONS NO . GASTROENTEROLOGY: NEW UNEXPLAINABLE CHANGES IN BOWEL CONTROL NO . CONSTIPATION NO . GENITOURINARY: ANY NEW CHANGE IN BLADDER CONTROL? NO . NEUROLOGY: NEW ONSET DIZZINESS OR NEUROLOGICAL CHANGES NOT MENTIONED NO . NEW NUMBNESS OR PAIN PATTERNS NOT MENTIONED AND PERTINENT TO TODAY'S VISIT NO . CARDIOLOGY: NEW CHEST PRESSURE NO . NEW CHEST PAIN NO . RESPIRATORY: UNEXPLAINABLE COUGH NO . NEW SHORTNESS OF BREATH NO . VITAL SIGNS WT 189.6 LBS, HT 66 IN, BMI 30.60 INDEX, BP 133/63 MM HG, HR 77 /MIN, RR 18 /MIN, TEMP 96.5 F, OXYGEN SAT % 98%, SAFE IN ENV? (Y/N) YES, NA INITIALS [place] 09:04, REVIEWED BY: VIJAY SPENCE. EXAMINATION GENERAL EXAMINATION: GENERALNO ACUTE DISTRESS, WELL NOURISHED AND HYDRATED. PSYCHAPPROPRIATE MOOD AND AFFECT . LUNGS:CLEAR TO AUSCULTATION BILATERALLY, NO WHEEZES, RHONCHI, RALES. HEART:NO MURMURS, REGULAR RATE AND RHYTHM. ASSESSMENTS CERVICAL POST-LAMINECTOMY SYNDROME - M96.1 (PRIMARY) TREATMENT CERVICAL POST-LAMINECTOMY SYNDROME LAB: PAIN CENTER URINE TOX (SEND OUT) NOTES: 65-YEAR-OLD MALE IN FOR CHRONIC PAIN FOLLOW-UP. GIVEN PRESENTING SYMPTOMS RECOMMEND CONTINUATION OF CURRENT MEDICATION REGIMEN WITH FOLLOW-UP IN 3 MONTHS. PATIENT EXPRESSED UNDERSTANDING OF WAS IN AGREEMENT WITH TREATMENT PLAN. GIVEN TIME TO ASK QUESTIONS AND EXPRESS CONCERNS. , ISTOP REGISTRY REVIEWED AND DEMONSTRATES COMPLLIANCE. (REF # ) BRINGS IN MEDICATIONS WHICH IS APPROPRIATE FOR WHAT WAS DISPENSED. RECENT URINE TOXICOLOGY REVIEWED. NO UNAUTHORIZED MEDICATIONS. NO ILLICIT SUBSTANCES AND PRESCRIBED MEDICATIONS WERE PRESENT. PROCEDURE CODES FA211 ESTABILISHED PATIENT [facility] CHARGE DISPOSITION & COMMUNICATION FOLLOW UP 3 MONTHS (REASON: NECK PAIN) ELECTRONICALLY SIGNED BY ALIZE ADAIR ON 06/02/2020 AT 01:06 PM EST DISCLAIMER : THIS IS A VISIT SUMMARY EXTRACTED FROM THE [employer] CHART. IT IS NOT A COPY OF THE [employer] PROGRESS NOTE. MARI
== END ==
LOC: M PAIN 09:00
PROVIDERS: ATTEND Family Medicine
DX: M96.1 Postlaminectomy syndrome, not elsewhere classified (principal); Z95.5 Presence of coronary angioplasty implant and graft; Z96.612 Presence of left artificial shoulder joint; Z87.891 Personal history of nicotine dependence; Z88.1 Allergy status to other antibiotic agents; Z88.8 Allergy status to other drugs, medicaments and biological substances; Z79.82 Long term (current) use of aspirin; Z79.01 Long term (current) use of anticoagulants; Z79.891 Long term (current) use of opiate analgesic; Z79.899 Other long term (current) drug therapy

== ENCOUNTER → 2020-08-31 | Outpatient (CLI) | payer BC ==
[~2020-08-31] MED LIST changes: +ISOS1TAB35 PO; -ISOS30TA4 PO; -LISI-542 PO; +LISI-898 PO; +METH-1164 PO; -METH1TAB40 PO
--- NOTE | 2020-09-02 06:04 | ECWPNPC ---
PATIENT NAME: KAYLAN MCKOY : 1955 GENDER: MALE VISIT DATE: 08/31/2020 DISCHARGE DATE: 08/31/2036 VISIT LOCKED DATE TIME: PHYSICIAN: OSVALDO MCKINNEY RESOURCE: OSVALDO MCKINNEY REASON FOR APPOINTMENT 1. 3 MONTH NECK PAIN HISTORY OF PRESENT ILLNESS DEPRESSION SCREENING: PHQ-2 (2015 EDITION) LITTLE INTEREST OR PLEASURE IN DOING THINGS?NOT AT ALL FEELING DOWN, DEPRESSED, OR HOPELESS?NOT AT ALL TOTAL SCORE0 65-YEAR-OLD MALE IN FOR CHRONIC PAIN FOLLOW-UP. HE RATES HIS PAIN CURRENTLY AT A 4 OUT OF 10 AND DESCRIBES IT ACHING, AND SHARP. HE FEELS MEDICATIONS ARE HELPFUL AND DENIES BEEN SIDE EFFECTS AT THIS TIME. PATIENT DOES ADMIT THAT HIS INSURANCE COMPANY WILL NO LONGER COVER HIS NUCYNTA. GENERAL: -. FALL RISK SCREENING: SCREENING : NO FALLS REPORTED IN THE LAST YEAR. PAIN SCREENING: PATIENT HAS A COMPLAINT OF ACUTE OR CHRONIC PAIN :YES LOCATION OF PAIN:BOTH SHOULDERS INTENSITY OF PAIN (SCALE OF 1 TO 10):4 WHAT DOES YOUR PAIN FEEL LIKE:ACHING, SHARP DURATION:INTERMITTENT PAIN IS INCREASED BY:ACTIVITIES, OTHERS LIFTING, OVERHEAD WORK WITH ARMS PAIN IS DECREASED BY:USE OF PAIN MEDICATIONS, OTHERS HEAT, ICE, TENS UNIT NURSING NOTE: -. PAIN CENTER INTAKE QUESTIONS: DO YOU HAVE A HISTORY OF MRSA? :NO DO YOU TAKE A BLOOD THINNERS? :YES PLAVIX AND ASPIRIN DO YOU HAVE ANY BLEEDING DISORDERS? :NO ANY NEW NUMBNESS OR WEAKNESS IN YOUR LEGS OR ARMS? :NO ANY PACEMAKER,DEFIBRILLATOR, OR DORSAL COLUMN STIMULATOR? :NO DO YOU HAVE ANY RASHES OR OPEN SORES? :NO ARE YOU ALLERGIC TO IV DYE? :NO ARE YOU DIABETIC? :NO ANY NEW PROBLEMS WITH YOUR MEDICATIONS? :NO HAVE YOU RECEIVED A VACCINE IN THE PAST 30 DAYS? :YES IF SO WHAT VACCINE AND WHEN? COVID VACCINE 20 DAYS AGO DO YOU PLAN TO RECEIVE A VACCINE IN THE NEXT 21 DAYS? :YES IF SO WHAT VACCINE AND WHEN? COVID 09/01/20 DO YOU NEED ANY PRESCRIPTION? :YES CYCLOBENZAPRINE DO YOU TAKE ANY IMMUNOSUPPRESSIVE MEDICATIONS? :NO DO YOU HAVE ANY KIDNEY OR LIVER DISEASE? :NO IS THERE A CHANCE YOU COULD BE ? :NO ARE YOU BREAST FEEDING? :NO CURRENT MEDICATIONS TAKING ASPIRIN 325 MG TABLET 1 TABLET ORALLY ONCE A DAY TAKING CARVEDILOL 3.125 MG TABLET 1 TABLET WITH FOOD ORALLY TWICE A DAY TAKING COLACE 100 MG CAPSULE 1 CAPSULE ORALLY BID TAKING CRESTOR 40 MG TABLET 1 TABLET ORALLY ONCE A DAY TAKING ENTRESTO 97-103 MG TABLET 1 TABLET ORALLY TWICE A DAY TAKING ISOSORBIDE MONONITRATE ER 30 MG TABLET EXTENDED RELEASE 24 HOUR 1 TABLET ORALLY ONCE A DAY TAKING LEVOTHYROXINE SODIUM 75 MCG TABLET 1 TABLET ON AN EMPTY STOMACH IN THE MORNING ORALLY ONCE A DAY TAKING MAGNESIUM 400 MG CAPSULE ORALLY TWICE A DAY TAKING MULTIPLE VITAMIN TABLET 1 TABLET ORALLY ONCE A DAY TAKING NITROGLYCERIN 0.4 MG TABLET SUBLINGUAL SUBLINGUAL DIRECTED FOR CHEST DISCOMFORT TAKING PANTOPRAZOLE SODIUM 40 MG TABLET DELAYED RELEASE 1 TABLET ORALLY ONCE A DAY TAKING PLAVIX 75 MG TABLET 1 TABLET ORALLY ONCE A DAY TAKING SENNA PLUS 8.6-50 MG TABLET 1 TABLET ORALLY ONCE A DAY TAKING SPIRONOLACTONE 25 MG TABLET 1/2 TABLET ORALLY ONCE A DAY TAKING TAMSULOSIN HCL 0.4 MG CAPSULE EXTENDED RELEASE ORALLY DAILY TAKING VITAMIN D 2000 UNIT TABLET ORALLY BID TAKING CYCLOBENZAPRINE HCL 10 MG TABLET 1 TABLET ORALLY BID TAKING NUCYNTA 75 MG TABLET 1 TABLET ORALLY EVERY 6 HRS PRN PAIN MDD=2 TAKING OXYCODONE-ACETAMINOPHEN 7.5-325 MG TABLET 1 TABLET EVERY 8 HOURS NEEDED ORALLY 1 TAB Q8H PRN MDD3 #60 TAB SHOULD LAST 30 DAYS NOT-TAKING TESTOSTERONE CYPIONATE 100 MG/ML SOLUTION 1 ML INTRAMUSCULAR Q 2 WEEKS NOT-TAKING MOVANTIK 25 MG TABLET 1 TABLET IN THE MORNING ORALLY ONCE A DAY MEDICATION LIST REVIEWED AND RECONCILED WITH THE PATIENT PAST MEDICAL HISTORY HYPERTENSION HEART ATTACK 2012 HYPERCHOLESTEROLEMIA SHOULDER PAIN-BILATERAL ARTHRITS NECK PAIN ALLERGIES AMOXICILLIN: RASH METHOTREXATE: HEADACHES SOCIAL HISTORY GENERAL: TOBACCO USE ARE YOU A:FORMER SMOKER HOW LONG HAS IT BEEN SINCE YOU LAST SMOKED?> 10 YEARS LATEX QUESTIONNAIRE LATEX ALLERGY : HAVE YOU EVER DEVELOPED ANY TYPE OF REACTION AFTER HANDLING LATEX PRODUCTS SUCH RUBBER GLOVES, CONDOMS, DIAPHRAGMS, BALLOONS, SOCKS, OR UNDERWEAR?NO LATEX ALLERGY : HAVE YOU EVER DEVELOPED ANY TYPE OF REACTION DURING OR AFTER DENTAL APPOINTMENT, VAGINAL/RECTAL EXAMINATION, SURGICAL PROCEDURE, OR ANY OTHER EXPOSURE?NO LATEX RISK : HAVE YOU EVER HAD ANY DIFFICULTY BREATHING OR HIVES AFTER EATING OR HANDLING ANY FRUITS, OR VEGETABLES; SUCH KIWI, BANANAS, STONE FRUITS, OR CHESTNUTSNO LATEX RISK : DO YOU HAVE A PREVIOUS PERSONAL HISTORY OF MORE THAN NINE SURGERIES, SPINA BIFIDA, OR REPEATED CATHERIZATIONS? NO LATEX RISK : ARE YOU FREQUENTLY EXPOSED TO LATEX PRODUCTS IN YOUR OCCUPATION?NO ALCOHOL SCREENING DID YOU HAVE A DRINK CONTAINING ALCOHOL IN THE PAST YEAR?NO POINTS0 INTERPRETATIONNEGATIVE RECREATIONAL DRUG USE DRUG USE?NO CAFFEINE CAFFEINE USE?YES HOW OFTEN AND HOW MUCH? 3CUPS COFFEE/DAY [employer] [id number] [employer] LANGUAGE LANGUAGES SPOKEN:BENGALI EDUCATION LEVEL OF EDUCATION:COLLEGE [employer]SIATES LEARNING BARRIERS / SPECIAL NEEDS CHANGE FROM LAST VISIT?NO BARRIERS TO LEARNING?NO HEARING IMPAIRED?NO VISION IMPAIRED?YES :CORRECTIVE LENSES COGNITIVELY IMPAIRED?NO READINESS TO LEARN?NO LEARNING PREFERENCES?NO LEARNING CAPABILITIES PRESENT?YES EMOTIONAL BARRIERS?NO SPECIAL DEVICES?NO INVENTORY ACCOUNTANT NEEDED?NO TODAY'S VISITNOTES - PFS REFERRAL NEEDED?NO CLERGY REFERRAL NEEDED?NO PUBLIC HEALTH REFERRAL NEEDED?NO WAS THE PROVIDER NOTIFIED OF ANY PERTINENT INFO?YES N/A HAS THE PATIENT BEEN EDUCATED REGARDING HIS/HER PLAN OF CARE?YES HAS THE PATIENT BEEN EDUCATED REGARDING PAIN, THE RISK FOR PAIN, THE IMPORTANCE OF EFFECTIVE PAIN MANAGEMENT, AND THE PAIN ASSESSMENT PROCESS?YES ADVANCE DIRECTIVE ADVANCE DIRECTIVE DISCUSSED WITH PATIENT:YES [facility] [phone]) REVIEW OF SYSTEMS CONSTITUTIONAL: ANY RECENT FEVER NO . CHILLS NO . WEIGHT CHANGE OF UNKNOWN REASONS NO . GASTROENTEROLOGY: NEW UNEXPLAINABLE CHANGES IN BOWEL CONTROL NO . CONSTIPATION NO . GENITOURINARY: ANY NEW CHANGE IN BLADDER CONTROL? NO . NEUROLOGY: NEW ONSET DIZZINESS OR NEUROLOGICAL CHANGES NOT MENTIONED NO . NEW NUMBNESS OR PAIN PATTERNS NOT MENTIONED AND PERTINENT TO TODAY'S VISIT NO . CARDIOLOGY: NEW CHEST PRESSURE NO . PATIENT DENIES NO . RESPIRATORY: UNEXPLAINABLE COUGH NO . NEW SHORTNESS OF BREATH NO . VITAL SIGNS WT 188.6 LBS, HT 66 IN, BMI 30.44 INDEX, BP 140/65 MM HG, HR 64 /MIN, RR 18 /MIN, TEMP 95.5 F, OXYGEN SAT % 98%, SAFE IN ENV? (Y/N) YES, NA INITIALS [place] [id number] REVIEWED. Paras DENIS RN. EXAMINATION GENERAL EXAMINATION: GENERALNO ACUTE DISTRESS, WELL NOURISHED AND HYDRATED. PSYCHAPPROPRIATE MOOD AND AFFECT . LUNGS:CLEAR TO AUSCULTATION BILATERALLY, NO WHEEZES, RHONCHI, RALES. HEART:NO MURMURS, REGULAR RATE AND RHYTHM. ASSESSMENTS CERVICAL POST-LAMINECTOMY SYNDROME - M96.1 (PRIMARY), RISK: (NULL) TREATMENT CERVICAL POST-LAMINECTOMY SYNDROME CONTINUE CYCLOBENZAPRINE HCL TABLET, 10 MG, 1 TABLET, ORALLY, BID, 30 DAY(S), 60 TABLET(S), REFILLS 3 NOTES: 65-YEAR-OLD MALE IN FOR CHRONIC PAIN FOLLOW-UP. PATIENT WAS GIVEN A CO-PAY CARD FOR NUCYNTA TO SEE IF WE CAN GET IT COVERED THAT WAY. IF NOT PATIENT AND THIS CUSTOM STUDIO COORDINATOR WILL DISCUSS POTENTIALLY USING TRAMADOL ER AT NIGHT. PATIENT HAS EXPRESSED UNDERSTANDING OF AND WAS IN AGREEMENT WITH TREATMENT PLAN. GIVEN TIME TO ASK QUESTIONS AND EXPRESS CONCERNS. , ISTOP REGISTRY REVIEWED AND DEMONSTRATES COMPLLIANCE. (REF # [id number] ) BRINGS IN MEDICATIONS WHICH IS APPROPRIATE FOR WHAT WAS DISPENSED. RECENT URINE TOXICOLOGY REVIEWED. NO UNAUTHORIZED MEDICATIONS. NO ILLICIT SUBSTANCES AND PRESCRIBED MEDICATIONS WERE PRESENT. PROCEDURE CODES FA211 ESTABILISHED PATIENT [facility] FAC[facility] CHARGE DISPOSITION & COMMUNICATION FOLLOW UP 2 MONTHS (REASON: NECK PAIN ) ELECTRONICALLY SIGNED BY ALIZE ADAIR ON 09/01/2020 AT 12:43 PM EDT DISCLAIMER : THIS IS A VISIT SUMMARY EXTRACTED FROM THE [employer] CHART. IT IS NOT A COPY OF THE [employer] PROGRESS NOTE. MARI
== END ==
LOC: M PAIN 08:45
PROVIDERS: ATTEND Family Medicine
DX: M96.1 Postlaminectomy syndrome, not elsewhere classified (principal); I10 Essential (primary) hypertension; E78.00 Pure hypercholesterolemia, unspecified; M54.2 Cervicalgia; I25.2 Old myocardial infarction; M25.511 Pain in right shoulder; M25.512 Pain in left shoulder; Z87.891 Personal history of nicotine dependence; Z79.82 Long term (current) use of aspirin; Z79.891 Long term (current) use of opiate analgesic; Z79.899 Other long term (current) drug therapy; Z88.0 Allergy status to penicillin; Z88.8 Allergy status to other drugs, medicaments and biological substances

== ENCOUNTER → 2020-10-28 | Outpatient (CLI) | payer BC ==
--- NOTE | 2020-11-02 05:16 | ECWPNPC ---
PATIENT NAME: KAYLAN MCKOY : 1955 GENDER: MALE VISIT DATE: 10/28/2020 DISCHARGE DATE: 10/28/20918 VISIT LOCKED DATE TIME: PHYSICIAN: OSVALDO MCKINNEY RESOURCE: OSVALDO MCKINNEY REASON FOR APPOINTMENT 1. NECK PAIN HISTORY OF PRESENT ILLNESS PAIN CENTER INTAKE QUESTIONS: DO YOU HAVE A HISTORY OF MRSA? :NO DO YOU TAKE A BLOOD THINNERS? :YES PLAVIX DO YOU HAVE ANY BLEEDING DISORDERS? :NO ANY NEW NUMBNESS OR WEAKNESS IN YOUR LEGS OR ARMS? :NO ANY PACEMAKER,DEFIBRILLATOR, OR DORSAL COLUMN STIMULATOR? :NO DO YOU HAVE ANY RASHES OR OPEN SORES? :NO ARE YOU ALLERGIC TO IV DYE? :NO ARE YOU DIABETIC? :YES PREDIABETIC ANY NEW PROBLEMS WITH YOUR MEDICATIONS? :NO HAVE YOU RECEIVED A VACCINE IN THE PAST 30 DAYS? :NO SECOND COVID VACCINATION 09/01/2020 DO YOU PLAN TO RECEIVE A VACCINE IN THE NEXT 21 DAYS? :NO DO YOU NEED ANY PRESCRIPTION? :YES PERCOCET. WOULD LIKE TO SPEAK WITH PROVIDER ABOUT MEDICATION. DO YOU TAKE ANY IMMUNOSUPPRESSIVE MEDICATIONS? :NO DO YOU HAVE ANY KIDNEY OR LIVER DISEASE? :NO IS THERE A CHANCE YOU COULD BE ? :NO ARE YOU BREAST FEEDING? :NO GENERAL: HPI 66-YEAR-OLD IN FOR CHRONIC PAIN FOLLOW-UP. HE RATES HIS PAIN CURRENTLY AT A 2-6 OUT OF 10. HE FEELS MEDICATIONS ARE HELPFUL AND DENIES MED SIDE EFFECTS AT THIS TIME. PATIENT WAS PREVIOUSLY ON NUCYNTA HOWEVER HIS INSURANCE HAS DECLINED TO PAY FOR IT GOING FORWARD.. -. FALL RISK SCREENING: SCREENING : NO FALLS REPORTED IN THE LAST YEAR. PAIN SCREENING: PATIENT HAS A COMPLAINT OF ACUTE OR CHRONIC PAIN :YES LOCATION OF PAIN:NECK, BOTH SHOULDERS INTENSITY OF PAIN (SCALE OF 1 TO 10):2 NECK IS A 2 AND BOTH SHOULDERS ARE A 6. WHAT DOES YOUR PAIN FEEL LIKE:ACHING, BURNING, CONTINOUS, SHARP, STABBING, TENDER, THROBBING, SORE, SHOOTING DURATION:CONTINOUS, CONSTANT, AWAKENS FROM SLEEP PAIN IS INCREASED BY:ACTIVITIES, PROLONGED STANDING PAIN IS DECREASED BY:USE OF PAIN MEDICATIONS, SITTING TENS UNIT, PERCOCET, ICE NURSING NOTE: -. CURRENT MEDICATIONS TAKING ASPIRIN 325 MG TABLET 1 TABLET ORALLY ONCE A DAY TAKING CARVEDILOL 3.125 MG TABLET 1 TABLET WITH FOOD ORALLY TWICE A DAY TAKING CRESTOR 40 MG TABLET 1 TABLET ORALLY ONCE A DAY TAKING ENTRESTO 97-103 MG TABLET 1 TABLET ORALLY TWICE A DAY TAKING ISOSORBIDE MONONITRATE ER 30 MG TABLET EXTENDED RELEASE 24 HOUR 1 TABLET ORALLY ONCE A DAY TAKING LEVOTHYROXINE SODIUM 75 MCG TABLET 1 TABLET ON AN EMPTY STOMACH IN THE MORNING ORALLY ONCE A DAY TAKING MAGNESIUM 400 MG CAPSULE ORALLY TWICE A DAY TAKING MULTIPLE VITAMIN TABLET 1 TABLET ORALLY ONCE A DAY TAKING NITROGLYCERIN 0.4 MG TABLET SUBLINGUAL SUBLINGUAL DIRECTED FOR CHEST DISCOMFORT TAKING PANTOPRAZOLE SODIUM 40 MG TABLET DELAYED RELEASE 1 TABLET ORALLY ONCE A DAY TAKING PLAVIX 75 MG TABLET 1 TABLET ORALLY ONCE A DAY TAKING SENNA PLUS 8.6-50 MG TABLET 1 TABLET ORALLY ONCE A DAY TAKING SPIRONOLACTONE 25 MG TABLET 1/2 TABLET ORALLY ONCE A DAY TAKING TAMSULOSIN HCL 0.4 MG CAPSULE EXTENDED RELEASE ORALLY DAILY TAKING VITAMIN D 2000 UNIT TABLET ORALLY BID TAKING NUCYNTA 75 MG TABLET 1 TABLET ORALLY EVERY 6 HRS PRN PAIN MDD=2 TAKING COLACE 100 MG CAPSULE 1 CAPSULE ORALLY BID NOT-TAKING CYCLOBENZAPRINE HCL 10 MG TABLET 1 TABLET ORALLY BID NOT-TAKING OXYCODONE-ACETAMINOPHEN 7.5-325 MG TABLET 1 TABLET EVERY 8 HOURS NEEDED ORALLY 1 TAB Q8H PRN MDD3 #60 TAB SHOULD LAST 30 DAYS NOT-TAKING TESTOSTERONE CYPIONATE 100 MG/ML SOLUTION 1 ML INTRAMUSCULAR Q 2 WEEKS NOT-TAKING MOVANTIK 25 MG TABLET 1 TABLET IN THE MORNING ORALLY ONCE A DAY MEDICATION LIST REVIEWED AND RECONCILED WITH THE PATIENT PAST MEDICAL HISTORY HYPERTENSION HEART ATTACK 2012 HYPERCHOLESTEROLEMIA SHOULDER PAIN-BILATERAL ARTHRITS NECK PAIN ALLERGIES AMOXICILLIN: RASH METHOTREXATE: HEADACHES SOCIAL HISTORY GENERAL: TOBACCO USE ARE YOU A:FORMER SMOKER HOW LONG HAS IT BEEN SINCE YOU LAST SMOKED?> 10 YEARS LATEX QUESTIONNAIRE LATEX ALLERGY : HAVE YOU EVER DEVELOPED ANY TYPE OF REACTION AFTER HANDLING LATEX PRODUCTS SUCH RUBBER GLOVES, CONDOMS, DIAPHRAGMS, BALLOONS, SOCKS, OR UNDERWEAR?NO LATEX ALLERGY : HAVE YOU EVER DEVELOPED ANY TYPE OF REACTION DURING OR AFTER DENTAL APPOINTMENT, VAGINAL/RECTAL EXAMINATION, SURGICAL PROCEDURE, OR ANY OTHER EXPOSURE?NO LATEX RISK : HAVE YOU EVER HAD ANY DIFFICULTY BREATHING OR HIVES AFTER EATING OR HANDLING ANY FRUITS, OR VEGETABLES; SUCH KIWI, BANANAS, STONE FRUITS, OR CHESTNUTSNO LATEX RISK : DO YOU HAVE A PREVIOUS PERSONAL HISTORY OF MORE THAN NINE SURGERIES, SPINA BIFIDA, OR REPEATED CATHERIZATIONS? NO LATEX RISK : ARE YOU FREQUENTLY EXPOSED TO LATEX PRODUCTS IN YOUR OCCUPATION?NO DATE ASKED : 10/28/2020 ALCOHOL USE: NO. ALCOHOL SCREENING DID YOU HAVE A DRINK CONTAINING ALCOHOL IN THE PAST YEAR?NO POINTS0 INTERPRETATIONNEGATIVE RECREATIONAL DRUG USE DRUG USE?NO CAFFEINE CAFFEINE USE?YES HOW OFTEN AND HOW MUCH? 3CUPS COFFEE/DAY [employer]AN [id number] [employer] LANGUAGE LANGUAGES SPOKEN:MONGOLIAN EDUCATION LEVEL OF EDUCATION:COLLEGE ASSOSSIATES LEARNING BARRIERS / SPECIAL NEEDS CHANGE FROM LAST VISIT?NO BARRIERS TO LEARNING?NO HEARING IMPAIRED?NO VISION IMPAIRED?YES :CORRECTIVE LENSES COGNITIVELY IMPAIRED?NO READINESS TO LEARN?YES LEARNING PREFERENCES?NO LEARNING CAPABILITIES PRESENT?YES EMOTIONAL BARRIERS?NO SPECIAL DEVICES?NO BUSINESS CONTINUITY STRATEGY DIRECTOR NEEDED?NO TODAY'S VISITNOTES - PFS REFERRAL NEEDED?NO CLERGY REFERRAL NEEDED?NO PUBLIC HEALTH REFERRAL NEEDED?NO WAS THE PROVIDER NOTIFIED OF ANY PERTINENT INFO?YES N/A HAS THE PATIENT BEEN EDUCATED REGARDING HIS/HER PLAN OF CARE?YES HAS THE PATIENT BEEN EDUCATED REGARDING PAIN, THE RISK FOR PAIN, THE IMPORTANCE OF EFFECTIVE PAIN MANAGEMENT, AND THE PAIN ASSESSMENT PROCESS?YES ADVANCE DIRECTIVE ADVANCE DIRECTIVE DISCUSSED WITH PATIENT:YES [facility] [phone]) REVIEW OF SYSTEMS CONSTITUTIONAL: ANY RECENT FEVER NO . CHILLS NO . WEIGHT CHANGE OF UNKNOWN REASONS NO . GASTROENTEROLOGY: NEW UNEXPLAINABLE CHANGES IN BOWEL CONTROL NO . CONSTIPATION NO . GENITOURINARY: ANY NEW CHANGE IN BLADDER CONTROL? NO . NEUROLOGY: NEW ONSET DIZZINESS OR NEUROLOGICAL CHANGES NOT MENTIONED NO . NEW NUMBNESS OR PAIN PATTERNS NOT MENTIONED AND PERTINENT TO TODAY'S VISIT NO . CARDIOLOGY: NEW CHEST PRESSURE NO . PATIENT DENIES NO . RESPIRATORY: UNEXPLAINABLE COUGH NO . NEW SHORTNESS OF BREATH NO . VITAL SIGNS WT 188.8 LBS, HT 66 IN, BMI 30.47 INDEX, BP 127/67 MM HG, HR 56 /MIN, RR 18 /MIN, TEMP 97.6 F, OXYGEN SAT % 95%, SAFE IN ENV? (Y/N) YES, NA INITIALS IN 08:55, REVIEWED BY: ORLANDO SALGUERO MA. EXAMINATION GENERAL EXAMINATION: GENERALNO ACUTE DISTRESS, WELL NOURISHED AND HYDRATED. PSYCHAPPROPRIATE MOOD AND AFFECT . LUNGS:CLEAR TO AUSCULTATION BILATERALLY, NO WHEEZES, RHONCHI, RALES. HEART:NO MURMURS, REGULAR RATE AND RHYTHM. ASSESSMENTS SHOULDER PAIN, BILATERAL - M25.511 (PRIMARY), RISK: (NULL) CERVICAL POST-LAMINECTOMY SYNDROME - M96.1, RISK: (NULL) TREATMENT CERVICAL POST-LAMINECTOMY SYNDROME STOP NUCYNTA TABLET, 75 MG, 1 TABLET, ORALLY, EVERY 6 HRS PRN PAIN MDD=2 CONTINUE OXYCODONE-ACETAMINOPHEN TABLET, 7.5-325 MG, 1 TABLET EVERY 8 HOURS NEEDED, ORALLY, 1 TAB Q8H PRN MDD3 #60 TAB SHOULD LAST 30 DAYS, 30 DAYS, 60, REFILLS 0 START TRAMADOL HCL TABLET, 50 MG, 1 TABLET NEEDED, ORALLY, ONCE A DAY, 30 DAY(S), 30 TABLET(S) NOTES: 65-YEAR-OLD MALE IN FOR CHRONIC PAIN FOLLOW-UP. GIVEN PRESENTING SYMPTOMS AND DISCUSSION WITH PATIENT RECOMMENDED ADDING TRAMADOL 50 MG 1 TABLET DAILY NEEDED FOR BREAKTHROUGH PAIN WITH FOLLOW-UP IN ONE MONTH TO DETERMINE EFFICACY OF TREATMENT. PATIENT HAS EXPRESSED UNDERSTANDING OF AND WAS IN AGREEMENT WITH TREATMENT PLAN. GIVEN TIME TO ASK QUESTIONS AND EXPRESS CONCERNS. ISTOP REGISTRY REVIEWED AND DEMONSTRATES COMPLLIANCE. (REF # [id number] ) BRINGS IN MEDICATIONS WHICH IS APPROPRIATE FOR WHAT WAS DISPENSED. RECENT URINE TOXICOLOGY REVIEWED. NO UNAUTHORIZED MEDICATIONS. NO ILLICIT SUBSTANCES AND PRESCRIBED MEDICATIONS WERE PRESENT. PROCEDURE CODES FA211 ESTABILISHED PATIENT [facility] CHARGE DISPOSITION & COMMUNICATION FOLLOW UP 4 WEEKS (REASON: NEW MEDICATION ) ELECTRONICALLY SIGNED BY ALIZE ADAIR ON 11/01/2020 AT 08:46 AM EDT DISCLAIMER : THIS IS A VISIT SUMMARY EXTRACTED FROM THE [employer] CHART. IT IS NOT A COPY OF THE [employer] PROGRESS NOTE. MTDD
== END ==
LOC: M PAIN 09:00
PROVIDERS: ATTEND Family Medicine
DX: M25.511 Pain in right shoulder (principal); M96.1 Postlaminectomy syndrome, not elsewhere classified; I10 Essential (primary) hypertension; E78.00 Pure hypercholesterolemia, unspecified; I25.2 Old myocardial infarction; M54.2 Cervicalgia; Z87.891 Personal history of nicotine dependence; Z79.82 Long term (current) use of aspirin; Z79.02 Long term (current) use of antithrombotics/antiplatelets; Z79.899 Other long term (current) drug therapy; Z88.0 Allergy status to penicillin; Z88.8 Allergy status to other drugs, medicaments and biological substances

== ENCOUNTER → 2020-11-04 | Outpatient (CLI) | payer BC ==
[2020-11-04 07:15] LABS: BLOOD UREA NITROGEN 19 MG/DL (7-18); CALCIUM LEVEL 8.8 MG/DL (8.8-10.2); CARBON DIOXIDE LEVEL 27 MEQ/L (21-32); CHLORIDE LEVEL 108 MEQ/L (98-107); CREATININE FOR GFR 1.06 MG/DL (0.70-1.30); GLOMERULAR FILTRATION RATE > 60.0 (>49); GLUCOSE, FASTING 130 MG/DL (70-100); MAGNESIUM LEVEL 2.6 MG/DL (1.8-2.4); POTASSIUM SERUM 4.2 MEQ/L (3.5-5.1); SODIUM LEVEL 140 MEQ/L (136-145)
== END ==
LOC: M LAB 05:56
PROVIDERS: ATTEND Physician Assistant
DX: I25.5 Ischemic cardiomyopathy (principal)

== ENCOUNTER → 2020-12-10 | Outpatient (CLI) | payer BC ==
--- NOTE | 2020-12-15 00:41 | ECWPNPC ---
PATIENT NAME: KAYLAN MCKOY : 1955 GENDER: MALE VISIT DATE: 12/10/2020 DISCHARGE DATE: 12/10/20 1038 VISIT LOCKED DATE TIME: PHYSICIAN: OSVALDO MCKINNEY RESOURCE: OSVALDO MCKINNEY REASON FOR APPOINTMENT 1. NEW MEDICATION HISTORY OF PRESENT ILLNESS GENERAL: HPI 65-YEAR-OLD MALE IN FOR CHRONIC PAIN FOLLOW-UP. HE RATES HIS PAIN CURRENTLY AT A 4 OUT OF 10. HE FEELS HIS MEDICATIONS ARE HELPFUL AND DENIES MED SIDE EFFECTS AT THIS TIME. HE DOES QUESTION IF WE COULD INCREASE HIS TRAMADOL TO TWICE DAILY DOSING HE EXPERIENCES INCREASED PAIN AT NIGHT.. -. FALL RISK SCREENING: SCREENING : NO FALLS REPORTED IN THE LAST YEAR. PAIN SCREENING: PATIENT HAS A COMPLAINT OF ACUTE OR CHRONIC PAIN :YES LOCATION OF PAIN:BOTH SHOULDERS INTENSITY OF PAIN (SCALE OF 1 TO 10):4 INCREASES IN INTENSITY DAY PROGRESSES AND CAN GET UP TO A 10. WHAT DOES YOUR PAIN FEEL LIKE:ACHING, CONTINOUS, SHARP DURATION:CONTINOUS, CONSTANT, AWAKENS FROM SLEEP PAIN IS INCREASED BY:ACTIVITIES, PROLONGED STANDING PAIN IS DECREASED BY:USE OF PAIN MEDICATIONS, SITTING NURSING NOTE: -. PAIN CENTER INTAKE QUESTIONS: DO YOU HAVE A HISTORY OF MRSA? :NO DO YOU TAKE A BLOOD THINNERS? :YES PLAVIX DO YOU HAVE ANY BLEEDING DISORDERS? :NO ANY NEW NUMBNESS OR WEAKNESS IN YOUR LEGS OR ARMS? :NO ANY PACEMAKER,DEFIBRILLATOR, OR DORSAL COLUMN STIMULATOR? :NO DO YOU HAVE ANY RASHES OR OPEN SORES? :NO ARE YOU ALLERGIC TO IV DYE? :NO ARE YOU DIABETIC? :YES PREDIABETIC ANY NEW PROBLEMS WITH YOUR MEDICATIONS? :NO HAVE YOU RECEIVED A VACCINE IN THE PAST 30 DAYS? :NO SECOND COVID VACCINATION 09/01/2020 DO YOU PLAN TO RECEIVE A VACCINE IN THE NEXT 21 DAYS? :NO DO YOU NEED ANY PRESCRIPTION? :NO DO YOU TAKE ANY IMMUNOSUPPRESSIVE MEDICATIONS? :NO DO YOU HAVE ANY KIDNEY OR LIVER DISEASE? :NO IS THERE A CHANCE YOU COULD BE ? :NO ARE YOU BREAST FEEDING? :NO CURRENT MEDICATIONS TAKING ASPIRIN 325 MG TABLET 1 TABLET ORALLY ONCE A DAY TAKING CARVEDILOL 3.125 MG TABLET 1 TABLET WITH FOOD ORALLY TWICE A DAY TAKING CRESTOR 40 MG TABLET 1 TABLET ORALLY ONCE A DAY TAKING ENTRESTO 97-103 MG TABLET 1 TABLET ORALLY TWICE A DAY TAKING ISOSORBIDE MONONITRATE ER 30 MG TABLET EXTENDED RELEASE 24 HOUR 1 TABLET ORALLY ONCE A DAY TAKING LEVOTHYROXINE SODIUM 75 MCG TABLET 1 TABLET ON AN EMPTY STOMACH IN THE MORNING ORALLY ONCE A DAY TAKING MAGNESIUM 400 MG CAPSULE ORALLY TWICE A DAY TAKING MULTIPLE VITAMIN TABLET 1 TABLET ORALLY ONCE A DAY TAKING NITROGLYCERIN 0.4 MG TABLET SUBLINGUAL SUBLINGUAL DIRECTED FOR CHEST DISCOMFORT TAKING PANTOPRAZOLE SODIUM 40 MG TABLET DELAYED RELEASE 1 TABLET ORALLY ONCE A DAY TAKING PLAVIX 75 MG TABLET 1 TABLET ORALLY ONCE A DAY TAKING SENNA PLUS 8.6-50 MG TABLET 1 TABLET ORALLY ONCE A DAY TAKING SPIRONOLACTONE 25 MG TABLET 1/2 TABLET ORALLY ONCE A DAY TAKING TAMSULOSIN HCL 0.4 MG CAPSULE EXTENDED RELEASE ORALLY DAILY TAKING VITAMIN D 2000 UNIT TABLET ORALLY BID TAKING COLACE 100 MG CAPSULE 1 CAPSULE ORALLY BID TAKING OXYCODONE-ACETAMINOPHEN 7.5-325 MG TABLET 1 TABLET EVERY 8 HOURS NEEDED ORALLY 1 TAB Q8H PRN MDD3 #60 TAB SHOULD LAST 30 DAYS TAKING TRAMADOL HCL 50 MG TABLET 1 TABLET NEEDED ORALLY ONCE A DAY NOT-TAKING CYCLOBENZAPRINE HCL 10 MG TABLET 1 TABLET ORALLY BID NOT-TAKING TESTOSTERONE CYPIONATE 100 MG/ML SOLUTION 1 ML INTRAMUSCULAR Q 2 WEEKS NOT-TAKING MOVANTIK 25 MG TABLET 1 TABLET IN THE MORNING ORALLY ONCE A DAY MEDICATION LIST REVIEWED AND RECONCILED WITH THE PATIENT PAST MEDICAL HISTORY HYPERTENSION HEART ATTACK 2013 HYPERCHOLESTEROLEMIA SHOULDER PAIN-BILATERAL ARTHRITS NECK PAIN ALLERGIES AMOXICILLIN: RASH METHOTREXATE: HEADACHES SOCIAL HISTORY GENERAL: TOBACCO USE ARE YOU A:FORMER SMOKER HOW LONG HAS IT BEEN SINCE YOU LAST SMOKED?> 10 YEARS LATEX QUESTIONNAIRE LATEX ALLERGY : HAVE YOU EVER DEVELOPED ANY TYPE OF REACTION AFTER HANDLING LATEX PRODUCTS SUCH RUBBER GLOVES, CONDOMS, DIAPHRAGMS, BALLOONS, SOCKS, OR UNDERWEAR?NO LATEX ALLERGY : HAVE YOU EVER DEVELOPED ANY TYPE OF REACTION DURING OR AFTER DENTAL APPOINTMENT, VAGINAL/RECTAL EXAMINATION, SURGICAL PROCEDURE, OR ANY OTHER EXPOSURE?NO LATEX RISK : HAVE YOU EVER HAD ANY DIFFICULTY BREATHING OR HIVES AFTER EATING OR HANDLING ANY FRUITS, OR VEGETABLES; SUCH KIWI, BANANAS, STONE FRUITS, OR CHESTNUTSNO LATEX RISK : DO YOU HAVE A PREVIOUS PERSONAL HISTORY OF MORE THAN NINE SURGERIES, SPINA BIFIDA, OR REPEATED CATHERIZATIONS? NO LATEX RISK : ARE YOU FREQUENTLY EXPOSED TO LATEX PRODUCTS IN YOUR OCCUPATION?NO DATE ASKED : 12/10/2020 ALCOHOL USE: NO. ALCOHOL SCREENING DID YOU HAVE A DRINK CONTAINING ALCOHOL IN THE PAST YEAR?NO POINTS0 INTERPRETATIONNEGATIVE RECREATIONAL DRUG USE DRUG USE?NO CAFFEINE CAFFEINE USE?YES HOW OFTEN AND HOW MUCH? 3CUPS COFFEE/DAY [employer] [id number] SPIRITISM LANGUAGE LANGUAGES SPOKEN:[place] EDUCATION LEVEL OF EDUCATION:COLLEGE ASSOSSIATES LEARNING BARRIERS / SPECIAL NEEDS CHANGE FROM LAST VISIT?NO BARRIERS TO LEARNING?NO HEARING IMPAIRED?NO VISION IMPAIRED?YES :CORRECTIVE LENSES COGNITIVELY IMPAIRED?NO READINESS TO LEARN?YES LEARNING PREFERENCES?NO LEARNING CAPABILITIES PRESENT?YES EMOTIONAL BARRIERS?NO SPECIAL DEVICES?NO TAX MANAGER PUBLIC NEEDED?NO TODAY'S VISITNOTES - PFS REFERRAL NEEDED?NO CLERGY REFERRAL NEEDED?NO PUBLIC HEALTH REFERRAL NEEDED?NO WAS THE PROVIDER NOTIFIED OF ANY PERTINENT INFO?YES N/A HAS THE PATIENT BEEN EDUCATED REGARDING HIS/HER PLAN OF CARE?YES HAS THE PATIENT BEEN EDUCATED REGARDING PAIN, THE RISK FOR PAIN, THE IMPORTANCE OF EFFECTIVE PAIN MANAGEMENT, AND THE PAIN ASSESSMENT PROCESS?YES ADVANCE DIRECTIVE ADVANCE DIRECTIVE DISCUSSED WITH PATIENT:YES [facility] [phone](C) REVIEW OF SYSTEMS CONSTITUTIONAL: ANY RECENT FEVER NO . CHILLS NO . WEIGHT CHANGE OF UNKNOWN REASONS NO . GASTROENTEROLOGY: NEW UNEXPLAINABLE CHANGES IN BOWEL CONTROL NO . CONSTIPATION NO . GENITOURINARY: ANY NEW CHANGE IN BLADDER CONTROL? NO . NEUROLOGY: NEW ONSET DIZZINESS OR NEUROLOGICAL CHANGES NOT MENTIONED NO . NEW NUMBNESS OR PAIN PATTERNS NOT MENTIONED AND PERTINENT TO TODAY'S VISIT NO . CARDIOLOGY: NEW CHEST PRESSURE NO . PATIENT DENIES NO . RESPIRATORY: UNEXPLAINABLE COUGH NO . NEW SHORTNESS OF BREATH NO . VITAL SIGNS WT 186.0 LBS, HT 66 IN, BMI 30.02 INDEX, BP 132/61 MM HG, HR 66 /MIN, RR 18 /MIN, TEMP 96.0 F, OXYGEN SAT % 99%, SAFE IN ENV? (Y/N) YES, NA INITIALS AW 1020, REVIEWED BY: ORLANDO SALGUERO MA. EXAMINATION GENERAL EXAMINATION: GENERALNO ACUTE DISTRESS, WELL NOURISHED AND HYDRATED. PSYCHAPPROPRIATE MOOD AND AFFECT . LUNGS:CLEAR TO AUSCULTATION BILATERALLY, NO WHEEZES, RHONCHI, RALES. HEART:NO MURMURS, REGULAR RATE AND RHYTHM. ASSESSMENTS CERVICAL POST-LAMINECTOMY SYNDROME - M96.1 (PRIMARY), RISK: (NULL) TREATMENT CERVICAL POST-LAMINECTOMY SYNDROME NOTES: 65-YEAR-OLD MALE IN FOR CHRONIC PAIN FOLLOW-UP. GIVEN PRESENTING SYMPTOMS RECOMMEND INCREASING TRAMADOL TO TWICE DAILY DOSING WITH FOLLOW-UP IN 1 MONTH TO DETERMINE EFFICACY OF TREATMENT. PATIENT HAS EXPRESSED UNDERSTANDING OF AND WAS IN AGREEMENT WITH TREATMENT PLAN. GIVEN TIME TO ASK QUESTIONS AND EXPRESS CONCERNS. ISTOP REGISTRY REVIEWED AND DEMONSTRATES COMPLLIANCE. (REF [id number] ) BRINGS IN MEDICATIONS WHICH IS APPROPRIATE FOR WHAT WAS DISPENSED. RECENT URINE TOXICOLOGY REVIEWED. NO UNAUTHORIZED MEDICATIONS. NO ILLICIT SUBSTANCES AND PRESCRIBED MEDICATIONS WERE PRESENT. PROCEDURE CODES FA211 ESTABILISHED PATIENT [facility] CHARGE DISPOSITION & COMMUNICATION FOLLOW UP 4 WEEKS (REASON: MED INCREASE ) ELECTRONICALLY SIGNED BY ALIZE ADAIR ON 12/14/2020 AT 08:32 AM EDT DISCLAIMER : THIS IS A VISIT SUMMARY EXTRACTED FROM THE [employer] CHART. IT IS NOT A COPY OF THE [employer] PROGRESS NOTE. MARI
== END ==
LOC: M PAIN 10:30
PROVIDERS: ATTEND Family Medicine
DX: M96.1 Postlaminectomy syndrome, not elsewhere classified (principal); I10 Essential (primary) hypertension; I25.2 Old myocardial infarction; E78.00 Pure hypercholesterolemia, unspecified; M25.511 Pain in right shoulder; M25.512 Pain in left shoulder; M54.2 Cervicalgia; Z87.891 Personal history of nicotine dependence; Z79.82 Long term (current) use of aspirin; Z79.02 Long term (current) use of antithrombotics/antiplatelets; Z79.891 Long term (current) use of opiate analgesic; Z79.899 Other long term (current) drug therapy; Z88.0 Allergy status to penicillin; Z88.8 Allergy status to other drugs, medicaments and biological substances

== ENCOUNTER → 2020-12-30 | Outpatient (CLI) | payer BC ==
[2020-12-30 07:01] LABS: HEMATOCRIT 41.7 % (42.0-52.0); HEMOGLOBIN 14.2 g/dl (13.5-17.5); MEAN CORPUSCULAR HEMOGLOBIN 31.3 pg (27.0-33.0); MEAN CORPUSCULAR HGB CONC 34.1 g/dl (32.0-36.5); MEAN CORPUSCULAR VOLUME 91.9 fl (80.0-96.0); PLATELET COUNT, AUTOMATED 228 10^3/uL (150-450); RED BLOOD COUNT 4.54 10^6/uL (4.30-6.10); WHITE BLOOD COUNT 3.9 10^3/uL (4.0-10.0)
[2020-12-30 07:17] LABS: HEMOGLOBIN A1c 6.1 %
[2020-12-30 07:34] LABS: ALBUMIN 3.9 GM/DL (3.2-5.2); ALT/SGPT 37 U/L (12-78); BILIRUBIN,TOTAL 0.3 MG/DL (0.2-1.0); BLOOD UREA NITROGEN 11 MG/DL (7-18); CALCIUM LEVEL 8.4 MG/DL (8.8-10.2); CARBON DIOXIDE LEVEL 26 MEQ/L (21-32); CHLORIDE LEVEL 110 MEQ/L (98-107); CHOLESTEROL LEVEL 142 MG/DL (<200); CHOLESTEROL RISK RATIO 3.837 (<5); CREATININE FOR GFR 0.93 MG/DL (0.70-1.30); GLOMERULAR FILTRATION RATE > 60.0 (>49); GLUCOSE, FASTING 140 MG/DL (70-100); HDL CHOLESTEROL 37 MG/DL (>40); LDL CHOLESTEROL 70 MG/DL (<100); NON-HDL-C 105 MG/DL; PROSTATIC SPECIFIC AG MONITOR 0.42 NG/ML (< 4.00); SODIUM LEVEL 141 MEQ/L (136-145); TOTAL PROTEIN 6.7 GM/DL (6.4-8.2); TRIGLYCERIDES LEVEL 177 MG/DL (<150)
[2020-12-30 11:20] LABS: TESTOSTERONE 286 NG/DL (241-827); TOTAL 25(OH) VITAMIN D 44.2 NG/ML (30.0-100.0)
== END ==
LOC: M LAB 06:24
PROVIDERS: ATTEND Family Medicine
DX: I10 Essential (primary) hypertension (principal)

== ENCOUNTER → 2021-01-10 | Outpatient (CLI) | payer BC ==
--- NOTE | 2021-01-11 23:33 | ECWPNPC ---
PATIENT NAME: KAYLAN MCKOY : 1955 GENDER: MALE VISIT DATE: 01/10/2021 DISCHARGE DATE: 01/10/21924 VISIT LOCKED DATE TIME: PHYSICIAN: OSVALDO MCKINNEY RESOURCE: OSVALDO MCKINNEY REASON FOR APPOINTMENT 1. MED INCREASE HISTORY OF PRESENT ILLNESS GENERAL: HPI 66-YEAR-OLD MALE IN FOR CHRONIC PAIN FOLLOW-UP. HE FEELS HIS MEDICATIONS ARE HELPFUL AND DENIES MED SIDE EFFECTS AT THIS TIME. HE RATES HIS PAIN CURRENTLY AT A 5 OUT OF 10 AND DESCRIBES IT ACHING, BURNING, AND CONTINUOUS.. -. FALL RISK SCREENING: SCREENING : NO FALLS REPORTED IN THE LAST YEAR. PAIN SCREENING: PATIENT HAS A COMPLAINT OF ACUTE OR CHRONIC PAIN :YES LOCATION OF PAIN:NECK, BOTH SHOULDERS INTENSITY OF PAIN (SCALE OF 1 TO 10):5 END OF THE DAY IS 8 OR 9. WHAT DOES YOUR PAIN FEEL LIKE:ACHING, BURNING, CONTINOUS, SHARP, TENDER, THROBBING, SORE DURATION:CONTINOUS, CONSTANT, AWAKENS FROM SLEEP PAIN IS INCREASED BY:ACTIVITIES, PROLONGED STANDING PAIN IS DECREASED BY:USE OF PAIN MEDICATIONS COMPRESSION VEST AND TENS UNIT NURSING NOTE: -. PAIN CENTER INTAKE QUESTIONS: DO YOU HAVE A HISTORY OF MRSA? :NO DO YOU TAKE A BLOOD THINNERS? :YES PLAVIX DO YOU HAVE ANY BLEEDING DISORDERS? :NO ANY NEW NUMBNESS OR WEAKNESS IN YOUR LEGS OR ARMS? :NO ANY PACEMAKER,DEFIBRILLATOR, OR DORSAL COLUMN STIMULATOR? :NO DO YOU HAVE ANY RASHES OR OPEN SORES? :NO ARE YOU ALLERGIC TO IV DYE? :NO ARE YOU DIABETIC? :YES PREDIABETIC ANY NEW PROBLEMS WITH YOUR MEDICATIONS? :YES PATIENT STATES HE "DID NOT RECEIVE ENOUGH TRAMADOL FROM THE PHARMACY." HAVE YOU RECEIVED A VACCINE IN THE PAST 30 DAYS? :NO SECOND COVID VACCINATION 09/01/2020 DO YOU PLAN TO RECEIVE A VACCINE IN THE NEXT 21 DAYS? :NO DO YOU NEED ANY PRESCRIPTION? :NO DO YOU TAKE ANY IMMUNOSUPPRESSIVE MEDICATIONS? :NO DO YOU HAVE ANY KIDNEY OR LIVER DISEASE? :NO IS THERE A CHANCE YOU COULD BE ? :NO ARE YOU BREAST FEEDING? :NO CURRENT MEDICATIONS TAKING ASPIRIN 325 MG TABLET 1 TABLET ORALLY ONCE A DAY TAKING CARVEDILOL 3.125 MG TABLET 1 TABLET WITH FOOD ORALLY TWICE A DAY TAKING CRESTOR 40 MG TABLET 1 TABLET ORALLY ONCE A DAY TAKING ENTRESTO 97-103 MG TABLET 1 TABLET ORALLY TWICE A DAY TAKING ISOSORBIDE MONONITRATE ER 30 MG TABLET EXTENDED RELEASE 24 HOUR 1 TABLET ORALLY ONCE A DAY TAKING LEVOTHYROXINE SODIUM 75 MCG TABLET 1 TABLET ON AN EMPTY STOMACH IN THE MORNING ORALLY ONCE A DAY TAKING MAGNESIUM 400 MG CAPSULE ORALLY TWICE A DAY TAKING MULTIPLE VITAMIN TABLET 1 TABLET ORALLY ONCE A DAY TAKING NITROGLYCERIN 0.4 MG TABLET SUBLINGUAL SUBLINGUAL DIRECTED FOR CHEST DISCOMFORT TAKING PANTOPRAZOLE SODIUM 40 MG TABLET DELAYED RELEASE 1 TABLET ORALLY ONCE A DAY TAKING PLAVIX 75 MG TABLET 1 TABLET ORALLY ONCE A DAY TAKING SENNA PLUS 8.6-50 MG TABLET 1 TABLET ORALLY ONCE A DAY TAKING SPIRONOLACTONE 25 MG TABLET 1/2 TABLET ORALLY ONCE A DAY TAKING TAMSULOSIN HCL 0.4 MG CAPSULE EXTENDED RELEASE ORALLY DAILY TAKING VITAMIN D 2000 UNIT TABLET ORALLY BID TAKING COLACE 100 MG CAPSULE 1 CAPSULE ORALLY BID TAKING OXYCODONE-ACETAMINOPHEN 7.5-325 MG TABLET 1 TABLET EVERY 8 HOURS NEEDED ORALLY 1 TAB Q8H PRN MDD3 #60 TAB SHOULD LAST 30 DAYS TAKING TRAMADOL HCL 50 MG TABLET 1 TABLET NEEDED ORALLY ONCE A DAY NOT-TAKING CYCLOBENZAPRINE HCL 10 MG TABLET 1 TABLET ORALLY BID NOT-TAKING TESTOSTERONE CYPIONATE 100 MG/ML SOLUTION 1 ML INTRAMUSCULAR Q 2 WEEKS NOT-TAKING MOVANTIK 25 MG TABLET 1 TABLET IN THE MORNING ORALLY ONCE A DAY MEDICATION LIST REVIEWED AND RECONCILED WITH THE PATIENT PAST MEDICAL HISTORY HYPERTENSION HEART ATTACK 2012 HYPERCHOLESTEROLEMIA SHOULDER PAIN-BILATERAL ARTHRITS NECK PAIN ALLERGIES AMOXICILLIN: RASH METHOTREXATE: HEADACHES SOCIAL HISTORY GENERAL: TOBACCO USE ARE YOU A:FORMER SMOKER HOW LONG HAS IT BEEN SINCE YOU LAST SMOKED?> 10 YEARS LATEX QUESTIONNAIRE LATEX ALLERGY : HAVE YOU EVER DEVELOPED ANY TYPE OF REACTION AFTER HANDLING LATEX PRODUCTS SUCH RUBBER GLOVES, CONDOMS, DIAPHRAGMS, BALLOONS, SOCKS, OR UNDERWEAR?NO LATEX ALLERGY : HAVE YOU EVER DEVELOPED ANY TYPE OF REACTION DURING OR AFTER DENTAL APPOINTMENT, VAGINAL/RECTAL EXAMINATION, SURGICAL PROCEDURE, OR ANY OTHER EXPOSURE?NO LATEX RISK : HAVE YOU EVER HAD ANY DIFFICULTY BREATHING OR HIVES AFTER EATING OR HANDLING ANY FRUITS, OR VEGETABLES; SUCH KIWI, BANANAS, STONE FRUITS, OR CHESTNUTSNO LATEX RISK : DO YOU HAVE A PREVIOUS PERSONAL HISTORY OF MORE THAN NINE SURGERIES, SPINA BIFIDA, OR REPEATED CATHERIZATIONS? NO LATEX RISK : ARE YOU FREQUENTLY EXPOSED TO LATEX PRODUCTS IN YOUR OCCUPATION?NO DATE ASKED : 01/10/2021 ALCOHOL USE: NO. ALCOHOL SCREENING DID YOU HAVE A DRINK CONTAINING ALCOHOL IN THE PAST YEAR?NO POINTS0 INTERPRETATIONNEGATIVE RECREATIONAL DRUG USE DRUG USE?NO CAFFEINE CAFFEINE USE?YES HOW OFTEN AND HOW MUCH? 3CUPS COFFEE/DAY LATTER DAY [id number] [employer] L[employer]UAGE LANGUAGES SPOKEN:[place] EDUCATION LEVEL OF EDUCATION:COLLEGE ASSOSSIATES LEARNING BARRIERS / SPECIAL NEEDS CHANGE FROM LAST VISIT?NO BARRIERS TO LEARNING?NO HEARING IMPAIRED?NO VISION IMPAIRED?YES :CORRECTIVE LENSES COGNITIVELY IMPAIRED?NO READINESS TO LEARN?YES LEARNING PREFERENCES?NO LEARNING CAPABILITIES PRESENT?YES EMOTIONAL BARRIERS?NO SPECIAL DEVICES?NO OIM ARCHITECT NEEDED?NO TODAY'S VISITNOTES - PFS REFERRAL NEEDED?NO CLERGY REFERRAL NEEDED?NO PUBLIC HEALTH REFERRAL NEEDED?NO WAS THE PROVIDER NOTIFIED OF ANY PERTINENT INFO?YES N/A HAS THE PATIENT BEEN EDUCATED REGARDING HIS/HER PLAN OF CARE?YES HAS THE PATIENT BEEN EDUCATED REGARDING PAIN, THE RISK FOR PAIN, THE IMPORTANCE OF EFFECTIVE PAIN MANAGEMENT, AND THE PAIN ASSESSMENT PROCESS?YES ADVANCE DIRECTIVE ADVANCE DIRECTIVE DISCUSSED WITH PATIENT:YES [facility], [place] [phone]) REVIEW OF SYSTEMS CONSTITUTIONAL: ANY RECENT FEVER NO . CHILLS NO . WEIGHT CHANGE OF UNKNOWN REASONS NO . GASTROENTEROLOGY: NEW UNEXPLAINABLE CHANGES IN BOWEL CONTROL NO . CONSTIPATION NO . GENITOURINARY: ANY NEW CHANGE IN BLADDER CONTROL? NO . NEUROLOGY: NEW ONSET DIZZINESS OR NEUROLOGICAL CHANGES NOT MENTIONED NO . NEW NUMBNESS OR PAIN PATTERNS NOT MENTIONED AND PERTINENT TO TODAY'S VISIT NO . CARDIOLOGY: NEW CHEST PRESSURE NO . PATIENT DENIES NO . RESPIRATORY: UNEXPLAINABLE COUGH NO . NEW SHORTNESS OF BREATH NO . VITAL SIGNS WT 183 LBS, WT-KG 83.01 KG, HT 66 IN, BMI 29.53 INDEX, BP 121/70 MM HG, HR 56 /MIN, RR 18 /MIN, TEMP 96.4 F, OXYGEN SAT % 100%, SAFE IN ENV? (Y/N) YES, NA INITIALS MO 09:02, REVIEWED BY: ORLANDO SALGUERO MA. EXAMINATION GENERAL EXAMINATION: GENERALNO ACUTE DISTRESS, WELL NOURISHED AND HYDRATED. PSYCHAPPROPRIATE MOOD AND AFFECT . LUNGS:CLEAR TO AUSCULTATION BILATERALLY, NO WHEEZES, RHONCHI, RALES. HEART:NO MURMURS, REGULAR RATE AND RHYTHM. ASSESSMENTS CERVICAL POST-LAMINECTOMY SYNDROME - M96.1 (PRIMARY) TREATMENT CERVICAL POST-LAMINECTOMY SYNDROME REFILL TRAMADOL HCL TABLET, 50 MG, 1 TABLET NEEDED, ORALLY, TWICE DAILY MID 2, 30 DAY(S), 60 NOTES: 66-YEAR-OLD MALE IN FOR CHRONIC PAIN FOLLOW-UP. GIVEN PRESENTING SYMPTOMS RECOMMEND CONTINUATION OF CURRENT MEDICATION REGIMEN WITH FOLLOW-UP IN 3 MONTHS. PATIENT HAS EXPRESSED UNDERSTANDING OF AND WAS IN AGREEMENT WITH TREATMENT PLAN. GIVEN TIME TO ASK QUESTIONS AND EXPRESS CONCERNS. [employer] REG[employer]RY REVIEWED AND DEMONSTRATES COMPLLIANCE. (REF # [id number] ) BRINGS IN MEDICATIONS WHICH IS APPROPRIATE FOR WHAT WAS DISPENSED. RECENT URINE TOXICOLOGY REVIEWED. NO UNAUTHORIZED MEDICATIONS. NO ILLICIT SUBSTANCES AND PRESCRIBED MEDICATIONS WERE PRESENT. PROCEDURE CODES FA211 ESTABILISHED PATIENT [facility] FACILITY CHARGE DISPOSITION & COMMUNICATION FOLLOW UP 3 MONTHS (REASON: NECK PAIN ) ELECTRONICALLY SIGNED BY ALIZE ADAIR ON 01/11/2021 AT 08:18 AM EDT DISCLAIMER : THIS IS A VISIT SUMMARY EXTRACTED FROM THE [employer] CHART. IT IS NOT A COPY OF THE [employer] PROGRESS NOTE. MARI
== END ==
LOC: M PAIN 09:00
PROVIDERS: ATTEND Family Medicine
DX: M96.1 Postlaminectomy syndrome, not elsewhere classified (principal); I10 Essential (primary) hypertension; E78.00 Pure hypercholesterolemia, unspecified; M54.2 Cervicalgia; I25.2 Old myocardial infarction; M25.511 Pain in right shoulder; M25.512 Pain in left shoulder; Z87.891 Personal history of nicotine dependence; Z79.82 Long term (current) use of aspirin; Z79.891 Long term (current) use of opiate analgesic; Z79.899 Other long term (current) drug therapy; Z88.0 Allergy status to penicillin; Z88.8 Allergy status to other drugs, medicaments and biological substances

== ENCOUNTER → 2021-02-09 | Outpatient (CLI) | payer BC ==
[2021-02-09 08:03] LABS: INR 0.99; PROTHROMBIN TIME 13.5 SECONDS (12.7-14.5)
== END ==
LOC: M LAB 06:20
PROVIDERS: ATTEND Orthopaedic Surgery
DX: Z01.818 Encounter for other preprocedural examination (principal)

== ENCOUNTER → 2021-02-18 | Outpatient (CLI) | payer BC ==
[2021-02-18 07:27] LABS: HEMATOCRIT 42.6 % (42.0-52.0); HEMOGLOBIN 14.5 g/dl (13.5-17.5); MEAN CORPUSCULAR HEMOGLOBIN 31.3 pg (27.0-33.0); MEAN CORPUSCULAR VOLUME 91.8 fl (80.0-96.0); PLATELET COUNT, AUTOMATED 247 10^3/uL (150-450); RED BLOOD COUNT 4.64 10^6/uL (4.30-6.10); WHITE BLOOD COUNT 4.6 10^3/uL (4.0-10.0)
[2021-02-18 07:39] LABS: BLOOD UREA NITROGEN 17 MG/DL (7-18); CALCIUM LEVEL 8.8 MG/DL (8.8-10.2); CARBON DIOXIDE LEVEL 27 MEQ/L (21-32); CHLORIDE LEVEL 110 MEQ/L (98-107); CREATININE FOR GFR 0.95 MG/DL (0.70-1.30); GLOMERULAR FILTRATION RATE > 60.0 (>49); GLUCOSE, FASTING 134 MG/DL (70-100); POTASSIUM SERUM 4.4 MEQ/L (3.5-5.1); SODIUM LEVEL 141 MEQ/L (136-145)
[2021-02-18 07:45] LABS: INR 0.97; PROTHROMBIN TIME 13.3 SECONDS (12.7-14.5)
== END ==
LOC: M LAB 06:30
PROVIDERS: ATTEND Orthopaedic Surgery
DX: Z01.818 Encounter for other preprocedural examination (principal)

== ENCOUNTER → 2021-04-22 | Outpatient (CLI) | payer BC | LOC: M PAIN 09:15 | PROVIDERS: ATTEND Anesthesiology | DX: M25.511 Pain in right shoulder (principal); M25.512 Pain in left shoulder; I10 Essential (primary) hypertension; E78.00 Pure hypercholesterolemia, unspecified; M54.2 Cervicalgia; I25.2 Old myocardial infarction; Z79.891 Long term (current) use of opiate analgesic; Z79.82 Long term (current) use of aspirin; Z79.02 Long term (current) use of antithrombotics/antiplatelets; Z79.899 Other long term (current) drug therapy; Z88.0 Allergy status to penicillin; Z88.8 Allergy status to other drugs, medicaments and biological substances; Z87.891 Personal history of nicotine dependence ==

== ENCOUNTER → 2021-05-11 | Outpatient (CLI) | payer BC ==
[~2021-05-11] MED LIST changes: -LISI-898 PO; +LISI5TAB11 PO
[2021-05-11 07:37] LABS: HEMOGLOBIN 14.4 g/dl (13.5-17.5); MEAN CORPUSCULAR HEMOGLOBIN 31.2 pg (27.0-33.0); MEAN CORPUSCULAR HGB CONC 33.5 g/dl (32.0-36.5); MEAN CORPUSCULAR VOLUME 93.1 fl (80.0-96.0); PLATELET COUNT, AUTOMATED 234 10^3/uL (150-450); RED BLOOD COUNT 4.62 10^6/uL (4.30-6.10); WHITE BLOOD COUNT 3.8 10^3/uL (4.0-10.0)
[2021-05-11 07:59] LABS: BLOOD UREA NITROGEN 16 MG/DL (7-18); CARBON DIOXIDE LEVEL 26 MEQ/L (21-32); CHLORIDE LEVEL 111 MEQ/L (98-107); CREATININE FOR GFR 1.08 MG/DL (0.70-1.30); GLOMERULAR FILTRATION RATE > 60.0 (>49); GLUCOSE, FASTING 129 MG/DL (70-100); POTASSIUM SERUM 4.5 MEQ/L (3.5-5.1); SODIUM LEVEL 143 MEQ/L (136-145)
[2021-05-11 08:00] LABS: ALBUMIN 3.5 GM/DL (3.2-5.2); ALT/SGPT 35 U/L (12-78); BILIRUBIN,TOTAL 0.4 MG/DL (0.2-1.0); CALCIUM LEVEL 8.9 MG/DL (8.8-10.2); CHOLESTEROL LEVEL 141 MG/DL (<200); CHOLESTEROL RISK RATIO 3.615 (<5); HDL CHOLESTEROL 39 MG/DL (>40); LDL CHOLESTEROL 71 MG/DL (<100); MAGNESIUM LEVEL 2.4 MG/DL (1.8-2.4); NON-HDL-C 102 MG/DL; TOTAL PROTEIN 6.5 GM/DL (6.4-8.2); TRIGLYCERIDES LEVEL 155 MG/DL (<150)
== END ==
LOC: M LAB 06:40
PROVIDERS: ATTEND Physician Assistant
DX: I25.10 Atherosclerotic heart disease of native coronary artery without angina pectoris (principal); E78.2 Mixed hyperlipidemia; I25.5 Ischemic cardiomyopathy

== ENCOUNTER → 2021-08-05 | Outpatient (CLI) | payer BC | LOC: M PAIN 09:15 | PROVIDERS: ATTEND Anesthesiology | DX: M25.511 Pain in right shoulder (principal); M79.2 Neuralgia and neuritis, unspecified; M25.512 Pain in left shoulder; I10 Essential (primary) hypertension; I25.2 Old myocardial infarction; E78.00 Pure hypercholesterolemia, unspecified; M54.2 Cervicalgia; Z79.82 Long term (current) use of aspirin; Z79.02 Long term (current) use of antithrombotics/antiplatelets; Z79.891 Long term (current) use of opiate analgesic; Z79.899 Other long term (current) drug therapy; Z88.0 Allergy status to penicillin; Z88.8 Allergy status to other drugs, medicaments and biological substances; Z98.1 Arthrodesis status; Z96.612 Presence of left artificial shoulder joint | CPT/HCPCS: 76000; G0463 ==

== ENCOUNTER → 2021-09-06 | Outpatient (CLI) | payer BC | LOC: M PLAIMG 12:43 | PROVIDERS: ATTEND Anesthesiology | DX: M25.511 Pain in right shoulder (principal) ==

== ENCOUNTER → 2021-10-13 | Outpatient (CLI) | payer BC | LOC: M RAD 16:04 | PROVIDERS: ATTEND Anesthesiology | DX: M25.511 Pain in right shoulder (principal) ==

== ENCOUNTER → 2021-11-09 | Outpatient (CLI) | payer BC | LOC: M PAIN 09:15 | PROVIDERS: ATTEND Anesthesiology | DX: M25.511 Pain in right shoulder (principal); M25.512 Pain in left shoulder; M79.2 Neuralgia and neuritis, unspecified; Z79.891 Long term (current) use of opiate analgesic; I10 Essential (primary) hypertension; E78.00 Pure hypercholesterolemia, unspecified; M54.2 Cervicalgia; I25.2 Old myocardial infarction; Z87.891 Personal history of nicotine dependence; Z79.82 Long term (current) use of aspirin; Z79.02 Long term (current) use of antithrombotics/antiplatelets; Z79.899 Other long term (current) drug therapy; Z88.0 Allergy status to penicillin; Z88.8 Allergy status to other drugs, medicaments and biological substances ==

== ENCOUNTER → 2021-11-10 | Outpatient (CLI) | payer BC ==
[2021-11-10 07:55] LABS: BLOOD UREA NITROGEN 18 MG/DL (7-18); CALCIUM LEVEL 8.7 MG/DL (8.8-10.2); CARBON DIOXIDE LEVEL 27 MEQ/L (21-32); CHLORIDE LEVEL 107 MEQ/L (98-107); CREATININE FOR GFR 1.13 MG/DL (0.70-1.30); GLOMERULAR FILTRATION RATE > 60.0 (>49); GLUCOSE, FASTING 130 MG/DL (70-100); MAGNESIUM LEVEL 2.5 MG/DL (1.8-2.4); POTASSIUM SERUM 4.4 MEQ/L (3.5-5.1); SODIUM LEVEL 139 MEQ/L (136-145)
== END ==
LOC: M LAB 06:08
PROVIDERS: ATTEND Physician Assistant
DX: I25.5 Ischemic cardiomyopathy (principal)

== ENCOUNTER → 2022-05-15 | Outpatient (CLI) | payer MEDICARE ==
[~2022-05-15] MED LIST changes: +LEVO1TAB40 PO; -LEVO750T13 PO
[2022-05-15 09:05] LABS: HEMOGLOBIN 14.1 g/dl (13.5-17.5); MEAN CORPUSCULAR HEMOGLOBIN 30.6 pg (27.0-33.0); MEAN CORPUSCULAR HGB CONC 32.8 g/dl (32.0-36.5); MEAN CORPUSCULAR VOLUME 93.3 fl (80.0-96.0); PLATELET COUNT, AUTOMATED 225 10^3/uL (150-450); RED BLOOD COUNT 4.61 10^6/uL (4.30-6.10); WHITE BLOOD COUNT 4.3 10^3/uL (4.0-10.0)
[2022-05-15 09:28] LABS: MAGNESIUM LEVEL 2.2 MG/DL (1.8-2.4)
[2022-05-15 09:30] LABS: ALBUMIN 3.7 G/DL (3.2-5.2); ALKALINE PHOSPHATASE 60 U/L (46-116); ALT/SGPT 29 U/L (7.0-40); AST/SGOT 16 U/L (<34); BILIRUBIN,TOTAL 0.4 MG/DL (0.3-1.2); BLOOD UREA NITROGEN 17 MG/DL (9-23); CALCIUM LEVEL 8.7 MG/DL (8.3-10.6); CARBON DIOXIDE LEVEL 26 MMOL/L (20-31); CHLORIDE LEVEL 106 MMOL/L (98-107); CHOLESTEROL LEVEL 136 MG/DL (<200); CHOLESTEROL RISK RATIO 3.61 (<5); CREATININE FOR GFR 0.96 MG/DL (0.70-1.30); GLOMERULAR FILTRATION RATE > 60.0 (>49); GLUCOSE, FASTING 139 MG/DL (74-106); HDL CHOLESTEROL 37.6 MG/DL (>40); LDL CHOLESTEROL 44.8 MG/DL (<100); NON-HDL-C 98 MG/DL; POTASSIUM SERUM 4.2 MMOL/L (3.5-5.1); SODIUM LEVEL 140 MMOL/L (136-145); TOTAL PROTEIN 6.3 G/DL (5.7-8.2); TRIGLYCERIDES LEVEL 268 MG/DL (<150)
== END ==
LOC: M LAB 08:41
PROVIDERS: ATTEND Family Medicine
DX: I25.10 Atherosclerotic heart disease of native coronary artery without angina pectoris (principal); I25.5 Ischemic cardiomyopathy; E78.2 Mixed hyperlipidemia

== ENCOUNTER → 2022-05-18 | Outpatient (CLI) | payer MEDICARE ==
[2022-05-18 09:22] LABS: BASO % 0.4 % (0.0-1.0); EOS # 0.1 10^3/uL (0.0-0.5); HEMATOCRIT 48.2 % (42.0-52.0); HEMOGLOBIN 15.8 g/dl (13.5-17.5); LYMPH # 1.2 10^3/uL (1.5-5.0); LYMPH % 23.5 % (24.0-44.0); MEAN CORPUSCULAR HEMOGLOBIN 30.2 pg (27.0-33.0); MEAN CORPUSCULAR HGB CONC 32.8 g/dl (32.0-36.5); MONO # 0.4 10^3/uL (0.0-0.8); MONO % 7.8 % (2.0-8.0); NEUTROPHILS # 3.4 10^3/uL (1.5-8.5); NEUTROPHILS % 65.9 % (36.0-66.0); PLATELET COUNT, AUTOMATED 255 10^3/uL (150-450); RED BLOOD COUNT 5.24 10^6/uL (4.30-6.10); WHITE BLOOD COUNT 5.1 10^3/uL (4.0-10.0)
[2022-05-18 09:31] LABS: RHEUMATOID FACTOR QUANT < 3.5 IU/ML (<14)
[2022-05-18 10:29] LABS: ERYTHROCYTE SEDIMENTATION RATE 8 mm/hr (0-20)
[2022-05-19 12:08] LABS: ANTINUCLEAR ANTIBODIES DIRECT Negative (Negative)
== END ==
LOC: M LAB 08:20
PROVIDERS: ATTEND Orthopaedic Surgery
DX: M22.41 Chondromalacia patellae, right knee (principal)

== ENCOUNTER → 2022-06-01 | Outpatient (CLI) | payer MEDICARE | LOC: M PLARAD 09:59 | PROVIDERS: ATTEND Orthopaedic Surgery | DX: M54.50 Low back pain, unspecified (principal); M25.78 Osteophyte, vertebrae; M51.36 Other intervertebral disc degeneration, lumbar region ==

== ENCOUNTER → 2022-06-15 | Outpatient (CLI) | payer BC | LOC: M LABSMTC 09:48 | PROVIDERS: ATTEND Anesthesiology | DX: Z01.812 Encounter for preprocedural laboratory examination (principal); Z20.822 Contact with and (suspected) exposure to COVID-19 ==

== ENCOUNTER → 2022-06-19 | Outpatient (CLI) | payer OTHER ==
[~2022-06-19] MED LIST changes: +BUPIVACAINE HCL 0.25% 30ML VIAL As Ordered ONE; +ISOVUE-M 300 61% 15ML VIAL As Ordered ONE; +LIDOCAINE 1% SDV 30ML VIAL As Ordered ONE; +TRIAMCINOLONE ACETONIDE SUSP 40MG/ML 1ML VIAL As Ordered ONE; +diazePAM 5MG TABLET As Ordered ONE; +oxyCODONE 5MG TAB As Ordered ONE
== END ==
LOC: M PAIN 12:30
PROVIDERS: ATTEND Anesthesiology
DX: M25.512 Pain in left shoulder (principal); M25.511 Pain in right shoulder; I10 Essential (primary) hypertension; I25.2 Old myocardial infarction; E78.00 Pure hypercholesterolemia, unspecified; M54.2 Cervicalgia; M19.90 Unspecified osteoarthritis, unspecified site; Z95.5 Presence of coronary angioplasty implant and graft; Z98.1 Arthrodesis status; Z87.891 Personal history of nicotine dependence; Z79.82 Long term (current) use of aspirin; Z79.890 Hormone replacement therapy; Z79.891 Long term (current) use of opiate analgesic; Z79.899 Other long term (current) drug therapy; Z88.0 Allergy status to penicillin; Z88.8 Allergy status to other drugs, medicaments and biological substances
CPT/HCPCS: 64450; 77002; Q9967

== ENCOUNTER → 2022-07-11 | Outpatient (CLI) | payer OTHER ==
[~2022-07-11] MED LIST changes: -BUPIVACAINE HCL 0.25% 30ML VIAL As Ordered ONE; -ISOVUE-M 300 61% 15ML VIAL As Ordered ONE; -LIDOCAINE 1% SDV 30ML VIAL As Ordered ONE; -TRIAMCINOLONE ACETONIDE SUSP 40MG/ML 1ML VIAL As Ordered ONE; -diazePAM 5MG TABLET As Ordered ONE; -oxyCODONE 5MG TAB As Ordered ONE
== END ==
LOC: M PAIN 09:30
PROVIDERS: ATTEND Anesthesiology
DX: M25.512 Pain in left shoulder (principal); M79.2 Neuralgia and neuritis, unspecified; G89.29 Other chronic pain; I10 Essential (primary) hypertension; I25.2 Old myocardial infarction; Z95.5 Presence of coronary angioplasty implant and graft; Z96.612 Presence of left artificial shoulder joint; Z87.891 Personal history of nicotine dependence; Z88.1 Allergy status to other antibiotic agents; Z88.6 Allergy status to analgesic agent; Z79.01 Long term (current) use of anticoagulants; Z79.82 Long term (current) use of aspirin; Z79.899 Other long term (current) drug therapy

== ENCOUNTER → 2022-09-08 | Outpatient (CLI) | payer OTHER ==
[2022-09-08 08:37] LABS: HEMATOCRIT 44.2 % (42.0-52.0); HEMOGLOBIN 14.6 g/dl (13.5-17.5); MEAN CORPUSCULAR HEMOGLOBIN 30.9 pg (27.0-33.0); MEAN CORPUSCULAR VOLUME 93.6 fl (80.0-96.0); PLATELET COUNT, AUTOMATED 253 10^3/uL (150-450); RED BLOOD COUNT 4.72 10^6/uL (4.30-6.10); WHITE BLOOD COUNT 3.9 10^3/uL (4.0-10.0)
[2022-09-08 09:00] LABS: URIC ACID 5.5 MG/DL (3.7-9.2)
[2022-09-08 09:02] LABS: C REACTIVE PROTEIN QUANTITATIV < 0.40 MG/DL (<1.0)
[2022-09-08 09:07] LABS: ALBUMIN 4.2 G/DL (3.2-5.2); ALKALINE PHOSPHATASE 75 U/L (46-116); ALT/SGPT 32 U/L (7.0-40); AST/SGOT 21 U/L (<34); BILIRUBIN,TOTAL 0.7 MG/DL (0.3-1.2); BLOOD UREA NITROGEN 17 MG/DL (9-23); CALCIUM LEVEL 8.9 MG/DL (8.3-10.6); CARBON DIOXIDE LEVEL 27 MMOL/L (20-31); CHLORIDE LEVEL 104 MMOL/L (98-107); CHOLESTEROL LEVEL 149 MG/DL (<200); CREATININE FOR GFR 1.06 MG/DL (0.70-1.30); GLOMERULAR FILTRATION RATE > 60.0 (>49); GLUCOSE, FASTING 128 MG/DL (74-106); HDL CHOLESTEROL 35.4 MG/DL (>40); LDL CHOLESTEROL 51.2 MG/DL (<100); NON-HDL-C 113.6 MG/DL; PROSTATIC SPECIFIC AG MONITOR 0.33 NG/ML (< 4.00); SODIUM LEVEL 136 MMOL/L (136-145); TESTOSTERONE 349 NG/DL (241-827); THYROID STIMULATING HORMONE 7.806 uIU/ML (0.55-4.78); TRIGLYCERIDES LEVEL 312 MG/DL (<150)
[2022-09-08 09:08] LABS: HEMOGLOBIN A1c 7.1 % (4.0-6.0)
[2022-09-08 09:10] LABS: ERYTHROCYTE SEDIMENTATION RATE 20 mm/hr (0-20)
== END ==
LOC: M LAB 07:18
PROVIDERS: ATTEND Family Medicine
DX: I10 Essential (primary) hypertension (principal)

== ENCOUNTER → 2022-09-12 | Outpatient (CLI) | payer OTHER ==
[2022-09-12 07:49] LABS: BASO % 0.6 % (0.0-1.0); EOS # 0.1 10^3/uL (0.0-0.5); EOS % 2.3 % (0.0-3.0); HEMATOCRIT 43.6 % (42.0-52.0); HEMOGLOBIN 14.4 g/dl (13.5-17.5); LYMPH # 1.5 10^3/uL (1.5-5.0); LYMPH % 45.2 % (24.0-44.0); MEAN CORPUSCULAR HEMOGLOBIN 30.6 pg (27.0-33.0); MEAN CORPUSCULAR VOLUME 92.8 fl (80.0-96.0); MONO # 0.5 10^3/uL (0.0-0.8); NEUTROPHILS # 1.3 10^3/uL (1.5-8.5); NEUTROPHILS % 36.9 % (36.0-66.0); PLATELET COUNT, AUTOMATED 254 10^3/uL (150-450); WHITE BLOOD COUNT 3.4 10^3/uL (4.0-10.0)
[2022-09-12 08:07] LABS: ERYTHROCYTE SEDIMENTATION RATE 28 mm/hr (0-20)
[2022-09-12 08:19] LABS: C REACTIVE PROTEIN QUANTITATIV 0.8 MG/DL (<1.0)
[2022-09-12 08:20] LABS: RHEUMATOID FACTOR QUANT 4.2 IU/ML (<14)
[2022-09-13 12:08] LABS: ANTINUCLEAR ANTIBODIES DIRECT Negative (Negative)
== END ==
LOC: M LAB 07:00
PROVIDERS: ATTEND Physician Assistant
DX: M25.561 Pain in right knee (principal)

== ENCOUNTER → 2022-10-05 | Outpatient (CLI) | payer OTHER | LOC: M PAIN 15:00 | PROVIDERS: ATTEND Anesthesiology | DX: M96.1 Postlaminectomy syndrome, not elsewhere classified (principal); M51.16 Intervertebral disc disorders with radiculopathy, lumbar region; I10 Essential (primary) hypertension; E78.00 Pure hypercholesterolemia, unspecified; I25.2 Old myocardial infarction; M19.90 Unspecified osteoarthritis, unspecified site; M25.512 Pain in left shoulder; M25.511 Pain in right shoulder; Z87.891 Personal history of nicotine dependence; Z79.891 Long term (current) use of opiate analgesic; Z79.82 Long term (current) use of aspirin; Z79.02 Long term (current) use of antithrombotics/antiplatelets; Z79.899 Other long term (current) drug therapy; Z95.5 Presence of coronary angioplasty implant and graft; Z88.0 Allergy status to penicillin; Z88.8 Allergy status to other drugs, medicaments and biological substances ==

== ENCOUNTER → 2022-11-13 | Outpatient (CLI) | payer OTHER | LOC: M PAIN 09:45 | PROVIDERS: ATTEND Nurse Practitioner Family | DX: M96.1 Postlaminectomy syndrome, not elsewhere classified (principal); G89.29 Other chronic pain; I10 Essential (primary) hypertension; I25.2 Old myocardial infarction; E78.00 Pure hypercholesterolemia, unspecified; M25.511 Pain in right shoulder; M25.512 Pain in left shoulder; M54.2 Cervicalgia; Z87.891 Personal history of nicotine dependence; Z79.891 Long term (current) use of opiate analgesic; Z79.82 Long term (current) use of aspirin; Z79.890 Hormone replacement therapy; Z79.02 Long term (current) use of antithrombotics/antiplatelets; Z79.899 Other long term (current) drug therapy; Z95.5 Presence of coronary angioplasty implant and graft; Z88.0 Allergy status to penicillin; Z88.8 Allergy status to other drugs, medicaments and biological substances ==

== ENCOUNTER → 2022-11-15 | Outpatient (CLI) | payer OTHER ==
[2022-11-15 08:06] LABS: BLOOD UREA NITROGEN 15 MG/DL (9-23); CALCIUM LEVEL 9.1 MG/DL (8.3-10.6); CARBON DIOXIDE LEVEL 26 MMOL/L (20-31); CHLORIDE LEVEL 107 MMOL/L (98-107); GLOMERULAR FILTRATION RATE > 60.0 (>49); GLUCOSE, FASTING 145 MG/DL (74-106); MAGNESIUM LEVEL 2.2 MG/DL (1.8-2.4); POTASSIUM SERUM 4.4 MMOL/L (3.5-5.1); SODIUM LEVEL 139 MMOL/L (136-145)
== END ==
LOC: M LAB 07:06
PROVIDERS: ATTEND Physician Assistant
DX: I25.5 Ischemic cardiomyopathy (principal)

== ENCOUNTER → 2022-12-05 | Outpatient (CLI) | payer OTHER ==
[2022-12-05 08:16] LABS: BLOOD UREA NITROGEN 15 MG/DL (9-23); CREATININE FOR GFR 0.91 MG/DL (0.70-1.30); GLOMERULAR FILTRATION RATE > 60.0 (>49)
== END ==
LOC: M LAB 07:06
PROVIDERS: ATTEND Nurse Practitioner Family
DX: M96.1 Postlaminectomy syndrome, not elsewhere classified (principal)

== ENCOUNTER → 2022-12-14 | Outpatient (CLI) | payer OTHER | LOC: M PLARAD 10:23 | PROVIDERS: ATTEND Nurse Practitioner Family | DX: M96.1 Postlaminectomy syndrome, not elsewhere classified (principal) ==

== ENCOUNTER → 2022-12-19 | Outpatient (CLI) | payer OTHER | LOC: M RAD 09:43 | PROVIDERS: ATTEND Family Medicine | DX: M19.90 Unspecified osteoarthritis, unspecified site (principal) ==

== ENCOUNTER → 2023-01-01 | Outpatient (CLI) | payer OTHER | LOC: M PAIN 11:15 | PROVIDERS: ATTEND Nurse Practitioner Family | DX: M50.10 Cervical disc disorder with radiculopathy, unspecified cervical region (principal); M96.1 Postlaminectomy syndrome, not elsewhere classified; G89.29 Other chronic pain; I10 Essential (primary) hypertension; E78.00 Pure hypercholesterolemia, unspecified; M25.511 Pain in right shoulder; M25.512 Pain in left shoulder; M19.90 Unspecified osteoarthritis, unspecified site; Z87.891 Personal history of nicotine dependence; Z79.82 Long term (current) use of aspirin; Z79.890 Hormone replacement therapy; Z79.02 Long term (current) use of antithrombotics/antiplatelets; Z79.891 Long term (current) use of opiate analgesic; Z79.899 Other long term (current) drug therapy; Z88.0 Allergy status to penicillin; Z88.8 Allergy status to other drugs, medicaments and biological substances ==

== ENCOUNTER → 2023-02-20 | Outpatient (CLI) | payer OTHER ==
[2023-02-20 10:32] LABS: HEMOGLOBIN 15.2 g/dl (13.5-17.5); MEAN CORPUSCULAR HEMOGLOBIN 29.9 pg (27.0-33.0); MEAN CORPUSCULAR VOLUME 90.4 fl (80.0-96.0); PLATELET COUNT, AUTOMATED 286 10^3/uL (150-450); RED BLOOD COUNT 5.09 10^6/uL (4.30-6.10); WHITE BLOOD COUNT 4.7 10^3/uL (4.0-10.0)
[2023-02-20 10:53] LABS: HEMOGLOBIN A1c 6.7 % (4.0-6.0)
[2023-02-20 11:09] LABS: ALBUMIN 4.1 G/DL (3.2-5.2); ALKALINE PHOSPHATASE 78 U/L (46-116); ALT/SGPT 29 U/L (7.0-40); AST/SGOT 15 U/L (<34); BILIRUBIN,TOTAL 0.5 MG/DL (0.3-1.2); BLOOD UREA NITROGEN 16 MG/DL (9-23); CALCIUM LEVEL 9.3 MG/DL (8.3-10.6); CARBON DIOXIDE LEVEL 26 MMOL/L (20-31); CHLORIDE LEVEL 106 MMOL/L (98-107); CHOLESTEROL LEVEL 134 MG/DL (<200); CHOLESTEROL RISK RATIO 3.63 (<5); CREATININE FOR GFR 0.89 MG/DL (0.70-1.30); GLOMERULAR FILTRATION RATE > 60.0 (>49); GLUCOSE, FASTING 129 MG/DL (74-106); HDL CHOLESTEROL 36.9 MG/DL (>40); LDL CHOLESTEROL 49.5 MG/DL (<100); NON-HDL-C 97.1 MG/DL; POTASSIUM SERUM 4.5 MMOL/L (3.5-5.1); SODIUM LEVEL 141 MMOL/L (136-145); THYROID STIMULATING HORMONE 0.885 uIU/ML (0.55-4.78); TRIGLYCERIDES LEVEL 238 MG/DL (<150)
== END ==
LOC: M RAD 09:22
PROVIDERS: ATTEND Family Medicine
DX: I10 Essential (primary) hypertension (principal); R53.83 Other fatigue; E03.9 Hypothyroidism, unspecified; M41.25 Other idiopathic scoliosis, thoracolumbar region; R94.31 Abnormal electrocardiogram [ECG] [EKG]
CPT/HCPCS: 36415; 71046; 80053; 80061; 83036; 84443; 85027; 93005; G0103

== ENCOUNTER → 2023-03-20 | Outpatient (CLI) | payer OTHER ==
[~2023-03-20] MED LIST changes: +ISOVUE-300 61% 100ML VIAL As Ordered ONE; +LIDOCAINE 1% MDV 20ML VIAL As Ordered ONE; +methylPREDNISolone SUSP 40MG/ML 1ML VIAL (DEPO MEDROL) As Ordered ONE
== END ==
LOC: M RAD 14:48
PROVIDERS: ATTEND Physician Assistant
DX: M16.12 Unilateral primary osteoarthritis, left hip (principal)
CPT/HCPCS: 20610; 77002; J1030; Q9967

== ENCOUNTER → 2023-04-03 | Outpatient (CLI) | payer OTHER ==
[~2023-04-03] MED LIST changes: -ISOVUE-300 61% 100ML VIAL As Ordered ONE; -LIDOCAINE 1% MDV 20ML VIAL As Ordered ONE; -methylPREDNISolone SUSP 40MG/ML 1ML VIAL (DEPO MEDROL) As Ordered ONE
== END ==
LOC: M PAIN 10:15
PROVIDERS: ATTEND Nurse Practitioner Family
DX: M96.1 Postlaminectomy syndrome, not elsewhere classified (principal); G89.29 Other chronic pain; I10 Essential (primary) hypertension; E78.00 Pure hypercholesterolemia, unspecified; I25.2 Old myocardial infarction; M25.511 Pain in right shoulder; M25.512 Pain in left shoulder; M19.90 Unspecified osteoarthritis, unspecified site; M54.2 Cervicalgia; Z87.891 Personal history of nicotine dependence; Z79.82 Long term (current) use of aspirin; Z79.890 Hormone replacement therapy; Z79.02 Long term (current) use of antithrombotics/antiplatelets; Z79.891 Long term (current) use of opiate analgesic; Z79.899 Other long term (current) drug therapy; Z88.0 Allergy status to penicillin; Z88.8 Allergy status to other drugs, medicaments and biological substances

== ENCOUNTER → 2023-04-27 | Outpatient (CLI) | payer OTHER ==
[~2023-04-27] MED LIST changes: +ISOVUE-M 300 61% 15ML VIAL As Ordered ONE; +LIDOCAINE 1% SDV 30ML VIAL As Ordered ONE; +diazePAM 5MG TABLET As Ordered ONE; +methylPREDNISolone SUSP 40MG/ML 1ML VIAL (DEPO MEDROL) As Ordered ONE; +oxyCODONE 5MG TAB As Ordered ONE
== END ==
LOC: M PAIN 12:45
PROVIDERS: ATTEND Anesthesiology
DX: M50.13 Cervical disc disorder with radiculopathy, cervicothoracic region (principal); I10 Essential (primary) hypertension; I25.2 Old myocardial infarction; E78.00 Pure hypercholesterolemia, unspecified; M25.511 Pain in right shoulder; M25.512 Pain in left shoulder; Z87.891 Personal history of nicotine dependence; Z79.82 Long term (current) use of aspirin; Z79.890 Hormone replacement therapy; Z79.02 Long term (current) use of antithrombotics/antiplatelets; Z79.891 Long term (current) use of opiate analgesic; Z79.899 Other long term (current) drug therapy; Z88.0 Allergy status to penicillin; Z88.8 Allergy status to other drugs, medicaments and biological substances
CPT/HCPCS: 62321; J1030; Q9967

== ENCOUNTER → 2023-05-29 | Outpatient (CLI) | payer OTHER ==
[~2023-05-29] MED LIST changes: -ISOVUE-M 300 61% 15ML VIAL As Ordered ONE; -LIDOCAINE 1% SDV 30ML VIAL As Ordered ONE; -diazePAM 5MG TABLET As Ordered ONE; -methylPREDNISolone SUSP 40MG/ML 1ML VIAL (DEPO MEDROL) As Ordered ONE; -oxyCODONE 5MG TAB As Ordered ONE
== END ==
LOC: M PAIN 11:15
PROVIDERS: ATTEND Nurse Practitioner Family
DX: M96.1 Postlaminectomy syndrome, not elsewhere classified (principal); G89.29 Other chronic pain; M54.2 Cervicalgia; M25.511 Pain in right shoulder; M25.512 Pain in left shoulder; Z87.891 Personal history of nicotine dependence; Z79.891 Long term (current) use of opiate analgesic; Z79.82 Long term (current) use of aspirin; Z79.890 Hormone replacement therapy; Z79.899 Other long term (current) drug therapy; Z79.02 Long term (current) use of antithrombotics/antiplatelets; Z88.0 Allergy status to penicillin; Z88.8 Allergy status to other drugs, medicaments and biological substances

== ENCOUNTER → 2023-06-28 | Outpatient (CLI) | payer OTHER ==
[2023-06-28 11:24] LABS: HEMOGLOBIN 14.5 g/dl (13.5-17.5); MEAN CORPUSCULAR HEMOGLOBIN 31.3 pg (27.0-33.0); MEAN CORPUSCULAR HGB CONC 33.7 g/dl (32.0-36.5); MEAN CORPUSCULAR VOLUME 92.7 fl (80.0-96.0); PLATELET COUNT, AUTOMATED 267 10^3/uL (150-450); RED BLOOD COUNT 4.64 10^6/uL (4.30-6.10); WHITE BLOOD COUNT 4.8 10^3/uL (4.0-10.0)
[2023-06-28 11:42] LABS: HEMOGLOBIN A1c 6.6 % (4.0-6.0)
[2023-06-28 11:43] LABS: INR 1.08; PROTHROMBIN TIME 13.7 SECONDS (12.5-14.5)
[2023-06-28 11:45] LABS: ALBUMIN 4.1 G/DL (3.2-5.2); ALKALINE PHOSPHATASE 66 U/L (46-116); ALT/SGPT 28 U/L (7.0-40); AST/SGOT 13 U/L (<34); BILIRUBIN,TOTAL 0.6 MG/DL (0.3-1.2); BLOOD UREA NITROGEN 14 MG/DL (9-23); CALCIUM LEVEL 9.5 MG/DL (8.3-10.6); CARBON DIOXIDE LEVEL 27 MMOL/L (20-31); CHLORIDE LEVEL 106 MMOL/L (98-107); CHOLESTEROL LEVEL 135 MG/DL (<200); CREATININE FOR GFR 0.92 MG/DL (0.70-1.30); GLOMERULAR FILTRATION RATE > 60.0 (>49); GLUCOSE, FASTING 135 MG/DL (74-106); HDL CHOLESTEROL 36.4 MG/DL (>40); NON-HDL-C 98.6 MG/DL; POTASSIUM SERUM 4.4 MMOL/L (3.5-5.1); SODIUM LEVEL 139 MMOL/L (136-145); TOTAL PROTEIN 6.9 G/DL (5.7-8.2); TRIGLYCERIDES LEVEL 238 MG/DL (<150)
[2023-06-28 11:46] LABS: THYROID STIMULATING HORMONE 1.928 uIU/ML (0.55-4.78)
== END ==
LOC: M PLARAD 10:26 → M RAD 10:26
PROVIDERS: ATTEND Family Medicine
DX: Z01.818 Encounter for other preprocedural examination (principal); I10 Essential (primary) hypertension; E11.9 Type 2 diabetes mellitus without complications; Z79.01 Long term (current) use of anticoagulants

== ENCOUNTER → 2023-08-28 | Outpatient (CLI) | payer OTHER | LOC: M PAIN 11:15 | PROVIDERS: ATTEND Nurse Practitioner Family | DX: M96.1 Postlaminectomy syndrome, not elsewhere classified (principal); I10 Essential (primary) hypertension; E78.00 Pure hypercholesterolemia, unspecified; Z87.891 Personal history of nicotine dependence; Z79.01 Long term (current) use of anticoagulants; Z79.02 Long term (current) use of antithrombotics/antiplatelets; Z79.82 Long term (current) use of aspirin; Z79.890 Hormone replacement therapy; Z79.891 Long term (current) use of opiate analgesic; Z88.5 Allergy status to narcotic agent; Z88.8 Allergy status to other drugs, medicaments and biological substances ==

== ENCOUNTER 2023-09-28 05:59 | Emergency (ER) | payer OTHER ==
[~2023-09-28] VITALS: Ht 167.6 cm; Wt 82.9 kg
[2023-09-28] MEDS ORDERED: CIPR7.5D2 AD (08:36)
[2023-09-28 08:50] VITALS: BP 126/64; TEMP 96.9; O2SAT 97
== END 2023-09-28 08:52 | disposition home or self-care (01) ==
LOC: M ED 05:59
DX: H72.91 Unspecified perforation of tympanic membrane, right ear (principal); H66.91 Otitis media, unspecified, right ear; Z87.891 Personal history of nicotine dependence; Z88.1 Allergy status to other antibiotic agents; Z88.8 Allergy status to other drugs, medicaments and biological substances; Z79.1 Long term (current) use of non-steroidal anti-inflammatories (NSAID); Z79.810 Long term (current) use of selective estrogen receptor modulators (SERMs); Z79.52 Long term (current) use of systemic steroids; Z79.899 Other long term (current) drug therapy

== ENCOUNTER → 2023-10-02 | Outpatient (CLI) | payer OTHER ==
[~2023-10-02] MED LIST changes: +CIPR7.5D2 AD
== END ==
LOC: M PAIN 14:45
PROVIDERS: ATTEND Nurse Practitioner Family
DX: M96.1 Postlaminectomy syndrome, not elsewhere classified (principal); G89.29 Other chronic pain; M54.2 Cervicalgia; I10 Essential (primary) hypertension; I25.2 Old myocardial infarction; E78.00 Pure hypercholesterolemia, unspecified; M25.511 Pain in right shoulder; M25.512 Pain in left shoulder; Z87.891 Personal history of nicotine dependence; Z79.82 Long term (current) use of aspirin; Z79.891 Long term (current) use of opiate analgesic; Z79.890 Hormone replacement therapy; Z79.899 Other long term (current) drug therapy; Z88.0 Allergy status to penicillin; Z88.8 Allergy status to other drugs, medicaments and biological substances

== ENCOUNTER → 2023-10-22 | Outpatient (CLI) | payer OTHER ==
[2023-10-22 09:53] LABS: HEMATOCRIT 44.8 % (42.0-52.0); HEMOGLOBIN 14.7 g/dl (13.5-17.5); MEAN CORPUSCULAR HEMOGLOBIN 30.6 pg (27.0-33.0); MEAN CORPUSCULAR HGB CONC 32.8 g/dl (32.0-36.5); MEAN CORPUSCULAR VOLUME 93.1 fl (80.0-96.0); PLATELET COUNT, AUTOMATED 250 10^3/uL (150-450); RED BLOOD COUNT 4.81 10^6/uL (4.30-6.10); WHITE BLOOD COUNT 4.4 10^3/uL (4.0-10.0)
[2023-10-22 10:07] LABS: HEMOGLOBIN A1c 6.3 % (4.0-6.0)
[2023-10-22 10:22] LABS: PROSTATIC SPECIFIC AG MONITOR 0.31 NG/ML (< 4.00)
[2023-10-22 10:25] LABS: ALBUMIN 3.9 G/DL (3.2-5.2); ALKALINE PHOSPHATASE 65 U/L (46-116); ALT/SGPT 67 U/L (7.0-40); AST/SGOT 35 U/L (<34); BILIRUBIN,TOTAL 0.5 MG/DL (0.3-1.2); BLOOD UREA NITROGEN 13 MG/DL (9-23); CALCIUM LEVEL 9.3 MG/DL (8.3-10.6); CARBON DIOXIDE LEVEL 26 MMOL/L (20-31); CHLORIDE LEVEL 110 MMOL/L (98-107); CHOLESTEROL LEVEL 128 MG/DL (<200); CHOLESTEROL RISK RATIO 3.09 (<5); CREATININE FOR GFR 0.81 MG/DL (0.70-1.30); GLOMERULAR FILTRATION RATE > 60.0 (>49); GLUCOSE, FASTING 116 MG/DL (74-106); HDL CHOLESTEROL 41.3 MG/DL (>40); LDL CHOLESTEROL 64.7 MG/DL (<100); NON-HDL-C 86.7 MG/DL; POTASSIUM SERUM 4.1 MMOL/L (3.5-5.1); SODIUM LEVEL 144 MMOL/L (136-145); TOTAL PROTEIN 6.6 G/DL (5.7-8.2); TRIGLYCERIDES LEVEL 110 MG/DL (<150)
[2023-10-22 10:27] LABS: TESTOSTERONE 300 NG/DL (241-827); THYROID STIMULATING HORMONE 0.549 uIU/ML (0.55-4.78); TOTAL 25(OH) VITAMIN D 49.8 NG/ML (20.0-100.0)
== END ==
LOC: M LAB 08:24
PROVIDERS: ATTEND Family Medicine
DX: I10 Essential (primary) hypertension (principal); E03.9 Hypothyroidism, unspecified; R53.83 Other fatigue; Z79.899 Other long term (current) drug therapy; N40.0 Benign prostatic hyperplasia without lower urinary tract symptoms

== ENCOUNTER → 2023-11-07 | Outpatient (CLI) | payer OTHER | LOC: M PAIN 13:00 | PROVIDERS: ATTEND Anesthesiology | DX: M54.2 Cervicalgia (principal); Z53.9 Procedure and treatment not carried out, unspecified reason ==

== ENCOUNTER → 2023-12-12 | Outpatient (CLI) | payer OTHER ==
[2023-12-12 10:29] LABS: BLOOD UREA NITROGEN 17 MG/DL (9-23); CALCIUM LEVEL 8.9 MG/DL (8.3-10.6); CARBON DIOXIDE LEVEL 28 MMOL/L (20-31); CHLORIDE LEVEL 109 MMOL/L (98-107); CREATININE FOR GFR 0.79 MG/DL (0.70-1.30); GLOMERULAR FILTRATION RATE > 60.0 (>49); GLUCOSE, FASTING 129 MG/DL (74-106); MAGNESIUM LEVEL 2.1 MG/DL (1.8-2.4); SODIUM LEVEL 143 MMOL/L (136-145)
== END ==
LOC: M LAB 09:23
PROVIDERS: ATTEND Physician Assistant
DX: I25.5 Ischemic cardiomyopathy (principal)

== ENCOUNTER → 2024-01-01 | Outpatient (CLI) | payer OTHER | LOC: M PAIN 14:30 | PROVIDERS: ATTEND Nurse Practitioner Family | DX: M96.1 Postlaminectomy syndrome, not elsewhere classified (principal); G89.29 Other chronic pain; I10 Essential (primary) hypertension; I25.2 Old myocardial infarction; E78.00 Pure hypercholesterolemia, unspecified; M25.511 Pain in right shoulder; M25.512 Pain in left shoulder; Z87.891 Personal history of nicotine dependence; Z79.891 Long term (current) use of opiate analgesic; Z79.82 Long term (current) use of aspirin; Z79.890 Hormone replacement therapy; Z79.899 Other long term (current) drug therapy; Z88.0 Allergy status to penicillin; Z88.8 Allergy status to other drugs, medicaments and biological substances ==

== ENCOUNTER → 2024-01-02 | Outpatient (CLI) | payer OTHER ==
[2024-01-02 09:14] LABS: HEMATOCRIT 42.9 % (42.0-52.0); HEMOGLOBIN 14.1 g/dl (13.5-17.5); MEAN CORPUSCULAR HEMOGLOBIN 31.5 pg (27.0-33.0); MEAN CORPUSCULAR HGB CONC 32.9 g/dl (32.0-36.5); MEAN CORPUSCULAR VOLUME 95.8 fl (80.0-96.0); PLATELET COUNT, AUTOMATED 254 10^3/uL (150-450); RED BLOOD COUNT 4.48 10^6/uL (4.30-6.10); WHITE BLOOD COUNT 4.1 10^3/uL (4.0-10.0)
[2024-01-02 09:28] LABS: ERYTHROCYTE SEDIMENTATION RATE 13 mm/hr (0-20)
[2024-01-02 09:35] LABS: URIC ACID 5.1 MG/DL (3.7-9.2)
[2024-01-02 09:37] LABS: C REACTIVE PROTEIN QUANTITATIV < 0.40 MG/DL (<1.0)
[2024-01-02 09:39] LABS: ALBUMIN 3.9 G/DL (3.2-5.2); ALKALINE PHOSPHATASE 56 U/L (46-116); ALT/SGPT 41 U/L (7.0-40); AST/SGOT 21 U/L (<34); BILIRUBIN,TOTAL 0.5 MG/DL (0.3-1.2); BLOOD UREA NITROGEN 18 MG/DL (9-23); CALCIUM LEVEL 8.8 MG/DL (8.3-10.6); CARBON DIOXIDE LEVEL 29 MMOL/L (20-31); CHLORIDE LEVEL 107 MMOL/L (98-107); CREATININE FOR GFR 0.97 MG/DL (0.70-1.30); GLOMERULAR FILTRATION RATE > 60.0 (>49); GLUCOSE, FASTING 123 MG/DL (74-106); HEMOGLOBIN A1c 6.2 % (4.0-6.0); POTASSIUM SERUM 4.4 MMOL/L (3.5-5.1); RHEUMATOID FACTOR QUANT < 3.5 IU/ML (<14); SODIUM LEVEL 142 MMOL/L (136-145); TOTAL PROTEIN 6.3 G/DL (5.7-8.2)
[2024-01-03 13:11] LABS: CYCLIC CITRULLINATED PEPTIDE < 16 UNITS (<20)
[2024-01-03 16:02] LABS: ANA SCREEN, IFA NEGATIVE (NEGATIVE)
== END ==
LOC: M RAD 07:22
PROVIDERS: ATTEND Family Medicine
DX: M54.2 Cervicalgia (principal); M06.9 Rheumatoid arthritis, unspecified; M19.071 Primary osteoarthritis, right ankle and foot; M47.812 Spondylosis without myelopathy or radiculopathy, cervical region; Z98.1 Arthrodesis status; M19.072 Primary osteoarthritis, left ankle and foot; M20.11 Hallux valgus (acquired), right foot; M20.12 Hallux valgus (acquired), left foot; M47.816 Spondylosis without myelopathy or radiculopathy, lumbar region; Z96.611 Presence of right artificial shoulder joint; Z96.612 Presence of left artificial shoulder joint; Z79.899 Other long term (current) drug therapy

== ENCOUNTER → 2024-04-03 | Outpatient (CLI) | payer OTHER | LOC: M PAIN 14:30 | PROVIDERS: ATTEND Nurse Practitioner Family | DX: M96.1 Postlaminectomy syndrome, not elsewhere classified (principal); Z79.891 Long term (current) use of opiate analgesic; G89.29 Other chronic pain; M25.511 Pain in right shoulder; M54.2 Cervicalgia; M25.512 Pain in left shoulder; I10 Essential (primary) hypertension; I25.2 Old myocardial infarction; E78.00 Pure hypercholesterolemia, unspecified; Z87.891 Personal history of nicotine dependence; Z79.890 Hormone replacement therapy; Z79.02 Long term (current) use of antithrombotics/antiplatelets; Z79.899 Other long term (current) drug therapy; Z88.0 Allergy status to penicillin; Z88.8 Allergy status to other drugs, medicaments and biological substances ==

== ENCOUNTER → 2024-05-06 | Outpatient (CLI) | payer OTHER ==
[2024-05-06 08:15] LABS: HEMATOCRIT 42.8 % (42.0-52.0); HEMOGLOBIN 14.4 g/dl (13.5-17.5); MEAN CORPUSCULAR HEMOGLOBIN 31.3 pg (27.0-33.0); MEAN CORPUSCULAR HGB CONC 33.6 g/dl (32.0-36.5); PLATELET COUNT, AUTOMATED 259 10^3/uL (150-450); WHITE BLOOD COUNT 4.3 10^3/uL (4.0-10.0)
[2024-05-06 08:45] LABS: ALBUMIN 3.7 G/DL (3.2-5.2); ALKALINE PHOSPHATASE 66 U/L (40-129); ALT/SGPT 29 U/L (7.0-40); AST/SGOT 16 U/L (<34); BILIRUBIN,TOTAL 0.5 MG/DL (0.3-1.2); BLOOD UREA NITROGEN 19 MG/DL (9-23); CALCIUM LEVEL 9.2 MG/DL (8.3-10.6); CARBON DIOXIDE LEVEL 25 MMOL/L (20-31); CHLORIDE LEVEL 109 MMOL/L (98-107); CHOLESTEROL LEVEL 151 MG/DL (<200); CHOLESTEROL RISK RATIO 3.56 (<5); CREATININE FOR GFR 0.91 MG/DL (0.70-1.30); GLOMERULAR FILTRATION RATE > 60.0 (>49); GLUCOSE, FASTING 136 MG/DL (74-106); HDL CHOLESTEROL 42.3 MG/DL (>40); LDL CHOLESTEROL 74.7 MG/DL (<100); NON-HDL-C 108.7 MG/DL; POTASSIUM SERUM 4.4 MMOL/L (3.5-5.1); SODIUM LEVEL 140 MMOL/L (136-145); TOTAL PROTEIN 6.6 G/DL (5.7-8.2); TRIGLYCERIDES LEVEL 170 MG/DL (<150)
[2024-05-06 08:46] LABS: HEMOGLOBIN A1c 6.4 % (4.0-6.0); PROSTATIC SPECIFIC AG MONITOR 0.34 NG/ML (< 4.00)
[2024-05-06 08:50] LABS: TESTOSTERONE 322 NG/DL (241-827)
[2024-05-06 08:52] LABS: TOTAL 25(OH) VITAMIN D 52.4 NG/ML (20.0-100.0)
== END ==
LOC: M LAB 07:27
PROVIDERS: ATTEND Family Medicine
DX: I10 Essential (primary) hypertension (principal); R53.83 Other fatigue; R97.20 Elevated prostate specific antigen [PSA]

== ENCOUNTER → 2024-07-07 | Outpatient (CLI) | payer MEDICARE | LOC: M PAIN 16:00 | PROVIDERS: ATTEND Nurse Practitioner Family | DX: M50.10 Cervical disc disorder with radiculopathy, unspecified cervical region (principal); M79.18 Myalgia, other site; M96.1 Postlaminectomy syndrome, not elsewhere classified; M47.812 Spondylosis without myelopathy or radiculopathy, cervical region; G89.29 Other chronic pain; I10 Essential (primary) hypertension; E78.5 Hyperlipidemia, unspecified; Z87.891 Personal history of nicotine dependence; Z79.890 Hormone replacement therapy; Z79.02 Long term (current) use of antithrombotics/antiplatelets; Z79.891 Long term (current) use of opiate analgesic; Z79.899 Other long term (current) drug therapy; Z88.0 Allergy status to penicillin; Z88.8 Allergy status to other drugs, medicaments and biological substances ==

== ENCOUNTER → 2024-08-12 | Outpatient (CLI) | payer MEDICARE | LOC: M RAD 07:34 | PROVIDERS: ATTEND Physician Assistant Surgical | DX: M54.2 Cervicalgia (principal) ==

== ENCOUNTER → 2025-01-29 | Outpatient (CLI) | payer MEDICARE ==
[~2025-01-29] MED LIST changes: -FLOM0.4C39 PO; +MORP-138 PO; -MORP15TASA PO; +TAMS-18 PO
== END ==
LOC: M RAD 14:46
PROVIDERS: ATTEND Physician Assistant Surgical
DX: M25.512 Pain in left shoulder (principal); M25.511 Pain in right shoulder; Z96.611 Presence of right artificial shoulder joint; Z96.612 Presence of left artificial shoulder joint

== ENCOUNTER → 2025-05-06 | Outpatient (CLI) | payer MEDICARE | LOC: M RAD 07:34 | PROVIDERS: ATTEND Physician Assistant Surgical | DX: M54.50 Low back pain, unspecified (principal); M47.816 Spondylosis without myelopathy or radiculopathy, lumbar region ==